=== PATIENT | male | born 1960 | race Caucasian/White ===

== ENCOUNTER 2017-05-24 10:03 | Day surgery (SDC) | payer MEDICAID, SELFPAY ==
[2017-05-24] VITALS (11 sets, daily range): BP systolic 137–217; BP diastolic 55–123; PULSE 48–94; RESP 16–20; TEMP 36.1–37.1; O2SAT 91–100; BMI 19.9
[2017-05-24 11:19] LABS: Amphetamine Urine VISTA NEGATIVE (<1000 ng/mL); Barbiturate Urine VISTA NEGATIVE (< 200 ng/mL); Benzodiazepine Urine VISTA NEGATIVE (< 200 ng/mL); Cocaine Urine VISTA NEGATIVE (< 300 ng/mL); Ecstacy Urine VISTA NEGATIVE (< 500 ng/mL); Methadone Urine VISTA NEGATIVE (< 300 ng/mL); PCP Urine VISTA NEGATIVE (< 25 ng/mL); THC Urine VISTA POSITIVE (< 50 ng/mL); Vista UDS pH Range 5
[2017-05-24 11:37] LABS: Hematocrit 46.9 % (40-54); Hemoglobin 16.3 g/dl (13.0-16.5); Mean Corp Hgb Conc 34.8 g/gl (32-36); Mean Corpuscular Hgb 33.6 pg (27.0-32.0); Mean Corpuscular Volume 96.7 fL (80-94); Mean Platelet Vol. 10.9 fl (6.2-12.0); Platelet Count 137 K/mm3 (150-450); RBC Distribution Width CV 12.9 % (11.6-14.6); RBC Distribution Width SD 44.7 fl (35.1-43.9); Red Blood Count 4.85 M/mm3 (4.6-6.2); White Blood Count 5.5 K/mm3 (4.4-11.0)
[2017-05-24 11:38] LABS: Scan Indicated on CBC? Y/N NO
[2017-05-24 11:50] LABS: ALB/GLOB Ratio 1.1 RATIO (0.9-2.4); AST(SGOT) 16 U/L (15-37); Alanine Aminotransfer ALT/SGPT 21 U/L (16-61); Albumin, Serum 3.7 g/dL (3.2-5.0); Alkaline Phosphatase 68 U/L (45-117); BUN 22 mg/dL (7-18); BUN/Creat Ratio 17.6 RATIO (10-20); Calcium,Total 8.7 mg/dL (8.5-10.1); Chloride 105 mmol/L (98-107); Creatinine, Serum 1.25 mg/dL (0.70-1.30); EST Glomerular Filtration Rate 63 mL/min (>60); Est Glom Filt Rate - Afr Amer 76 mL/min (>60); Globulin 3.4 g/dL (2.2-4.2); Glucose 83 mg/dL (70-110); Potassium 4.9 mmol/L (3.5-5.1); Protein, Total 7.1 g/dL (6.4-8.2); Sodium Level 139 mmol/L (136-145)
[2017-05-24 11:51] LABS: Anion Gap 3 (5-15)
[2017-05-24] MEDS: Dibucaine 30 GM Tube 1 APPLIC (12:54)
[2017-05-24] MEDS: Bupivacaine Mpf 0.5% 30 ML VIAL (12:54)
--- NOTE | 2017-05-24 12:55 | HEM_PTH ---
PATIENT: ISHAN MCCANN [place] [facility] [place][id number] AGE/SX: 57/M ROOM: RE05/24/[address]: Dr. Twan Bruner MD : 1960 BED: DIS: 05/24/2017 SPEC #: [id number] RECD: 05/24/17 16:00 STATUS: VARUN HUMBERTO #: [id number] SHEA: 05/24/17 12:[address]: Twan Bruner DEPT: SURGICAL PATHOLOGY RECD BY: Jian Cardona ENTERED: 05/27/17 10:44 SP TYPE: HEMORRHOID OT DR: No Primary Care Phys Tissues: A - HEMORRHOIDS B - HEMORRHOIDS C - HEMORRHOIDS Procedures: Surgery Specimen Level III HEADER OPERATION: EUA, hemorrhoidectomy PRE-OP DIAGNOSIS: Extensive symptomatic hemorrhoids TISSUE SUBMITTED: A ? Right anterior hemorrhoid, B ? Left lateral hemorrhoid, C ? Right posterior hemorrhoid MICROSCOPIC DIAGNOSIS A. Right anterior hemorrhoid: Fragment of anorectal mucosa with dilated and congested blood vessels, consistent with hemorrhoid. B. Left lateral hemorrhoid: Fragment of anorectal mucosa with dilated and congested blood vessels, consistent with hemorrhoid. C. Right posterior hemorrhoid: A piece of squamous mucosa with dilated and congested blood vessels, consistent with hemorrhoid with focal area of organizing thrombus formation. SJ:jarett 05/28/17 MICROSCOPIC DESCRIPTION Slides are reviewed. GROSS DESCRIPTION A - Received in fixative is one container labeled with the patient's name and designated anterior hemorrhoid. The specimen consists of a discoid fragment of pink mucosa with attached hemorrhagic submucosal tissue measuring 4 x 2.5 x 2 cm. Sections do not reveal mass lesions. Director Of [employer] sections are submitted in one cassette. B - Received in fixative is one container labeled with the patient's name and designated lateral hemorrhoid. The specimen consists of a discoid fragment of pink mucosa with attached hemorrhagic submucosal tissue measuring 3 x 1 x 0.8 cm. Sections do not reveal mass lesions. The specimen is bisected and totally submitted in one cassette. C - Received in fixative is one container labeled with the patient's name and designated posterior hemorrhoid. The specimen consists of a discoid fragment of pink mucosa with attached hemorrhagic submucosal tissue measuring 3 x 1 x 0.6 cm. Sections do not reveal mass lesions. The specimen is bisected and totally submitted in one cassette. / AM:jarett 05/27/17 TC:5 CPT: 85559 x3
[2017-05-24] MEDS: Cefazolin 2 GM in 0.9% Normal Saline 100 ML IV (13:05)
--- NOTE | 2017-05-24 14:03 | OP.PCM_ITS ---
Report of Operation Date of Procedure: 05/24/17 Pre-Operative Diagnosis: grade 4 hemorrhoids Post-Operative Diagnosis: grade 4 hemorrhoids Surgery/Procedure Performed:: EUA, 2 quadrant hemorrhoidectomy Description of Surgical Findings:: as above Type of Anesthesia:: General Anesthesiologist: Win James - ASA2 Specimen's removed: right anterior, left lateral and right posterior hemorrhoidal complexes Estimated Blood Loss (mL): 100 Fluids Replaced: 500 Description of Procedure: The patient was brought to the operating suite. Sign in was performed verifying patient, site, procedure, position, and DVT prophylaxis with SCDs. Patient received 2.0gm of Cefotetan for antibiotic prophylaxis. Following induction of general anesthetic. The patient was transferred to supine position to the prone jackknife position with care being taken to avoid pressure points. The patient?s pilonidal area was then prepped and draped in the usual fashion. Timeout was performed verifying patient site procedure position. External examination demonstrated significant prolapsing hemorrhoids in all quadrants Grade 4. Bi-digital exam demonstrated significant hemorrhoids with prolapsing mucosa and no other palpable abnormalities Local anesthetic was injected around the planned excision site. All 3 quadrants were addressed. Largest to smallest. The limit of the resection was marked on the lateral anoderm with a hemostat, the hemorrhoidal main complex was grasped with a Umanzor clamp and the apex grasped with a small hemostat. A scalpel was used to start the dissection on the lateral anoderm and dissection carried to the dentate line. At this point, the sphincter complex was dissected off the hemorrhoid to avoid sphincter injury bluntly. Electrocautery was then used to dissect the hemorrhoid proximal to the dentate line. A 2-0 chromic ogavqo-gn-bygye suture was placed above the apex of the proximal resection. The hemorrhoidal complex transected. Each hemorrhoidal complex was sent separately. The defect was then closed with a running locking suture. The dentate line transition to a simple suture. This procedure was repeated for the additional 2 hemorrhoidal complexes. With good hemostasis, half percent Marcaine was injected in the perianal skin and dibucaine impregnated Gelfoam was placed in the anal canal. A dressing was applied and mesh pants were used to hold the dressing in place. The patient was returned to the supine position and extubated and brought to recovery room in stable condition. - Admit VTE Documentation VTE Present on Admission: No VTE Mechan Device Prophylaxis: SCD's
--- NOTE | 2017-05-24 14:05 | PCM.DC.REC ---
Discharge Diet: No Restrictions Discharge Activity: Return to Normal Activity, May Not Drive - while taking narcotic pain medications. Additional Activity Instructions:: Do not drive or work with heavy equipment or sign legal documents for 24 hours. Be aware that pain medications may cause nausea. You should typically eat light foods as you take your pain medications. Pain medications may also cause constipation, if you have difficulty with this please discuss with your doctor. Additional Dressing/Incision Instructions:: Leave the operative bandage on for 2 days. If a local anesthetic plug was placed in the anal area, try not to expel for 24-[address] dibucaine ointment on the perianal area as needed. Sitz baths twice daily and after bowel movements. Allergies/Adverse Reactions: Allergies No Known Allergies Allergy (Verified 06/01/13 16:36) Medications to take at Discharge Lisinopril [Zestril] 10 mg PO DAILY #30 tablet 06/02/13 Nicotine [Nicoderm] 14 mg TRANSDERM. DAILY #14 patch 06/02/13 Oxycodone HCl/Acetaminophen [Percocet 5-325] 1 tablet PO Q4H PRN PRN #20 tablet 06/02/13 Oxygen, Home [Home Oxygen] 2 lpm NASAL UD #1 unit 06/02/13 Rizatriptan Benzoate [Maxalt] 10 mg PO .[X1 PRN] PRN #14 tablet 06/02/13 Sumatriptan Succinate 6 mg SQ UD #1 pen 06/02/13 Temazepam [Restoril] 15 mg PO QHS PRN PRN #30 capsule 06/02/13 Oxycodone [Oxyir] 5 mg PO Q4H PRN PRN 5 Days #16 tab 05/24/17 The following prescriptions were given: Oxycodone [Oxyir] 5 mg PO Q4H PRN PRN 5 Days #16 tab PRN Reason: Severe Pain (6-01/29) Primary Care Physician: Care Physician,No Primary [Primary Care Provider] - Please Follow Up With: Twan Bruner MD - [phone] When: Plan to have a follow up approximately 7 days after surgery.
== END 2017-05-24 17:12 | disposition home or self-care (01) ==
LOC: SDC 10:06 → AC 10:07
PROVIDERS: Visit Provider Surgery
PROC: (CPT 46250; principal; 2017-05-24 12:40)
DX: K64.3 Fourth degree hemorrhoids (principal); I10 Essential (primary) hypertension; Z79.899 Other long term (current) drug therapy; F17.210 Nicotine dependence, cigarettes, uncomplicated
CPT/HCPCS: 46250; 80053; 80307; 85027; 88304; J7120; J2405

== ENCOUNTER 2018-10-11 19:52 | Emergency (ER) | payer MEDICAID, SELFPAY ==
[2018-10-11 19:53] VITALS: BP 162/84; PULSE 74; RESP 18; TEMP 36.7; O2SAT 98; BMI 20.2
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
[2018-10-11] MEDS: HYDROcodone Bitartrate/Apap 5/325 Tablet PO (21:23)
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
[2018-10-11] MEDS: morphine 8 MG/ML Syringe IM (22:05)
[2018-10-11 22:32] VITALS: PULSE 71; RESP 18; O2SAT 98
== END 2018-10-11 22:37 | disposition home or self-care (01) ==
PROVIDERS: Emergency Provider Emergency Medicine
DX: S43.101A Unspecified dislocation of right acromioclavicular joint, initial encounter (principal); S20.211A Contusion of right front wall of thorax, initial encounter; Y09 Assault by unspecified means; Z72.0 Tobacco use
CPT/HCPCS: 71046; 73030; 96372; 99283; A4216

== ENCOUNTER → 2018-10-17 | Outpatient (CLI) | payer MEDICAID, SELFPAY ==
[2017-05-24 10:36] VITALS: BMI 19.9
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
== END | disposition home or self-care (01) ==
LOC: HPRAD 08:43
PROVIDERS: Referring Provider Orthopaedic Surgery; Visit Provider Orthopaedic Surgery
DX: S49.91XA Unspecified injury of right shoulder and upper arm, initial encounter (principal)
CPT/HCPCS: 71130; 73030

== ENCOUNTER → 2018-10-29 | Outpatient (CLI) | payer MEDICAID, SELFPAY ==
[2018-10-17 08:45] VITALS: BMI 19.9
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
== END | disposition home or self-care (01) ==
LOC: CT 17:50
PROVIDERS: Referring Provider Orthopaedic Surgery; Visit Provider Orthopaedic Surgery
DX: S43.101A Unspecified dislocation of right acromioclavicular joint, initial encounter (principal)
CPT/HCPCS: 73200

== ENCOUNTER 2019-05-13 21:28 | Inpatient (IN) | payer MEDICAID, SELFPAY ==
[2018-11-03 08:56] VITALS: BMI 20.2
[2019-05-13 21:29] VITALS: BP 138/75; PULSE 63; RESP 18; TEMP 36.7; O2SAT 99; BMI 18.3
--- NOTE | 2019-05-13 21:39 | ED.RN ---
RN CALLED FOR EKG, PULLED OLD EKGS FOR
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
--- NOTE | 2019-05-13 22:43 | US_ITS ---
STUDY: ABDOMINAL ULTRASOUND - RIGHT UPPER QUADRANT REASON FOR VISIT: Male, 59 years old UPPER ABD PAIN X 3 DAYS please note the patient was not nothing by mouth at the time of the examination. TECHNIQUE: Ultrasound evaluation of the right upper quadrant was performed with real-time and static montoya-scale imaging. TECHNICAL QUALITY: Adequate. COMPARISON: None. FINDINGS: Liver: The liver measures 14.2 cm. There is normal echogenicity of the liver. The bile ducts are within normal limits. There is hepatic color flow. The direction of portal flow is hepatopetal. There is a 1.2 x 1.2 cm cyst within the right hepatic lobe. Gallbladder: There is a contracted gallbladder. The gallbladder wall measures 2.8 mm. There is a negative sonographic Santos''s sign. There is no pericholecystic fluid. There are no gallstones. Common Bile Duct (C.B.D.): The common bile duct measures 5.5 mm. Pancreas: Normal size of the head, body and tail of the pancreas. There is normal echogenicity of the pancreas. There is no demonstrated pancreatic mass or cyst. Right Kidney: Normal size of the right kidney. The right kidney measures 7.7 cm in diameter. Normal renal cortex. There is no demonstrated renal mass or cyst. There is right hydronephrosis. US/Gallbladder IMPRESSION: Right hydronephrosis. Contracted gallbladder with no associated pericholecystic fluid nor reported sonographic Santos''s sign. 1.2 cm hepatic cyst. Electronically Signed: Brenna Ramirez MD at 23:47 EST Tel , Service support ,
--- NOTE | 2019-05-13 22:44 | ED.DCSUM_ITS ---
History of Present Illness Chief Complaint: Shortness of Breath Narrative: Patient is a 59-year-old male who presents with nausea and vomiting. He initially became ill about 3 days ago. He reports nausea and vomiting as well as decreased oral intake. He noticed that his urine looked like orange juice. He then noticed that his stool was white. He denies any history of prior similar problems. He has no known liver disease. He denies alcohol use. He has had no abdominal surgeries. He also reports subjective fevers with chills and sweats but has not checked a temperature. He complains of shortness of breath with exertion. No chest pain. He complains of epigastric abdominal pain which he describes as severe and burning. Past Medical History - Allergies and Home Meds Allergies/Adverse Reactions: Allergies No Known Allergies Allergy (Verified 10/31/18 09:51) Primary Care Physician: Adolfo Pierson MD [Primary Care Provider] - Past Medical History: - - Hypertension Smoking Status: Current every day smoker Review of Systems All systems negative except as indicated General: Reports: Chills, Sweats Eyes: Denies: Visual changes - bilaterally ENT: Denies: Bilateral ear pain Cardiovascular: Denies: Chest pain Respiratory: Reports: Dyspnea. Denies: Cough Gastrointestinal: Reports: Abdominal pain, Nausea, Vomiting Musculoskeletal: Denies: Myalgias, Arthralgias Skin: Denies: Rash Neurological: Denies: Headache Hematologic: Denies: Easy bruising Allergy: Denies: Uticaria Physical Exam Vital Signs/Narrative: Vital Signs Temp Pulse Resp BP Pulse Ox 05/13/19 21:29 98.0 F 63 18 138/75 H 99 Inital Vital Signs reviewed: Yes General: - - Patient is ill-appearing, tearful Head: Normocephalic Eyes: EOMI ENT: Moist mucous membranes Neck: Supple Cardiovascular: Regular rate, Regular rhythm Respiratory: No distress, CTA bilaterally, Wheezing. Negative for: Rales, Rhonchi Abdomen: Soft, Tender - Epigastric and right upper quadrant abdominal tenderness, no guarding, no rebound, nondistended. Negative for: Guarding, Rebound tenderness Extremities: Nontender Skin: Jaundice Neurological: Alert Psychological: Tearful Diagnostic/Tx/Re-eval Impressions Chest X-Ray 05/13/19 21:51 IMPRESSION: Degenerative changes, as described above. No demonstrated acute cardiopulmonary process. Electronically Signed: Nathen Larry MD at 22:07 EST , Service support , Gallbladder Ultrasound 05/13/19 22:43 IMPRESSION: Right hydronephrosis. Contracted gallbladder with no associated pericholecystic fluid nor reported sonographic Santos''s sign. 1.2 cm hepatic cyst. Electronically Signed: Brenna Ramirez MD at 23:47 EST Tel , Service support , 05/13/19 21:51 Xray Chest [Chest PA and Lateral] [RAD] Stat 05/13/19 22:43 Gallbladder [US] Stat Laboratory Results 05/13/19 05/13/19 05/13/19 23:05 23:05 23:06 WBC 4.0 L RBC 4.89 Hgb 15.4 Hct 47.3 MCV 96.7 H MCH 31.5 MCHC 32.6 RDW Std Deviation 46.4 H RDW Coeff of Duncan 13.0 Plt Count 123 L MPV 12.1 H Immature Gran % (Auto) 0.200 Neut % (Auto) 45.4 L Lymph % (Auto) 40.1 Howell % (Auto) 13.6 H Eos % (Auto) 0.5 Baso % (Auto) 0.2 Absolute Neuts (auto) 1.8 L Absolute Lymphs (auto) 1.62 Nucleated RBC % 0 Differential Comment SCANNED Sodium 138 Potassium 3.7 Chloride 103 Carbon Dioxide 32.0 Anion Gap 3 L BUN 21 H Creatinine 1.32 H Estim Creat Clear Calc 53.11 Est GFR (MDRD) Af Amer 71 Est GFR (MDRD) Non-Af 59 L BUN/Creatinine Ratio 15.9 Glucose 69 L Calcium 8.0 L Total Bilirubin 4.60 H AST 1655 H ALT 3196 H Alkaline Phosphatase 225 H Total Protein 6.4 Albumin 2.9 L Globulin 3.5 Albumin/Globulin Ratio 0.8 L Lipase 146 Urine Color Zahida Urine Clarity Sl. Cloudy Urine pH 6.0 Ur Specific [place] 1.025 Urine Protein 100 H Urine Glucose (UA) Normal Urine Ketones 5 H Urine Occult Blood 25 H Urine Nitrite Positive H Urine Bilirubin 6 H Urine Urobilinogen 8 H Ur Leukocyte Esterase 25 H Urine RBC 0 SEEN Urine WBC 0-5 SEEN Ur Squamous Epith Cells 0-5 SEEN Urine Bacteria RARE Urine Mucus 0 SEEN - Medical Decision Making Patient's presentation is concerning for acute hepatitis/liver failure. Laboratory evaluation as above. Patient was symptomatically treated here with IV fluids, morphine, Zofran with improvement of symptoms. He is resting more comfortably on reevaluation. EKG shows sinus bradycardia with a right bundle branch block, no acute ischemic changes. Chest x-ray shows no acute process. Laboratory studies were notable for total bilirubin of 4.6, AST approximately 1600, ALT approximately 3200. Right upper quadrant ultrasound does not show obstructive process. The gallbladder is contracted but no pericholecystic fluid or evidence of obvious acute cholecystitis. Liver was normal except for hepatic cyst. Presentation is more suggestive of hepatocellular injury rather than obstructive process. I did add on an acute hepatitis panel as well as acetaminophen level although the patient states he has not taken acetaminophen in several years. Patient was discussed with the hospitalist who agrees to admit. ED Disposition - Plan for ED Patient: Disposition: Acute Care Hospital [facility] Diagnosis: Acute hepatitis Referrals: Adolfo Pierson MD [Primary Care Provider] -
--- NOTE | 2019-05-13 22:44 | EKG12_ITS ---
Test Reason : SOB Blood Pressure : / mmHG Vent. Rate : 058 BPM Atrial Rate : 058 BPM P-R Int : 128 ms QRS Dur : 142 ms QT Int : 468 ms P-R-T Axes : 075 089 066 degrees QTc Int : 459 ms Sinus bradycardia Right bundle branch block Abnormal ECG Confirmed by ANTHONY TINEO, GABBY ([id number]), make up editor CARLI DEL RIO ([id number]) on 05/15/2019 2:34:42 PM Referred By: LINDSEY Confirmed By:LATASHA CRUZ MD
[2019-05-13] MEDS: Morphine 4 MG/ML Syringe IV (23:02)
[2019-05-13] MEDS: Ondansetron 4 MG/2 ML Vial IV (23:02)
[2019-05-13] MEDS: 0.9% Normal Saline 1,000 ML 1000 ML IV (23:03)
[2019-05-13 23:13] LABS: Mucous, Urine 0 SEEN /hpf (<or=2+); Red Blood Cells-Urine 0 SEEN /hpf (0-5)
[2019-05-13 23:19] LABS: Color, Urine Amber (Yellow); Glucose, Dipstick Normal (Normal); Ketone-Dipstick 5 mg/dl (Negative); Leukocyte Esterase-Dipstick 25 /ul (Negative); Nitrite-Dipstick Positive (Negative); Occult Blood-Urine 25 /ul (Negative); Protein-Dipstick 100 mg/dl (Negative); Specific Gravity, Urine 1.025 (1.002-1.030); Urine Clarity Sl. Cloudy (Clear); Urine Urobilinogen 8 mg/dl (Normal)
[2019-05-13 23:20] LABS: Urine Bilirubin Dipstick 6 mg/dL (Negative)
[2019-05-13 23:25] LABS: Absolute Lymphocyte Count 1.62 X10^3/uL (0.83-4.51); Absolute Neutrophil Count 1.8 X10^3/uL (2.0-7.7); Basophil# 0.01 X10^3/uL; Basophil% 0.2 % (0-1); Eosinophil# 0.02 X10^3/uL; Eosinophils% 0.5 % (0-5); Hematocrit 47.3 % (40-54); Hemoglobin 15.4 g/dL (13.0-16.5); Lymphocyte # 1.62 X10^3/ul (4.0); Lymphocyte % 40.1 % (19-41); Mean Corp Hgb Conc 32.6 g/dL (32-36); Mean Corpuscular Hgb 31.5 pg (27.0-32.0); Mean Corpuscular Volume 96.7 fL (80-94); Mean Platelet Vol. 12.1 fl (6.2-12.0); Monocyte# 0.55 X10^3/uL; Monocyte% 13.6 % (0-10); NRBC Flagged by Analyzer 0 % (0-5); Neutrophil # 1.83 X10^3/uL (2.7-7.7); Neutrophil % 45.4 % (47-70); POSITIVE MORPHOLOGY YES; Platelet Count 123 K/mm3 (150-450); RBC Distribution Width SD 46.4 fl (35.1-43.9); Red Blood Count 4.89 M/mm3 (4.6-6.2)
[2019-05-13 23:25] LABS: Bacteria RARE /hpf (None Seen); White Blood Cells 0-5 SEEN /hpf (0-5)
[2019-05-13 23:26] LABS: Squamous Epithelial Cells - UA 0-5 SEEN /hpf (0-5)
[2019-05-13 23:28] LABS: Differential Indicated SCAN CRITERIA MET
[2019-05-13 23:29] VITALS: BP 144/74; PULSE 54; RESP 18; O2SAT 97
[2019-05-13 23:49] LABS: Differential Comment SCANNED
[2019-05-14] VITALS (8 sets, daily range): BP systolic 121–156; BP diastolic 52–69; PULSE 50–56; RESP 15–17; TEMP 36.6–36.8; O2SAT 95–98; BMI 18.1
[2019-05-14 00:01] LABS: ALB/GLOB Ratio 0.8 RATIO (0.9-2.4); AST(SGOT) 1655 U/L (15-37); Alanine Aminotransfer ALT/SGPT 3196 U/L (16-61); Albumin, Serum 2.9 g/dL (3.2-5.0); Alkaline Phosphatase 225 U/L (45-117); Anion Gap 3 (5-15); BUN 21 mg/dL (7-18); BUN/Creat Ratio 15.9 RATIO (10-20); Chloride 103 mmol/L (98-107); Creatinine, Serum 1.32 mg/dL (0.70-1.30); EST Glomerular Filtration Rate 59 mL/min (>60); Est Glom Filt Rate - Afr Amer 71 mL/min (>60); Estimated Creatinine Clearance 53.11 ml/min; Globulin 3.5 g/dL (2.2-4.2); Glucose 69 mg/dL (74-106); Lipase 146 U/L (73-393); Potassium 3.7 mmol/L (3.5-5.1); Protein, Total 6.4 g/dL (6.4-8.2); Sodium Level 138 mmol/L (136-145)
--- NOTE | 2019-05-14 00:11 | PCM.HP.STD ---
Problem List (1) Elevated liver enzymes Status: Acute History of Present Illness Date of Admission: 05/14/19 Chief Complaint: NAUSEA AND VOMITING The patient is a 59 year old M with a significant history of tobacco abuse; HTN and cluster headache who presented with a 3-day history of persistent nausea and vomiting. Associated with his symptoms is epigastric pain and right upper quadrant pain. He reports pale stools and tea colored urine. He reports that a friend told him that he looked pale. At the emergency department his liver enzymes were severely elevated. He reported that recently his girlfriend had hepatitis. Ultrasound of his liver showed a contracted gallbladder: 1.2 cm hepatic cyst;. Past Medical History Past Medical History (Chronic Problems): Chronic Problems (This Medical Record has been edited. Action required.) Cluster headache (Chronic) Medical History: Medical History (This Medical Record has been edited. Action required.) HTN (hypertension) I10 Allergies No Known Allergies Allergy (Verified 10/31/18 09:51) Home Medications: Ambulatory Orders Medication Instructions Recorded Lisinopril [Zestril] 10 mg PO DAILY #30 tablet 06/02/13 Nicotine [Nicoderm] 14 mg TRANSDERM. DAILY #14 patch 06/02/13 Oxycodone HCl/Acetaminophen 1 tablet PO Q4H PRN PRN #20 tablet 06/02/13 [Percocet 5-325] Oxygen, Home [Home Oxygen] 2 lpm NASAL UD #1 unit 06/02/13 Rizatriptan Benzoate [Maxalt] 10 mg PO .[X1 PRN] PRN #14 tablet 06/02/13 Sumatriptan Succinate 6 mg SQ UD #1 pen 06/02/13 Temazepam [Restoril] 15 mg PO QHS PRN PRN #30 capsule 06/02/13 Dibucaine [Nupercainal] 60 gm RC Q1H PRN #3 oint...g. 05/24/17 Oxycodone [Oxyir] 5 mg PO Q4H PRN PRN 5 Days #16 tab 05/24/17 meloxicam 15 mg tablet 15 mg PO DAILY #20 tab 11/03/18 Surgical History: no surgical history Lives: Alone Smoking Status: Current every day smoker Tobacco Use: Cigarettes Alcohol: None - *Family History Maternal History Items: - - Patient does not know Paternal History Items: - - Cluster Headaches Review of Systems Constitutional: Reports: Anorexia. Denies: Chills, Fever, Weight Change HEENT: Denies: Head Aches, Sinus Congestion, Sinus Drainage Cardiovascular: Denies: Chest Pain, Palpitations Respiratory: Denies: Cough, Shortness of breath at rest, Sputum production Gastrointestinal: Reports: Abdominal Pain, Nausea, Vomiting Genitourinary: Denies: Dysuria Musculoskeletal: Denies: Joint Pain, Joint Tenderness Skin: Denies: Rash, Wounds Neurological: Denies: Numbness, Tingling, Focal weakness Psychiatric: Denies: Anxiety, Depression, Homicidal Ideations, Suicidal Ideations Hematologic/ Lymphatic: Denies: Easy Bruising, Easy Bleeding VTE Information - Inpt Only VTE Present on Admission: No VTE Mechan Device Prophylaxis: None VTE Pharm Prophylaxis ordered?: Yes Patient Problems: Active and Suspected Problems (This Medical Record has been edited. Action required.) Acute hepatitis (Acute) Elevated liver enzymes (Acute) - Physical Exam Vitals/I&O's: Vital Signs Temp Pulse Resp BP Pulse Ox 98.0 F 54 L 18 144/74 H 97 05/13/19 21:29 05/13/19 23:29 05/13/19 23:29 05/13/19 23:29 05/13/19 23:29 Oxygen Delivery Method Room Air Weight: 63.1 kg Body Mass Index (BMI) 18.3 Intake and Output for Last 24 Hours 05/12/19 05/13/19 05/14/19 23:59 23:59 23:59 Intake Total 1000 / 1000 Balance 1000 / 1000 General: Alert, Oriented x3, Cooperative HEENT: Atraumatic, PERRLA, EOMI, Normocephalic, - - Sclera icterus Oral: - - Loss of many teeth Neck: Supple, No JVD, Negative Carotid Bruits Lungs: Clear to auscultation, Normal air movement Cardiovascular: Regular rate, Normal S1, Normal S2, No murmurs Abdomen: Bowel Sounds Present, Soft, Non Tender Extremities: No edema, Capillary Refill Less than 3 Seconds Skin: No rashes, No breakdown, - - Jaundice Musculoskeletal: No Tenderness to Palpation of Joints or Extremities Neurological: Cranial nerves II-XII grossly intact Psych/Mental Status: - - Teary Laboratory Results 05/13/19 23:05: WBC 4.0 L, RBC 4.89, Hgb 15.4, Hct 47.3, MCV 96.7 H, MCH 31.5, MCHC 32.6, RDW Std Deviation 46.4 H, RDW Coeff of [place] 13.0, Plt Count 123 L, MPV 12.1 H, Immature Gran % (Auto) 0.200, Neut % (Auto) 45.4 L, Lymph % (Auto) 40.1, Prentiss % (Auto) 13.6 H, Eos % (Auto) 0.5, Baso % (Auto) 0.2, Absolute Neuts (auto) 1.8 L, Absolute Lymphs (auto) 1.62, Nucleated RBC % 0, Differential Comment SCANNED 05/13/19 23:05: Sodium 138, Potassium 3.7, Chloride 103, Carbon Dioxide 32.0, Anion Gap 3 L, BUN 21 H, Creatinine 1.32 H, Estim Creat Clear Calc 53.11, Est GFR (MDRD) Af Amer 71, Est GFR (MDRD) Non-Af 59 L, BUN/Creatinine Ratio 15.9, Glucose 69 L, Calcium 8.0 L, Total Bilirubin 4.60 H, AST 1655 H, ALT 3196 H, Alkaline Phosphatase 225 H, Total Protein 6.4, Albumin 2.9 L, Globulin 3.5, Albumin/Globulin Ratio 0.8 L, Lipase 146 05/13/19 23:06: Urine Color Zahida, Urine Clarity Sl. Cloudy, Urine pH 6.0, Ur Specific [place] 1.025, Urine Protein 100 H, Urine Glucose (UA) Normal, Urine Ketones 5 H, Urine Occult Blood 25 H, Urine Nitrite Positive H, Urine Bilirubin 6 H, Urine Urobilinogen 8 H, Ur Leukocyte Esterase 25 H, Urine RBC 0 SEEN, Urine WBC 0-5 SEEN, Ur Squamous Epith Cells 0-5 SEEN, Urine Bacteria RARE, Urine Mucus 0 SEEN Assessment/Plan All Active Problems (This Medical Record has been edited. Action required.) Acute hepatitis (Acute) Elevated liver enzymes (Acute) The patient is a 59 year old M with a significant history of tobacco abuse; HTN and cluster headache who presented with a 3-day history of persistent nausea and vomiting; abdominal pain and found to have elevated liver enzymes. Elevated liver enzymes Likely hepatitis. On presentation his liver enzymes and bilirubin were severely elevated. Repeat CMP in the a.m. Discussed with emergency department doctor to get INR. Patient has low albumin. Hepatitis panel and tylenol level was ordered at the emergency department; follow. Clear Liquid diet. Supportive treatment with IV fluids and PRN oxycodone. Abnormal urinalysis could be secondary to hepatitis. Hypoglycemia On presentation his blood glucose was 69. May be sign of liver failure. Will start dextrose with half-normal saline. Accu-Cheks every 4 hours. HTN On presentation his blood pressure was not within goal Home blood pressure medication continued. DVT prophylaxis Subcutaneous Lovenox Code Visit Inpatient E&M: 15743 Init Hosp L3
[2019-05-14 01:08] LABS: International Normalized Ratio 1.1; Prothrombin Time (Protime)PT. 14.3 SECONDS (11.7-14.9)
[2019-05-14] MEDS: Dext 5%-0.45% NS 1,000 ML 75 ML IV ×2 (01:44→15:18)
[2019-05-14 01:46] LABS: Bedside Glucose 102 mg/dL (70-110)
[2019-05-14 01:52] LABS: Acetaminophen (Tylenol) Level < 2.0 ug/mL (10.0-30.0)
[2019-05-14] MEDS: Morphine 2 MG/ML Syringe IV ×3 (04:02→21:46)
[2019-05-14] MEDS: Ondansetron 4 MG/2 ML Vial IV (04:06)
[2019-05-14 06:12] LABS: Absolute Lymphocyte Count 1.58 X10^3/uL (0.83-4.51); Absolute Neutrophil Count 1.8 X10^3/uL (2.0-7.7); Basophil# 0.02 X10^3/uL; Basophil% 0.5 % (0-1); Differential Indicated SCAN CRITERIA MET; Eosinophil# 0.02 X10^3/uL; Eosinophils% 0.5 % (0-5); Hematocrit 44.5 % (40-54); Hemoglobin 14.7 g/dL (13.0-16.5); Lymphocyte # 1.58 X10^3/ul (4.0); Lymphocyte % 40.4 % (19-41); Mean Corpuscular Hgb 31.8 pg (27.0-32.0); Mean Corpuscular Volume 96.3 fL (80-94); Mean Platelet Vol. 11.9 fl (6.2-12.0); Monocyte# 0.44 X10^3/uL; Monocyte% 11.3 % (0-10); NRBC Flagged by Analyzer 0 % (0-5); Neutrophil # 1.84 X10^3/uL (2.7-7.7); POSITIVE MORPHOLOGY YES; Platelet Count 110 K/mm3 (150-450); RBC Distribution Width SD 46.3 fl (35.1-43.9); Red Blood Count 4.62 M/mm3 (4.6-6.2); White Blood Count 3.9 K/mm3 (4.4-11.0)
[2019-05-14 06:37] LABS: Reactive Lymphocyte 1+
[2019-05-14 06:41] LABS: Bedside Glucose 104 mg/dL (70-110)
[2019-05-14 06:54] LABS: ALB/GLOB Ratio 0.8 RATIO (0.9-2.4); AST(SGOT) 1386 U/L (15-37); Alanine Aminotransfer ALT/SGPT 2768 U/L (16-61); Albumin, Serum 2.5 g/dL (3.2-5.0); Alkaline Phosphatase 201 U/L (45-117); Anion Gap 4 (5-15); BUN 19 mg/dL (7-18); BUN/Creat Ratio 19.2 RATIO (10-20); Calcium,Total 7.6 mg/dL (8.5-10.1); Chloride 107 mmol/L (98-107); Creatinine, Serum 0.99 mg/dL (0.70-1.30); EST Glomerular Filtration Rate 82 mL/min (>60); Est Glom Filt Rate - Afr Amer 99 mL/min (>60); Estimated Creatinine Clearance 69.81 ml/min; Globulin 3.3 g/dL (2.2-4.2); Glucose 109 mg/dL (74-106); Potassium 3.9 mmol/L (3.5-5.1); Protein, Total 5.8 g/dL (6.4-8.2); Sodium Level 136 mmol/L (136-145)
[2019-05-14] MEDS: Ensure Clear 120 ML Liquid PO ×3 (09:24→21:41)
[2019-05-14] MEDS: 0.9% Saline Lock 10 ML Syringe IV (09:25)
[2019-05-14] MEDS: amLODIPine 10 MG Tablet PO (09:29)
[2019-05-14] MEDS: Metoprolol(XL)Succ 50 MG Tablet PO (09:29)
[2019-05-14] MEDS: hydroCHLOROthiazide 12.5mg 12.5 MG PO (09:32)
[2019-05-14] MEDS: Enoxaparin 40 MG/0.4 ML Syringe SC (09:33)
[2019-05-14 09:46] LABS: Bedside Glucose 127 mg/dL (70-110)
--- NOTE | 2019-05-14 10:01 | CASEMGMT ---
ASHWIN SMALLS assessment: Face to Face with patient for initial transition planning/care coordination assessment. ASHWIN SMALLS introduced self and role at [facility], pt voices understanding and consents to assessment at this time. Pt is lying in bed in no distress at this time. Pt is A/Ox4 at this time and answers all questions appropriately at this time. Care providers, pharmacy, and demographics verified at this time. Presentation: Pt c/o SOB x4 days, pt states 'I think it's the flu.' Admitting dx: Elevated liver enzymes-pt states sig other recently dx with hepatitis PCP: Kenna Specialists: Pt states currently has no specialists. Preferred Pharmacy: [facility] Insurance: [facility] community plan Prescription Benefit: [facility] comm plan Living Will/HPOA: Pt states does not have LW/HPOA and declines info at this time. LNOK: Quiana Howard, sig other Living Arrangements: Pt states lives alone in 1 story home with laundry in basement and states no concerns at home at this time. Pt states is independent with ADL's. Transportation: Pt states can drive self but does not currently have a vehicle and declines transportation resources at this time. DME/HHC: Pt states has home oxygen prn for 'headaches' and states it's currently thru [employer] but they are trying to switch him to another DME company as they no longer take his insurance. Pt states no need for any further DME at this time. Pt states no hx of HHC or SNF in the past. Pt states no concerns with going home at time of discharge. Pt states is currently unemployed but is trying to get disability. Pt states does not smoke or drink ETOH. Pt states no further concerns/needs at this time. CM to follow for any further discharge planning/needs. Advised pt to ask for CM if any further questions/concerns/needs arise, voices understanding. Pt Goal: Home Plan[place] ASHWIN SMALLS
--- NOTE | 2019-05-14 13:34 | PCM.PN.HOSP ---
<Dyllan Rodgers - Last Filed: 05/14/19 13:34> Patient Problems: Active and Suspected Problems (This Medical Record has been edited. Action required.) Acute hepatitis (Acute) Elevated liver enzymes (Acute) Reason for Visit: malaise Subjective: Patient states that he has just felt unwell and sickly the last several days. He has some nausea and vomiting, denies diarrhea. Denies abdominal pain. No fevers or chills. He denies excessive Tylenol use, denies IV drug use, denies personal history of hepatitis however his girlfriend has hepatitis. Patient also denies alcohol use. Vitals/I&O's: Vital Signs Temp Pulse Resp BP Pulse Ox 98.0 F 51 L 16 155/69 H 96 05/14/19 09:15 05/14/19 09:29 05/14/19 09:15 05/14/19 09:15 05/14/19 09:15 Oxygen Delivery Method Room Air Weight: 137 lb 2.04 oz Body Mass Index (BMI) 18.1 Intake and Output for Last 24 Hours 05/12/19 05/13/19 05/14/19 23:59 23:59 23:59 Intake Total 1650 / 1650 Balance 1650 / 1650 General: Alert, Oriented x3, Cooperative HEENT: Atraumatic, PERRLA, EOMI, Normocephalic Neck: Supple, No JVD, Negative Carotid Bruits Lungs: Clear to auscultation, Normal air movement Cardiovascular: Regular rate, No murmurs Abdomen: Bowel Sounds Present, Soft, Tender - midepigastric Extremities: No edema, Capillary Refill Less than 3 Seconds Skin: No rashes, No breakdown Musculoskeletal: No Tenderness to Palpation of Joints or Extremities Neurological: Cranial nerves II-XII grossly intact Psych/Mental Status: Anxious, Alert and oriented to time, place, person, mood and affect Laboratory Results 05/13/19 23:05: WBC 4.0 L, RBC 4.89, Hgb 15.4, Hct 47.3, MCV 96.7 H, MCH 31.5, MCHC 32.6, RDW Std Deviation 46.4 H, RDW Coeff of Duncan 13.0, Plt Count 123 L, MPV 12.1 H, Immature Gran % (Auto) 0.200, Neut % (Auto) 45.4 L, Lymph % (Auto) 40.1, Becker % (Auto) 13.6 H, Eos % (Auto) 0.5, Baso % (Auto) 0.2, Absolute Neuts (auto) 1.8 L, Absolute Lymphs (auto) 1.62, Nucleated RBC % 0, Differential Comment SCANNED 05/13/19 23:05: Sodium 138, Potassium 3.7, Chloride 103, Carbon Dioxide 32.0, Anion Gap 3 L, BUN 21 H, Creatinine 1.32 H, Estim Creat Clear Calc 53.11, Est GFR (MDRD) Af Amer 71, Est GFR (MDRD) Non-Af 59 L, BUN/Creatinine Ratio 15.9, Glucose 69 L, Calcium 8.0 L, Total Bilirubin 4.60 H, AST 1655 H, ALT 3196 H, Alkaline Phosphatase 225 H, Total Protein 6.4, Albumin 2.9 L, Globulin 3.5, Albumin/Globulin Ratio 0.8 L, Lipase 146 05/13/19 23:06: Urine Color Zahida, Urine Clarity Sl. Cloudy, Urine pH 6.0, Ur Specific [place] 1.025, Urine Protein 100 H, Urine Glucose (UA) Normal, Urine Ketones 5 H, Urine Occult Blood 25 H, Urine Nitrite Positive H, Urine Bilirubin 6 H, Urine Urobilinogen 8 H, Ur Leukocyte Esterase 25 H, Urine RBC 0 SEEN, Urine WBC 0-5 SEEN, Ur Squamous Epith Cells 0-5 SEEN, Urine Bacteria RARE, Urine Mucus 0 SEEN 05/14/19 00:18: Acetaminophen < 2.0 L 05/14/19 00:18: Hepatitis A IgM Ab Pending, Hep Bs Antigen Pending, Hep B Core IgM Ab Pending, Hepatitis C Ab (EIA) Pending 05/14/19 00:18: PT 14.3, INR 1.1 05/14/19 01:43: POC Glucose 102 05/14/19 05:50: WBC 3.9 L, RBC 4.62, Hgb 14.7, Hct 44.5, MCV 96.3 H, MCH 31.8, MCHC 33.0, RDW Std Deviation 46.3 H, RDW Coeff of [place] 13.0, Plt Count 110 L, MPV 11.9, Immature Gran % (Auto) 0.300, Neut % (Auto) 47.0, Lymph % (Auto) 40.4, Becker % (Auto) 11.3 H, Eos % (Auto) 0.5, Baso % (Auto) 0.5, Absolute Neuts (auto) 1.8 L, Absolute Lymphs (auto) 1.58, Nucleated RBC % 0, Reactive Lymphocytes 1+ 05/14/19 05:50: Sodium 136, Potassium 3.9, Chloride 107, Carbon Dioxide 25.0, Anion Gap 4 L, BUN 19 H, Creatinine 0.99, Estim Creat Clear Calc 69.81, Est GFR (MDRD) Af Amer 99, Est GFR (MDRD) Non-Af 82, BUN/Creatinine Ratio 19.2, Glucose 109 H, Calcium 7.6 L, Total Bilirubin 4.10 H, AST 1386 H, ALT 2768 H, Alkaline Phosphatase 201 H, Total Protein 5.8 L, Albumin 2.5 L, Globulin 3.3, Albumin/Globulin Ratio 0.8 L 05/14/19 05:55: POC Glucose 104 05/14/19 07:52: CMV IgM Ab Pending, EBV Capsid Ag IgG Ab Pending, EBV Capsid Ag IgM Ab Pending, EBV Early Antigen IgG Pending, EBV Nuclear Ag IgG Ab Pending, EBV Antibody Interp Pending 05/14/19 09:36: POC Glucose 127 H Current Medications Amlodipine Besylate (Norvasc) 10 mg PO DAILY [facility] Last Admin: 05/14/19 09:29 Dose: 10 mg Documented by: Enoxaparin Sodium (Lovenox) 40 mg SC DAILY [facility] Last Admin: 05/14/19 09:33 Dose: 40 mg Documented by: Glucagon () 1 mg IM .X1 PRN PRN Reason: Hypoglycemia Hydrochlorothiazide () 12.5 mg PO DAILY [facility] Last Admin: 05/14/19 09:32 Dose: 12.5 mg Documented by: Dextrose/Sodium Chloride () 1,000 mls @ 75 mls/hr IV .[id number] [facility] Last Admin: 05/14/19 01:44 Dose: 75 mls/hr Documented by: Sodium Chloride () 250 mls @ 15 mls/hr IV .[id number] PRN PRN Reason: Saline Flush Sodium Chloride () 250 mls @ 15 mls/hr IV .[id number] PRN PRN Reason: Additional IVPB Infusion Dextrose (Dextrose 10%-Water) 250 mls @ 999 mls/hr IV .Q16M PRN; Protocol PRN Reason: HYPOGLYCEMIA Metoprolol Succinate (Toprol Xl (Beta Nita)) 50 mg PO DAILY [facility] Last Admin: 05/14/19 09:29 Dose: 50 mg Documented by: Morphine Sulfate () 2 mg IV Q3H PRN PRN PRN Reason: Pain Score 6-10/10 Last Admin: 05/14/19 09:25 Dose: 2 mg Documented by: Nutritional Formula (Lactose Free) (Ensure Clear) 120 ml PO 4X/DAY [facility] Last Admin: 05/14/19 09:24 Dose: 120 ml Documented by: Ondansetron HCl (Zofran) 4 mg IV Q8H PRN PRN PRN Reason: NAUSEA/VOMITING Last Admin: 05/14/19 04:06 Dose: 4 mg Documented by: Sodium Chloride () 10 - 40 ml IV UD PRN PRN Reason: SALINE FLUSH Last Admin: 05/14/19 09:25 Dose: 10 ml Documented by: Medical Necessity - Tobacco Use Smoking Status: Current every day smoker Tobacco Use: Cigarettes Assessment/Plan All Active Problems (This Medical Record has been edited. Action required.) Acute hepatitis (Acute) Elevated liver enzymes (Acute) 1. Acute liver injury-unclear etiology. Girlfriend has hepatitis. Hepatitis panel is pending. Denies history of drug abuse, alcoholism, Tylenol use. Acetaminophen level negative. LFTs are improving. Continue IV fluids. Ultrasound of the gallbladder demonstrates right hydronephrosis, 1.2 cm hepatic cyst, contracted gallbladder no pericholecystic fluid, negative sonographic Santos sign. Lipase negative. EBV/CMV pending. INR 1.1. Platelets 123. 2. Hypertension-Toprol, HCTZ, Norvasc. DVT ppx: Lovenox - repeat CBC in AM, platelets decreased. DC if further decline This patient was seen by Dyllan Rodgers PA-C under the supervision of Dr. Sofia. <Nilton Sofia - Last Filed: 05/14/19 13:45> Reason for Visit: hepatitis Vitals/I&O's: Vital Signs Temp Pulse Resp BP Pulse Ox 36.7 C 51 L 16 155/69 H 96 05/14/19 09:15 05/14/19 09:29 05/14/19 09:15 05/14/19 09:15 05/14/19 09:15 Oxygen Delivery Method Room Air Weight: 62.2 kg Body Mass Index (BMI) 18.1 Intake and Output for Last 24 Hours 05/12/19 05/13/19 05/14/19 23:59 23:59 23:59 Intake Total 1650 / 1650 Balance 1650 / 1650 General: Alert, Cooperative HEENT: Atraumatic, Normocephalic, - - icterus Neck: No Nodes, Trachea Midline Lungs: Clear to auscultation, Normal air movement, No rhonchi, No wheeze Cardiovascular: Regular rate, Regular Rhythm, Normal S1, Normal S2, No murmurs Abdomen: Bowel Sounds Present, Soft, - - +hepatomegaly, approxiamately 3 finger breadth below the costal margin. no splenomegaly Skin: No rashes, No breakdown Musculoskeletal: No Tenderness to Palpation of Joints or Extremities Laboratory Results 05/13/19 23:05: WBC 4.0 L, RBC 4.89, Hgb 15.4, Hct 47.3, MCV 96.7 H, MCH 31.5, MCHC 32.6, RDW Std Deviation 46.4 H, RDW Coeff of [place] 13.0, Plt Count 123 L, MPV 12.1 H, Immature Gran % (Auto) 0.200, Neut % (Auto) 45.4 L, Lymph % (Auto) 40.1, Becker % (Auto) 13.6 H, Eos % (Auto) 0.5, Baso % (Auto) 0.2, Absolute Neuts (auto) 1.8 L, Absolute Lymphs (auto) 1.62, Nucleated RBC % 0, Differential Comment SCANNED 05/13/19 23:05: Sodium 138, Potassium 3.7, Chloride 103, Carbon Dioxide 32.0, Anion Gap 3 L, BUN 21 H, Creatinine 1.32 H, Estim Creat Clear Calc 53.11, Est GFR (MDRD) Af Amer 71, Est GFR (MDRD) Non-Af 59 L, BUN/Creatinine Ratio 15.9, Glucose 69 L, Calcium 8.0 L, Total Bilirubin 4.60 H, AST 1655 H, ALT 3196 H, Alkaline Phosphatase 225 H, Total Protein 6.4, Albumin 2.9 L, Globulin 3.5, Albumin/Globulin Ratio 0.8 L, Lipase 146 05/13/19 23:06: Urine Color Zahida, Urine Clarity Sl. Cloudy, Urine pH 6.0, Ur Specific [place] 1.025, Urine Protein 100 H, Urine Glucose (UA) Normal, Urine Ketones 5 H, Urine Occult Blood 25 H, Urine Nitrite Positive H, Urine Bilirubin 6 H, Urine Urobilinogen 8 H, Ur Leukocyte Esterase 25 H, Urine RBC 0 SEEN, Urine WBC 0-5 SEEN, Ur Squamous Epith Cells 0-5 SEEN, Urine Bacteria RARE, Urine Mucus 0 SEEN 05/14/19 00:18: Acetaminophen < 2.0 L 05/14/19 00:18: Hepatitis A IgM Ab Pending, Hep Bs Antigen Pending, Hep B Core IgM Ab Pending, Hepatitis C Ab (EIA) Pending 05/14/19 00:18: PT 14.3, INR 1.1 05/14/19 01:43: POC Glucose 102 05/14/19 05:50: WBC 3.9 L, RBC 4.62, Hgb 14.7, Hct 44.5, MCV 96.3 H, MCH 31.8, MCHC 33.0, RDW Std Deviation 46.3 H, RDW Coeff of [place] 13.0, Plt Count 110 L, MPV 11.9, Immature Gran % (Auto) 0.300, Neut % (Auto) 47.0, Lymph % (Auto) 40.4, Becker % (Auto) 11.3 H, Eos % (Auto) 0.5, Baso % (Auto) 0.5, Absolute Neuts (auto) 1.8 L, Absolute Lymphs (auto) 1.58, Nucleated RBC % 0, Reactive Lymphocytes 1+ 05/14/19 05:50: Sodium 136, Potassium 3.9, Chloride 107, Carbon Dioxide 25.0, Anion Gap 4 L, BUN 19 H, Creatinine 0.99, Estim Creat Clear Calc 69.81, Est GFR (MDRD) Af Amer 99, Est GFR (MDRD) Non-Af 82, BUN/Creatinine Ratio 19.2, Glucose 109 H, Calcium 7.6 L, Total Bilirubin 4.10 H, AST 1386 H, ALT 2768 H, Alkaline Phosphatase 201 H, Total Protein 5.8 L, Albumin 2.5 L, Globulin 3.3, Albumin/Globulin Ratio 0.8 L 05/14/19 05:55: POC Glucose 104 05/14/19 07:52: CMV IgM Ab Pending, EBV Capsid Ag IgG Ab Pending, EBV Capsid Ag IgM Ab Pending, EBV Early Antigen IgG Pending, EBV Nuclear Ag IgG Ab Pending, EBV Antibody Interp Pending 05/14/19 09:36: POC Glucose 127 H Current Medications Amlodipine Besylate (Norvasc) 10 mg PO DAILY [facility] Last Admin: 05/14/19 09:29 Dose: 10 mg Documented by: Enoxaparin Sodium (Lovenox) 40 mg SC DAILY [facility] Last Admin: 05/14/19 09:33 Dose: 40 mg Documented by: Glucagon () 1 mg IM .X1 PRN PRN Reason: Hypoglycemia Hydrochlorothiazide () 12.5 mg PO DAILY [facility] Last Admin: 05/14/19 09:32 Dose: 12.5 mg Documented by: Dextrose/Sodium Chloride () 1,000 mls @ 75 mls/hr IV .[id number] [facility] Last Admin: 05/14/19 01:44 Dose: 75 mls/hr Documented by: Sodium Chloride () 250 mls @ 15 mls/hr IV .[id number] PRN PRN Reason: Saline Flush Sodium Chloride () 250 mls @ 15 mls/hr IV .[id number] PRN PRN Reason: Additional IVPB Infusion Dextrose (Dextrose 10%-Water) 250 mls @ 999 mls/hr IV .Q16M PRN; Protocol PRN Reason: HYPOGLYCEMIA Metoprolol Succinate (Toprol Xl (Beta Nita)) 50 mg PO DAILY [facility] Last Admin: 05/14/19 09:29 Dose: 50 mg Documented by: Morphine Sulfate () 2 mg IV Q3H PRN PRN PRN Reason: Pain Score 6-10/10 Last Admin: 05/14/19 09:25 Dose: 2 mg Documented by: Nutritional Formula (Lactose Free) (Ensure Clear) 120 ml PO 4X/DAY [facility] Last Admin: 05/14/19 09:24 Dose: 120 ml Documented by: Ondansetron HCl (Zofran) 4 mg IV Q8H PRN PRN PRN Reason: NAUSEA/VOMITING Last Admin: 05/14/19 04:06 Dose: 4 mg Documented by: Sodium Chloride () 10 - 40 ml IV UD PRN PRN Reason: SALINE FLUSH Last Admin: 05/14/19 09:25 Dose: 10 ml Documented by: Assessment/Plan Patient seen and examined independently. Data reviewed. I agree with the above note by the physician assistant clinical nurse manager. 1. acute hepatitis trending down slightly unclear etiology, though suspect acute viral. is also ill with what sounds like similar condition. supportive mgmt consider transfer to tertiary facility if worsens. Code Visit Inpatient E&M: 77711 Subs Hosp L2
[2019-05-14 14:10] LABS: Bedside Glucose 106 mg/dL (70-110)
[2019-05-14 18:06] LABS: Bedside Glucose 111 mg/dL (70-110)
[2019-05-14 21:20] LABS: Bedside Glucose 131 mg/dL (70-110)
[2019-05-15 02:00] VITALS: BP 143/71; PULSE 51; RESP 16; TEMP 36.8; O2SAT 96
[2019-05-15 02:00] LABS: Bedside Glucose 109 mg/dL (70-110)
[2019-05-15] MEDS: Dext 5%-0.45% NS 1,000 ML 75 ML IV (03:37)
[2019-05-15 04:06] LABS: HEPATITIS B SURFACE AG Negative (Negative); Hepatitis B Core AB IgM Negative (Negative)
[2019-05-15 06:19] LABS: ALB/GLOB Ratio 0.7 RATIO (0.9-2.4); AST(SGOT) 1014 U/L (15-37); Alanine Aminotransfer ALT/SGPT 2359 U/L (16-61); Albumin, Serum 2.6 g/dL (3.2-5.0); Alkaline Phosphatase 217 U/L (45-117); Anion Gap 5 (5-15); BUN 16 mg/dL (7-18); BUN/Creat Ratio 17.7 RATIO (10-20); Chloride 102 mmol/L (98-107); Creatinine, Serum 0.91 mg/dL (0.70-1.30); EST Glomerular Filtration Rate 91 mL/min (>60); Est Glom Filt Rate - Afr Amer 110 mL/min (>60); Estimated Creatinine Clearance 75.95 ml/min; Globulin 3.5 g/dL (2.2-4.2); Glucose 95 mg/dL (74-106); Protein, Total 6.1 g/dL (6.4-8.2); Sodium Level 133 mmol/L (136-145)
[2019-05-15 06:45] LABS: Bedside Glucose 102 mg/dL (70-110)
[2019-05-15 07:04] VITALS: O2SAT 97
[2019-05-15 09:23] LABS: Hep C Antibodies 0.1 s/co ratio (0.0-0.9)
[2019-05-15 09:25] LABS: Hepatitis A IgM Antibody Positive (Negative)
[2019-05-15 09:45] VITALS: BP 145/74; PULSE 51; RESP 15; TEMP 36.7; O2SAT 96
[2019-05-15] MEDS: amLODIPine 10 MG Tablet PO (10:53)
[2019-05-15] MEDS: hydroCHLOROthiazide 12.5mg 12.5 MG PO (10:53)
[2019-05-15] MEDS: Ensure Clear 120 ML Liquid PO ×2 (10:53→16:42)
[2019-05-15 10:54] VITALS: BP 145/74; PULSE 51
[2019-05-15] MEDS: Metoprolol(XL)Succ 50 MG Tablet PO (10:54)
--- NOTE | 2019-05-15 11:53 | PN_ITS ---
<Dyllan Rodgers - Last Filed: 05/15/19 11:53> Patient Problems: Active and Suspected Problems (This Medical Record has been edited. Action required.) Acute hepatitis (Acute) Elevated liver enzymes (Acute) Reason for Visit: malaise Subjective: Pt with ongoing malaise, poor appetite, RUQ abd pain, nausea without vomiting. No diarrhea. Vitals/I&O's: Vital Signs Temp Pulse Resp BP Pulse Ox 98.0 F 51 L 15 145/74 H 96 05/15/19 09:45 05/15/19 10:54 05/15/19 09:45 05/15/19 10:54 05/15/19 09:45 Oxygen Delivery Method Room Air Weight: 137 lb 2.04 oz Body Mass Index (BMI) 18.1 Intake and Output for Last 24 Hours 05/13/19 05/14/19 05/15/19 23:59 23:59 23:59 Intake Total 3615 / 3615 1043.75 / 1043.75 Output Total 650 / 650 Balance 3615 / 3615 393.75 / 393.75 General: Alert, Oriented x3, Cooperative HEENT: Atraumatic, PERRLA, EOMI, Normocephalic Neck: Supple, No JVD, Negative Carotid Bruits Lungs: Clear to auscultation, Normal air movement Cardiovascular: Regular rate, No murmurs Abdomen: Bowel Sounds Present, Soft, Tender - RUQ tenderness with guarding. Extremities: No edema, Capillary Refill Less than 3 Seconds Skin: No rashes, No breakdown Musculoskeletal: No Tenderness to Palpation of Joints or Extremities Neurological: Cranial nerves II-XII grossly intact Psych/Mental Status: Normal Affect, Appropriate Laboratory Results 05/14/19 00:18: Hepatitis A IgM Ab Positive H, Hep Bs Antigen Negative, Hep B Core IgM Ab Negative, Hepatitis C Ab (EIA) 0.1 05/14/19 14:05: POC Glucose 106 05/14/19 17:59: POC Glucose 111 H 05/14/19 21:13: POC Glucose 131 H 05/15/19 01:52: POC Glucose 109 05/15/19 05:11: POC Glucose 102 05/15/19 05:42: Sodium 133 L, Potassium 4.0, Chloride 102, Carbon Dioxide 26.0, Anion Gap 5, BUN 16, Creatinine 0.91, Estim Creat Clear Calc 75.95, Est GFR (MDRD) Af Amer 110, Est GFR (MDRD) Non-Af 91, BUN/Creatinine Ratio 17.7, Glucose 95, Calcium 8.0 L, Total Bilirubin 5.50 H, AST 1014 H, ALT 2359 H, Alkaline Phosphatase 217 H, Total Protein 6.1 L, Albumin 2.6 L, Globulin 3.5, Albumin/Globulin Ratio 0.7 L Current Medications Amlodipine Besylate (Norvasc) 10 mg PO DAILY [facility] Last Admin: 05/15/19 10:53 Dose: 10 mg Documented by: Enoxaparin Sodium (Lovenox) 40 mg SC DAILY [facility] Last Admin: 05/15/19 10:58 Dose: Not Given Documented by: Glucagon () 1 mg IM .X1 PRN PRN Reason: Hypoglycemia Hydrochlorothiazide () 12.5 mg PO DAILY [facility] Last Admin: 05/15/19 10:53 Dose: 12.5 mg Documented by: Sodium Chloride () 250 mls @ 15 mls/hr IV .[id number] PRN PRN Reason: Saline Flush Sodium Chloride () 250 mls @ 15 mls/hr IV .[id number] PRN PRN Reason: Additional IVPB Infusion Dextrose (Dextrose 10%-Water) 250 mls @ 999 mls/hr IV .Q16M PRN; Protocol PRN Reason: HYPOGLYCEMIA Metoprolol Succinate (Toprol Xl (Beta Nita)) 50 mg PO DAILY [facility] Last Admin: 05/15/19 10:54 Dose: 50 mg Documented by: Morphine Sulfate () 2 mg IV Q3H PRN PRN PRN Reason: Pain Score 6-10/10 Last Admin: 05/14/19 21:46 Dose: 2 mg Documented by: Nutritional Formula (Lactose Free) (Ensure Clear) 120 ml PO 4X/DAY [facility] Last Admin: 05/15/19 11:45 Dose: Not Given Documented by: Ondansetron HCl (Zofran) 4 mg IV Q8H PRN PRN PRN Reason: NAUSEA/VOMITING Last Admin: 05/14/19 04:06 Dose: 4 mg Documented by: Sodium Chloride () 10 - 40 ml IV UD PRN PRN Reason: SALINE FLUSH Last Admin: 05/14/19 09:25 Dose: 10 ml Documented by: STROKE Vital Signs/Narrative: Vital Signs Temp Pulse Resp BP Pulse Ox 05/15/19 10:54 51 L 145/74 H 05/15/19 09:45 98.0 F 51 L 15 145/74 H 96 Medical Necessity - Tobacco Use Smoking Status: Current every day smoker Tobacco Use: Cigarettes Assessment/Plan All Active Problems (This Medical Record has been edited. Action required.) Acute hepatitis (Acute) Elevated liver enzymes (Acute) 1. Acute liver injury-unclear etiology 2/2 acute hep A: continue supportive care. ongoing RUQ pain/tenderness. Girlfriend has hepatitis. Continue IV fluids. T Bili increased back to 8.0. hep B/C neg. 2. Hypertension-Toprol, HCTZ, Norvasc. DVT ppx: Lovenox - platelets decreased. DC if further decline This patient was seen by Dyllan Rodgers PA-C under the supervision of Dr. Sofia. <Nilton Sofia - Last Filed: 05/15/19 12:23> Vitals/I&O's: Vital Signs Temp Pulse Resp BP Pulse Ox 36.7 C 51 L 15 145/74 H 96 05/15/19 09:45 05/15/19 10:54 05/15/19 09:45 05/15/19 10:54 05/15/19 09:45 Oxygen Delivery Method Room Air Weight: 62.2 kg Body Mass Index (BMI) 18.1 Intake and Output for Last 24 Hours 05/13/19 05/14/19 05/15/19 23:59 23:59 23:59 Intake Total 3615 / 3615 1043.75 / 1043.75 Output Total 650 / 650 Balance 3615 / 3615 393.75 / 393.75 General: Alert, Cooperative HEENT: Atraumatic, Normocephalic, - - icterus Lungs: Clear to auscultation, Normal air movement Cardiovascular: Regular rate, Regular Rhythm, Normal S1, Normal S2, No murmurs Abdomen: Bowel Sounds Present, Soft, Non Tender, Non-Distended, Tender, - - +hepatomegaly Extremities: No edema, No Calf Tenderness Skin: - - Jaundice Psych/Mental Status: Normal Affect, Appropriate Laboratory Results 05/14/19 00:18: Hepatitis A IgM Ab Positive H, Hep Bs Antigen Negative, Hep B Core IgM Ab Negative, Hepatitis C Ab (EIA) 0.1 05/14/19 14:05: POC Glucose 106 05/14/19 17:59: POC Glucose 111 H 05/14/19 21:13: POC Glucose 131 H 05/15/19 01:52: POC Glucose 109 05/15/19 05:11: POC Glucose 102 05/15/19 05:42: Sodium 133 L, Potassium 4.0, Chloride 102, Carbon Dioxide 26.0, Anion Gap 5, BUN 16, Creatinine 0.91, Estim Creat Clear Calc 75.95, Est GFR (MDRD) Af Amer 110, Est GFR (MDRD) Non-Af 91, BUN/Creatinine Ratio 17.7, Glucose 95, Calcium 8.0 L, Total Bilirubin 5.50 H, AST 1014 H, ALT 2359 H, Alkaline Phosphatase 217 H, Total Protein 6.1 L, Albumin 2.6 L, Globulin 3.5, Albumin/Globulin Ratio 0.7 L Current Medications Amlodipine Besylate (Norvasc) 10 mg PO DAILY [facility] Last Admin: 05/15/19 10:53 Dose: 10 mg Documented by: Enoxaparin Sodium (Lovenox) 40 mg SC DAILY [facility] Last Admin: 05/15/19 10:58 Dose: Not Given Documented by: Glucagon () 1 mg IM .X1 PRN PRN Reason: Hypoglycemia Hydrochlorothiazide () 12.5 mg PO DAILY [facility] Last Admin: 05/15/19 10:53 Dose: 12.5 mg Documented by: Sodium Chloride () 250 mls @ 15 mls/hr IV .[id number] PRN PRN Reason: Saline Flush Sodium Chloride () 250 mls @ 15 mls/hr IV .[id number] PRN PRN Reason: Additional IVPB Infusion Dextrose (Dextrose 10%-Water) 250 mls @ 999 mls/hr IV .Q16M PRN; Protocol PRN Reason: HYPOGLYCEMIA Metoprolol Succinate (Toprol Xl (Beta Nita)) 50 mg PO DAILY [facility] Last Admin: 05/15/19 10:54 Dose: 50 mg Documented by: Morphine Sulfate () 2 mg IV Q3H PRN PRN PRN Reason: Pain Score 6-10/10 Last Admin: 05/14/19 21:46 Dose: 2 mg Documented by: Nutritional Formula (Lactose Free) (Ensure Clear) 120 ml PO 4X/DAY [facility] Last Admin: 05/15/19 11:45 Dose: Not Given Documented by: Ondansetron HCl (Zofran) 4 mg IV Q8H PRN PRN PRN Reason: NAUSEA/VOMITING Last Admin: 05/14/19 04:06 Dose: 4 mg Documented by: Sodium Chloride () 10 - 40 ml IV UD PRN PRN Reason: SALINE FLUSH Last Admin: 05/14/19 09:25 Dose: 10 ml Documented by: STROKE Vital Signs/Narrative: Vital Signs Temp Pulse Resp BP Pulse Ox 05/15/19 10:54 51 L 145/74 H 05/15/19 09:45 36.7 C 51 L 15 145/74 H 96 Assessment/Plan Patient seen and examined independently. Data reviewed. I agree with the above note by the physician legal document assistant. 1. acute hepatitis * secondary to Hepatitis A * trending down slightly, though Bili * unclear etiology, though suspect acute viral. is also ill with what sounds like similar condition. * supportive mgmt * consider transfer to tertiary facility if worsens. * DW Dr. Fulton, no need to Hep A vax nor IVIG at this time. * Advised if he cares for his 18 month old, to make sure he is vaccinated. Code Visit Inpatient E&M: 51614 Subs Hosp L2
--- NOTE | 2019-05-15 13:47 | NURSING ---
Son calls and is given update
[2019-05-15 14:22] VITALS: BP 144/67; PULSE 50; RESP 15; TEMP 36.7; O2SAT 95
[2019-05-15] MEDS: 0.9% Saline Lock 10 ML Syringe IV (14:32)
[2019-05-15] MEDS: Morphine 2 MG/ML Syringe IV ×2 (14:32→19:52)
[2019-05-15 17:14] LABS: CMV Acute Antibody IgM < 30.0 AU/mL (0.0-29.9); EBV Acute VCA IgM < 36.0 U/mL (0.0-35.9); EBV Early Antigen IgG <9.0 U/mL (0.0-8.9); EBV-VCA IgG > 600.0 U/mL (0.0-17.9)
[2019-05-15 21:00] VITALS: BP 149/70; PULSE 52; RESP 16; TEMP 37; O2SAT 96
[2019-05-16] MEDS: Morphine 2 MG/ML Syringe IV ×2 (00:26→11:50)
[2019-05-16] MEDS: Ondansetron 4 MG/2 ML Vial IV (00:29)
[2019-05-16 00:50] LABS: Bedside Glucose 124 mg/dL (70-110)
[2019-05-16 03:00] VITALS: BP 124/54; PULSE 50; RESP 14; TEMP 37.1; O2SAT 96
[2019-05-16 06:41] LABS: Hematocrit 45.8 % (40-54); Hemoglobin 15.8 g/dL (13.0-16.5); Mean Corp Hgb Conc 34.5 g/dL (32-36); Mean Corpuscular Hgb 32.5 pg (27.0-32.0); Mean Corpuscular Volume 94.2 fL (80-94); Mean Platelet Vol. 12.3 fl (6.2-12.0); Platelet Count 130 K/mm3 (150-450); RBC Distribution Width CV 12.7 % (11.6-14.6); Red Blood Count 4.86 M/mm3 (4.6-6.2); White Blood Count 4.3 K/mm3 (4.4-11.0)
[2019-05-16 07:21] LABS: ALB/GLOB Ratio 0.7 RATIO (0.9-2.4); AST(SGOT) 703 U/L (15-37); Alanine Aminotransfer ALT/SGPT 1840 U/L (16-61); Albumin, Serum 2.6 g/dL (3.2-5.0); Alkaline Phosphatase 224 U/L (45-117); Anion Gap 6 (5-15); BUN 18 mg/dL (7-18); BUN/Creat Ratio 19.4 RATIO (10-20); Calcium,Total 8.3 mg/dL (8.5-10.1); Chloride 103 mmol/L (98-107); Creatinine, Serum 0.93 mg/dL (0.70-1.30); EST Glomerular Filtration Rate 88 mL/min (>60); Est Glom Filt Rate - Afr Amer 107 mL/min (>60); Estimated Creatinine Clearance 74.31 ml/min; Globulin 3.6 g/dL (2.2-4.2); Glucose 78 mg/dL (74-106); Potassium 4.4 mmol/L (3.5-5.1); Protein, Total 6.2 g/dL (6.4-8.2); Sodium Level 135 mmol/L (136-145)
[2019-05-16] MEDS: 0.9% Saline Lock 10 ML Syringe IV ×2 (07:52→11:54)
[2019-05-16 08:57] VITALS: BP 136/97; PULSE 50; RESP 16; TEMP 36.5; O2SAT 94
[2019-05-16] MEDS: hydroCHLOROthiazide 12.5mg 12.5 MG PO (09:32)
[2019-05-16] MEDS: amLODIPine 10 MG Tablet PO (09:32)
[2019-05-16 09:33] VITALS: PULSE 51
[2019-05-16] MEDS: Metoprolol(XL)Succ 50 MG Tablet PO (09:33)
--- NOTE | 2019-05-16 11:35 | DCINST_ITS ---
- Discharge Diagnoses Current Active Problems: Current Active and Chronic Problems (This Medical Record has been edited. Action required.) Acute hepatitis (Acute) Elevated liver enzymes (Acute) You will use the following diet at home:: Cardiac, Other - no alcohol Your food should be the consistency of: Regular Your liquids should be the consistency of: Regular/Thin Discharge Activity: Return to Normal Activity, - - do not use any acetaminophen containing products Additional Instructions: You will need to have your blood work for you liver (CMP) at follow up. Allergies/Adverse Reactions: Allergies No Known Allergies Allergy (Verified 10/31/18 09:51) Medications to take at Discharge Oxygen, Home [Home Oxygen] 2 lpm NASAL UD #1 unit 06/02/13 Amlodipine [Norvasc] 10 mg PO DAILY 05/14/19 Hydrochlorothiazide 12.5 mg PO DAILY 05/14/19 Metoprolol Succinate [Toprol Xl] 50 mg PO DAILY 05/14/19 Ondansetron HCl [Zofran] 4 mg PO Q6H PRN PRN #12 tab 05/16/19 Oxycodone [Oxyir] 5 mg PO Q6H PRN PRN 3 Days #12 tablet 05/16/19 The following prescriptions were given: Oxycodone [Oxyir] 5 mg PO Q6H PRN PRN 3 Days #12 tablet PRN Reason: Pain Score 6-10/10 Transmission Status: Sent to [facility] Ondansetron HCl [Zofran] 4 mg PO Q6H PRN PRN #12 tab PRN Reason: Nausea [facility] Primary Care Physician: Adolfo Pierson MD [Primary Care Provider] - Please follow up with your Primary Care Physician in: 1-2 weeks Test Results: Test results from this visit will be discussed in further detail at your follow- up appointment, if applicable. Proposed Discharge Date: 05/16/19
[2019-05-16 11:54] VITALS: BP 127/59
--- NOTE | 2019-05-16 13:25 | NURSING ---
Reviewed and agreed on all charting with Jaime Faust RN
--- NOTE | 2019-05-16 13:32 | DS.PCM_ITS ---
<Dyllan Rodgers - Last Filed: 05/16/19 13:32> Discharge Date and Diagnosis - Problem List Patient Problems: Active and Suspected Problems (This Medical Record has been edited. Action required.) Acute hepatitis (Acute) Elevated liver enzymes (Acute) Date of Admission: 05/14/19 Date of Discharge: 05/16/19 - Primary Discharge Diagnosis Active and Suspected Problems (This Medical Record has been edited. Action required.) Acute hepatitis A Elevated liver enzymes (Acute) HTN - Secondary Discharge Diagnosis Chronic Problems (This Medical Record has been edited. Action required.) Cluster headache (Chronic) Hospital Course and Treatment Imaging Results: RAD/Chest PA and Lateral IMPRESSION: Degenerative changes, as described above. No demonstrated acute cardiopulmonary process. US/Gallbladder IMPRESSION: Right hydronephrosis. Contracted gallbladder with no associated pericholecystic fluid nor reported sonographic Santos''s sign. 1.2 cm hepatic cyst. Operations: None Procedures: None Summary of Care Provided: Hospital course: The patient is a 59 year old M with past medical history of hypertension, who presented to the emergency room with complaints of abdominal pain, nausea, vomiting. Is been going on for about 3 days. His girlfriend had recently been diagnosed with hepatitis. In the emergency room his liver enzymes were significantly elevated, lipase was normal. Ultrasound of the liver showed a contracted gallbladder 1.2 cm hepatic cyst. He had significant right upper quadrant tenderness. He was admitted to the PCU and given supportive care. He had slow but gradual improvement in his LFTs. His generalized malaise, nausea, vomiting, and pain all improved. He has some ongoing residual tenderness in his right upper quadrant. His hepatitis panel came back positive for hepatitis A. The patient was discharged home in stable condition. We did have advised to follow-up with his PCP in 1 to 2 weeks, he will need a CMP rechecked when he follows up with his primary care physician. This patient was seen by Dyllan Rodgers PA-C under the supervision of Doctor Sofia. [] Patient Problems: Active and Suspected Problems (This Medical Record has been edited. Action required.) Acute hepatitis (Acute) Elevated liver enzymes (Acute) - Physical Exam Vitals/I&O's: Vital Signs Temp Pulse Resp BP Pulse Ox 97.7 F L 51 L 16 127/59 H 94 05/16/19 08:57 05/16/19 09:33 05/16/19 08:57 05/16/19 11:54 05/16/19 08:57 Oxygen Delivery Method Room Air Weight: 137 lb 2.04 oz Body Mass Index (BMI) 18.1 Intake and Output for Last 24 Hours 05/14/19 05/15/19 05/16/19 23:59 23:59 23:59 Intake Total 3615 / 3615 2480.00 / 2480.00 300 / 300 Output Total 1625 / 1625 1075 / 1075 Balance 3615 / 3615 855.00 / 855.00 -775 / -775 General: Alert, Oriented x3, Cooperative, - - mild jaundice HEENT: Atraumatic, PERRLA, EOMI, Normocephalic Neck: Supple, No JVD, Negative Carotid Bruits Lungs: Clear to auscultation, Normal air movement Cardiovascular: Regular rate, No murmurs Abdomen: Bowel Sounds Present, Soft, Tender - RUQ Extremities: No edema, Capillary Refill Less than 3 Seconds Skin: No rashes, No breakdown Musculoskeletal: No Tenderness to Palpation of Joints or Extremities Neurological: Cranial nerves II-XII grossly intact Psych/Mental Status: Normal Affect, Appropriate Laboratory Results 05/14/19 07:52: CMV IgM Ab < 30.0, EBV Capsid Ag IgG Ab > 600.0 H, EBV Capsid Ag IgM Ab < 36.0, EBV Early Antigen IgG <9.0, EBV Nuclear Ag IgG Ab 306.0 H, EBV Antibody Interp Comment 05/15/19 09:51: POC Glucose 124 H 05/16/19 05:30: WBC 4.3 L, RBC 4.86, Hgb 15.8, Hct 45.8, MCV 94.2 H, MCH 32.5 H, MCHC 34.5, RDW Std Deviation 44.0 H, RDW Coeff of Duncan 12.7, Plt Count 130 L, MPV 12.3 H 05/16/19 05:30: Sodium 135 L, Potassium 4.4, Chloride 103, Carbon Dioxide 26.0, Anion Gap 6, BUN 18, Creatinine 0.93, Estim Creat Clear Calc 74.31, Est GFR (MDRD) Af Amer 107, Est GFR (MDRD) Non-Af 88, BUN/Creatinine Ratio 19.4, Glucose 78, Calcium 8.3 L, Total Bilirubin 5.80 H, AST 703 H, ALT 1840 H, Alkaline Phosphatase 224 H, Total Protein 6.2 L, Albumin 2.6 L, Globulin 3.6, Albumin/Globulin Ratio 0.7 L Current Medications Amlodipine Besylate (Norvasc) 10 mg PO DAILY [facility] Last Admin: 05/16/19 09:32 Dose: 10 mg Documented by: Enoxaparin Sodium (Lovenox) 40 mg SC DAILY [facility] Last Admin: 05/16/19 09:36 Dose: Not Given Documented by: Glucagon () 1 mg IM .X1 PRN PRN Reason: Hypoglycemia Hydrochlorothiazide () 12.5 mg PO DAILY [facility] Last Admin: 05/16/19 09:32 Dose: 12.5 mg Documented by: Sodium Chloride () 250 mls @ 15 mls/hr IV .[id number] PRN PRN Reason: Saline Flush Sodium Chloride () 250 mls @ 15 mls/hr IV .[id number] PRN PRN Reason: Additional IVPB Infusion Dextrose (Dextrose 10%-Water) 250 mls @ 999 mls/hr IV .Q16M PRN; Protocol PRN Reason: HYPOGLYCEMIA Metoprolol Succinate (Toprol Xl (Beta Nita)) 50 mg PO DAILY [facility] Last Admin: 05/16/19 09:33 Dose: 50 mg Documented by: Morphine Sulfate () 2 mg IV Q3H PRN PRN PRN Reason: Pain Score 6-10/10 Last Admin: 05/16/19 11:50 Dose: 2 mg Documented by: Nicotine (Nicoderm Cq (Pbkc)) 14 mg TRANSDERM. DAILY [facility] Last Admin: 05/16/19 09:36 Dose: Not Given Documented by: Nutritional Formula (Lactose Free) (Ensure Enlive) 120 ml PO 4X/DAY [facility] Last Admin: 05/16/19 09:39 Dose: 120 ml Documented by: Ondansetron HCl (Zofran) 4 mg IV Q8H PRN PRN PRN Reason: NAUSEA/VOMITING Last Admin: 05/16/19 00:29 Dose: 4 mg Documented by: Sodium Chloride () 10 - 40 ml IV UD PRN PRN Reason: SALINE FLUSH Last Admin: 05/16/19 11:54 Dose: 10 ml Documented by: Discharge Activity: Return to Normal Activity, - - do not use any acetaminophen containing products Home Medications: Medications to take at Discharge Oxygen, Home [Home Oxygen] 2 lpm NASAL UD #1 unit 06/02/13 Amlodipine [Norvasc] 10 mg PO DAILY 05/14/19 Hydrochlorothiazide 12.5 mg PO DAILY 05/14/19 Metoprolol Succinate [Toprol Xl] 50 mg PO DAILY 05/14/19 Ondansetron HCl [Zofran] 4 mg PO Q6H PRN PRN #12 tab 05/16/19 Oxycodone [Oxyir] 5 mg PO Q6H PRN PRN 3 Days #12 tab 05/16/19 Following Prescrptions Were Given to Patient: Oxycodone [Oxyir] 5 mg PO Q6H PRN PRN 3 Days #12 tab PRN Reason: Pain Score 6-10/10 [facility] Status[facility] Ondansetron HCl [Zofran] 4 mg PO Q6H PRN PRN #12 tab PRN Reason: Nausea Transmission Status: Received by [facility] Primary Care Physician: Adolfo Pierson MD [Primary Care Provider] - Please follow up with your Primary Care Physician in: 1-2 weeks Medical Necessity - Tobacco Use Smoking Status: Current every day smoker Tobacco Use: Cigarettes Meaningful Use Info Meaningful Use Diagnoses (Choose all that apply): None applicable <Nilton Sofia - Last Filed: 05/16/19 13:39> Discharge Date and Diagnosis - Primary Discharge Diagnosis Active and Suspected Problems (This Medical Record has been edited. Action required.) Acute hepatitis (Acute) Elevated liver enzymes (Acute) - Secondary Discharge Diagnosis Chronic Problems (This Medical Record has been edited. Action required.) Cluster headache (Chronic) Hospital Course and Treatment Operations: None Procedures: None Summary of Care Provided: Patient seen and examined independently. Data reviewed. I agree with the above note by the physician automotive service assistant. The patient is a 59 year old M presents with abdominal pain. Patient found to have acute hepatitis with elevated liver transaminases and bilirubin. Patient was found to have a hepatitis A. Patient's girlfriend had a similar presentation though she was not formally diagnosed with hepatitis A. Presumably this is the same process. Overall, the patient is doing better. Patient advised to follow-up with his primary care physician and have lab work done as outpatient. Did discuss with infectious disease who did not feel that the patient would require hepatitis A vaccination nor IVIG. [] - Physical Exam Vitals/I&O's: Vital Signs Temp Pulse Resp BP Pulse Ox 36.5 C L 51 L 16 127/59 H 94 05/16/19 08:57 05/16/19 09:33 05/16/19 08:57 05/16/19 11:54 05/16/19 08:57 Oxygen Delivery Method Room Air Weight: 62.2 kg Body Mass Index (BMI) 18.1 Intake and Output for Last 24 Hours 05/14/19 05/15/19 05/16/19 23:59 23:59 23:59 Intake Total 3615 / 3615 2480.00 / 2480.00 300 / 300 Output Total 1625 / 1625 1075 / 1075 Balance 3615 / 3615 855.00 / 855.00 -775 / -775 General: Alert, Cooperative, - HEENT: Atraumatic, Normocephalic Lungs: Clear to auscultation, Normal air movement Cardiovascular: Regular rate, No murmurs Abdomen: Bowel Sounds Present, Soft, - - + hepatomegaly Laboratory Results 05/14/19 07:52: CMV IgM Ab < 30.0, EBV Capsid Ag IgG Ab > 600.0 H, EBV Capsid Ag IgM Ab < 36.0, EBV Early Antigen IgG <9.0, EBV Nuclear Ag IgG Ab 306.0 H, EBV Antibody Interp Comment 05/15/19 09:51: POC Glucose 124 H 05/16/19 05:30: WBC 4.3 L, RBC 4.86, Hgb 15.8, Hct 45.8, MCV 94.2 H, MCH 32.5 H, MCHC 34.5, RDW Std Deviation 44.0 H, RDW Coeff of Duncan 12.7, Plt Count 130 L, MPV 12.3 H 05/16/19 05:30: Sodium 135 L, Potassium 4.4, Chloride 103, Carbon Dioxide 26.0, Anion Gap 6, BUN 18, Creatinine 0.93, Estim Creat Clear Calc 74.31, Est GFR (MDRD) Af Amer 107, Est GFR (MDRD) Non-Af 88, BUN/Creatinine Ratio 19.4, Glucose 78, Calcium 8.3 L, Total Bilirubin 5.80 H, AST 703 H, ALT 1840 H, Alkaline Phosphatase 224 H, Total Protein 6.2 L, Albumin 2.6 L, Globulin 3.6, Albumin/Globulin Ratio 0.7 L Current Medications Amlodipine Besylate (Norvasc) 10 mg PO DAILY [facility] Last Admin: 05/16/19 09:32 Dose: 10 mg Documented by: Enoxaparin Sodium (Lovenox) 40 mg SC DAILY [facility] Last Admin: 05/16/19 09:36 Dose: Not Given Documented by: Glucagon () 1 mg IM .X1 PRN PRN Reason: Hypoglycemia Hydrochlorothiazide () 12.5 mg PO DAILY [facility] Last Admin: 05/16/19 09:32 Dose: 12.5 mg Documented by: Sodium Chloride () 250 mls @ 15 mls/hr IV .[id number] PRN PRN Reason: Saline Flush Sodium Chloride () 250 mls @ 15 mls/hr IV .[id number] PRN PRN Reason: Additional IVPB Infusion Dextrose (Dextrose 10%-Water) 250 mls @ 999 mls/hr IV .Q16M PRN; Protocol PRN Reason: HYPOGLYCEMIA Metoprolol Succinate (Toprol Xl (Beta Nita)) 50 mg PO DAILY [facility] Last Admin: 05/16/19 09:33 Dose: 50 mg Documented by: Morphine Sulfate () 2 mg IV Q3H PRN PRN PRN Reason: Pain Score 6-10/10 Last Admin: 05/16/19 11:50 Dose: 2 mg Documented by: Nicotine (Nicoderm Cq (Pbkc)) 14 mg TRANSDERM. DAILY [facility] Last Admin: 05/16/19 09:36 Dose: Not Given Documented by: Nutritional Formula (Lactose Free) (Ensure Enlive) 120 ml PO 4X/DAY [facility] Last Admin: 05/16/19 09:39 Dose: 120 ml Documented by: Ondansetron HCl (Zofran) 4 mg IV Q8H PRN PRN PRN Reason: NAUSEA/VOMITING Last Admin: 05/16/19 00:29 Dose: 4 mg Documented by: Sodium Chloride () 10 - 40 ml IV UD PRN PRN Reason: SALINE FLUSH Last Admin: 05/16/19 11:54 Dose: 10 ml Documented by: Discharge Diet: No Restrictions Discharge Activity: Return to Normal Activity, - Disposition: Home Minutes spent on discharge:: 32 Patient Condition:: Good Medical Necessity - Tobacco Use Tobacco Use: Cigarettes Meaningful Use Info Meaningful Use Diagnoses (Choose all that apply): None applicable Code Visit Inpatient E&M: 47833 Disch Hosp
== END 2019-05-16 13:45 | disposition home or self-care (01) ==
LOC: ED 05-14 00:25 → PCU 05-14 01:28
PROVIDERS: Physician Assistant; Admitting Provider Hospitalist; Emergency Provider Emergency Medicine; PCP Family Medicine
DX: B15.9 Hepatitis A without hepatic coma (principal); I10 Essential (primary) hypertension; F17.210 Nicotine dependence, cigarettes, uncomplicated
CPT/HCPCS: 36415; 71046; 76705; 80053; 80074; 80329; 81001; 82962; 83690; 85025; 85027; 85610; 86645; 86663; 86664; 86665; 93005; 97802; 99285; 99406; J7030; A4216; G0480; J2405; J7799

== ENCOUNTER → 2019-06-02 13:46 | Outpatient (CLI) | payer MEDICAID, SELFPAY ==
[2019-05-14 01:07] VITALS: BMI 18.1
[2019-06-02 13:19] VITALS: BMI 19.1
--- NOTE | 2019-06-02 13:48 | CT_ITS ---
STUDY: LOW DOSE CT LUNG CANCER SCREENING REASON FOR EXAM: Male, 59 years old. LUNG CANCER SCREENING, 1.5 PPD X 44 YRS, CURRENT SMOKER, [id number] RADIATION DOSAGE (If Supplied By Facility): CTDIvol = ( 2.01 ) mGy, DLP = ( 85.30 ) mGycm TECHNIQUE: No contrast was administered. Low dose technique was utilized (average mAS-38 and kVp 120). 1.25 mm axial source images with a slice interval of 1.25-mm were reconstructed in lung windows. 2.5 mm axial source images with a slice interval of 2.5-mm were reconstructed in lung windows. 5.0 mm axial source images with a slice interval of 5.0-mm were reconstructed in soft tissue windows. Nodule measured using lung windows on PACS and/or independent workstation with automated measurement of minimum and maximum diameter. Nodule measurement reported as average diameter rounded to the nearest whole number. Growth is defined as an increase ins size of greater than 1.5 mm. COMPARISON: None. NODULES: No suspicious nodular density is seen. Emphysema: Emphysematous changes. Findings in keeping with scarring at both lung apices. Mild cystic changes at the lung bases slightly worse on the right side. Endobronchial lesion: None. Aorta: Atherosclerotic calcification. Coronary arteries: Coronary artery calcification. Mediastinal nodes: Normal size mediastinal lymph nodes. Other chest and abdominal findings: Mild degenerative changes of the thoracic spine. CT/Low Dose CT Lung Screening IMPRESSION: Lung-RADS category 2 - Continue annual screening with LDCT in 12 months. IMPORTANT NOTES FOR USE: ACR Lung-RADS Version 1.0 Assessment Categories Release Date: August 17, 2013 Category: Coded 0-4 bases on nodule(s) with highest degree of suspicion. Negative screen is defined as categories 1 and 2; a positive screen is defined as categories 3 and 4. Category 3 and 4A nodules that are unchanged on interval CT should be coded as category 2, and individuals returned to screening in 12 months. Category 4X: Category 3 or 4 nodules with additional imaging findings that increase the suspicion of lung cancer, such as spiculation, GGN that doubles in size in 1 year, enlarged lymph notes, etc. Category Modifiers: S (significant finding unrelated to lung cancer) and C (prior history of treated lung cancer) may be added to the 0-4 Lung-RADS Electronically Signed: Trey Raymundo, at 14:31 EST , Service support ,
== END ==
PROVIDERS: PCP Family Medicine; Referring Provider Nurse Practitioner Family; Visit Provider Nurse Practitioner Family
DX: F17.209 Nicotine dependence, unspecified, with unspecified nicotine-induced disorders (principal); Z12.2 Encounter for screening for malignant neoplasm of respiratory organs
CPT/HCPCS: G0297

== ENCOUNTER 2020-05-03 13:09 | Observation (INO) | payer MEDICAID, SELFPAY ==
[2019-06-02 13:19] VITALS: BMI 19.1
[2020-05-03 13:10] VITALS: BP 157/78; PULSE 72; RESP 16; TEMP 36.6; O2SAT 99; BMI 20.4
[2020-05-03 13:13] VITALS: BP 157/78; PULSE 72; RESP 16; TEMP 36.6; O2SAT 99
--- NOTE | 2020-05-03 14:04 | CT_ITS ---
STUDY: CT FACIAL BONES WITH CONTRAST REASON FOR EXAM: Male, 60 years old. Facial infection, swelling to upper lip since last night. Hx hypertension. RADIATION DOSAGE (If Supplied By Facility): CTDIvol = ( 29.38 ) mGy, DLP = ( 606.22 ) mGycm TECHNIQUE: The patient was scanned in a multi detector CT scanner. Transaxial imaging was performed following the intravenous administration of 100mL Isovue 300. Sagittal and coronal images were reconstructed. Individualized dose optimization techniques were used for this CT. COMPARISON: None. FINDINGS: There is evidence of diffuse labial swelling bilaterally more prominent on the left side. There is evidence of overlying skin thickening. There is a 1 cm x 0.6 cm area of decreased attenuation in the left side of the upper lip just to the left of the midline. This may represent a focal early abscess collection. This extends into the base of the nose on the left side. Normal orbital spivey and orbital contents. Normal nasal bones and anterior nasal spine. Normal facial bones. There is no demonstrated fracture. Normal visualized paranasal sinuses. CT/Sinus/Facial Bone WITH Contras IMPRESSION: Diffuse labral soft tissue swelling worse on the left side with a focal area measuring 1 cm x 0.6 cm decreased attenuation suggestive of early abscess formation. This extends into the base of the nose on the left side. Electronically Signed: Trey Raymundo, at 15:32 EST , Service support ,
--- NOTE | 2020-05-03 14:05 | ED.VIS.GEN ---
History of Present Illness Chief Complaint: Abscess Narrative: This patient is a 60-year-old male who presents with facial swelling and pain. This began yesterday. He has developed swelling and tenderness of his upper lip more so on the left. He does note that he recently had a sore on the inside of his left nostril last week but this has since resolved. No history of prior similar symptoms. He was previously treated for hypertension with hydrochlorothiazide but quit taking this a couple of weeks ago. Currently takes no daily medications. No MADI inhibitor. He denies any fevers nausea or vomiting. He is not a diabetic. Past Medical History - Allergies and Home Meds Allergies/Adverse Reactions: Allergies No Known Allergies Allergy (Verified 05/03/20 13:13) Primary Care Physician: Adolfo Pierson MD [Primary Care Provider] - Past Medical History: - - Hypertension, noncompliant with medication Surgical History: no surgical history Smoking Status: Current every day smoker - Family History Maternal Family History: Family History (This Medical Record has been edited. Action required.) Mother Skin cancer Family History: Reports: - - Patient does not know Paternal Family History: Family History (This Medical Record has been edited. Action required.) Mother Skin cancer Family History: Reports: - - Cluster Headaches Review of Systems All systems negative except as indicated General: Denies: Fever Eyes: Denies: Visual changes - bilaterally ENT: Reports: - - Lip pain and swelling Cardiovascular: Denies: Chest pain Respiratory: Denies: Dyspnea Gastrointestinal: Denies: Nausea, Vomiting Musculoskeletal: Denies: Myalgias, Arthralgias Skin: Denies: Rash Neurological: Denies: Headache Hematologic: Denies: Easy bruising Allergy: Denies: Uticaria Physical Exam Vital Signs/Narrative: Vital Signs Temp Pulse Resp BP Pulse Ox 05/03/20 13:13 97.8 F 72 16 157/78 H 99 05/03/20 13:10 97.8 F 72 16 157/78 H 99 Inital Vital Signs reviewed: Yes General: Well nourished, Well developed Head: Normocephalic Eyes: EOMI ENT: Moist mucous membranes, - - Patient has angioedema of the upper lip more pronounced on the left. He does have induration of this area on palpation and is exquisitely tender. I do not see any open wounds no fluctuance or drainage. The skin above the upper lip below the nose is difficult to assess due to his mustache Cardiovascular: Regular rate Respiratory: No distress Abdomen: Soft Skin: Normal color Neurological: Alert Psychological: Normal affect Diagnostic/Tx/Re-eval Impressions Facial/Sinus 05/03/20 14:04 IMPRESSION: Diffuse labral soft tissue swelling worse on the left side with a focal area measuring 1 cm x 0.6 cm decreased attenuation suggestive of early abscess formation. This extends into the base of the nose on the left side. Electronically Signed: Trey Zackary, at 15:32 EST , Service support , 05/03/20 14:04 Sinus/Facial Bone WITH Contras [CT] Stat Laboratory Results 05/03/20 05/03/20 14:35 14:35 WBC 14.2 H RBC 4.98 Hgb 16.3 Hct 48.9 MCV 98.2 H MCH 32.7 H MCHC 33.3 RDW Std Deviation 45.9 H RDW Coeff of Duncan 12.6 Plt Count 134 L MPV 11.0 Immature Gran % (Auto) 0.400 Neut % (Auto) 76.1 H Lymph % (Auto) 15.3 L Mellette % (Auto) 8.0 Eos % (Auto) 0.1 Baso % (Auto) 0.1 Absolute Neuts (auto) 10.8 H Absolute Lymphs (auto) 2.17 Nucleated RBC % 0 Sodium 137 Potassium 4.6 Chloride 103 Carbon Dioxide 30.0 Anion Gap 4 L BUN 14 Creatinine 1.17 Estim Creat Clear Calc 65.93 Est GFR (MDRD) Af Amer 82 Est GFR (MDRD) Non-Af 67 BUN/Creatinine Ratio 12.0 Glucose 96 Calcium 9.5 - Medical Decision Making Patient was given IV Toradol for symptoms as well as IV clindamycin. A CT of the face was obtained to further evaluate. This shows diffuse soft tissue labral swelling and a 1 cm x 0.6 cm area of decreased attenuation, possible early abscess. Given location and size I do not feel this is amenable to incision and drainage. I do feel the patient would benefit from IV antibiotics for facial cellulitis and observation regarding his facial swelling/angioedema. ED Disposition - Plan for ED Patient: Disposition: Acute Care Hospital [facility] Diagnosis: Facial cellulitis Referrals: Adolfo Pierson MD [Primary Care Provider] -
[2020-05-03 14:44] LABS: Absolute Lymphocyte Count 2.17 X10^3/uL (0.83-4.51); Absolute Neutrophil Count 10.8 X10^3/uL (2.0-7.7); Basophil# 0.02 X10^3/uL; Basophil% 0.1 % (0-1); Eosinophil# 0.01 X10^3/uL; Eosinophils% 0.1 % (0-5); Hematocrit 48.9 % (40-54); Hemoglobin 16.3 g/dL (13.0-16.5); Lymphocyte # 2.17 X10^3/ul (4.0); Lymphocyte % 15.3 % (19-41); Mean Corp Hgb Conc 33.3 g/dL (32-36); Mean Corpuscular Hgb 32.7 pg (27.0-32.0); Mean Corpuscular Volume 98.2 fL (80-94); Monocyte# 1.14 X10^3/uL; NRBC Flagged by Analyzer 0 % (0-5); Neutrophil % 76.1 % (47-70); Platelet Count 134 K/mm3 (150-450); RBC Distribution Width CV 12.6 % (11.6-14.6); RBC Distribution Width SD 45.9 fl (35.1-43.9); Red Blood Count 4.98 M/mm3 (4.6-6.2); White Blood Count 14.2 K/mm3 (4.4-11.0)
[2020-05-03] MEDS: Ketorolac 30 MG/ML Syringe IV (14:45)
[2020-05-03 14:54] LABS: Anion Gap 4 (5-15); BUN 14 mg/dL (7-18); Calcium,Total 9.5 mg/dL (8.5-10.1); Chloride 103 mmol/L (98-107); Creatinine, Serum 1.17 mg/dL (0.70-1.30); EST Glomerular Filtration Rate 67 mL/min (>60); Est Glom Filt Rate - Afr Amer 82 mL/min (>60); Estimated Creatinine Clearance 65.93 ml/min; Glucose 96 mg/dL (74-106); Potassium 4.6 mmol/L (3.5-5.1); Sodium Level 137 mmol/L (136-145)
--- NOTE | 2020-05-03 16:16 | HP.PCM_ITS ---
Problem List (1) Facial cellulitis Status: Acute (2) Facial abscess Status: Suspected (3) Hypertension Status: Chronic Qualifiers: Hypertension type: essential hypertension Qualified Code(s): I10 - Essential (primary) hypertension (4) Tobacco use Status: Chronic History of Present Illness Date of Admission: 05/03/20 Chief Complaint: Facial swelling, pain. The patient is a 60 y/o M w/ PMHx: HTN noncompliant with medications, Tobacco use who presents to the [facility] ED on 05/03/20 with history of onset significant facial edema and pain beginning the day prior with initially swelling and tenderness of his upper lip primarily on the left with a recent sore on the inside of his left nostril which he notes having been picking at with onset as noted edema, pain overnight following. He notes feeling very cold but denies any recent fever. He notes discomfort with palpation 8-9 out of 10 in severity, if resting has throbbing sensation to the left upper lip lower Perico region rated 5- 6 out of 10. Work-up in the ED included T 97.8, heart rate 72, BP 157/78, respiratory rate 16, 99% on room air, CBC with WC 14.2, hemoglobin 16.3, platelet 134 with left shift, unremarkable BMP, CT Face/Sinus with diffuse labral soft tissue swelling worse on the left side with a focal area measuring 1 x 0.6 cm decreased attenuation suggestive of early abscess formation extending into the base of the nose on the left side. In the ED patient ministered Toradol 30 mg IV x1 as well as clindamycin 600 mg IV x1. Past Medical History Past Medical History (Chronic Problems): Chronic Problems (Last Updated 06/02/19 @ 13:13 by Alejandrina Reyna) Hypertension (Chronic) Tobacco use (Chronic) Cluster headache (Chronic) Medical History: Medical History (Last Updated 06/02/19 @ 13:13 by Alejandrina Reyna) left arm surgery HTN (hypertension) I10 Allergies No Known Allergies Allergy (Verified 05/03/20 13:13) Home Medications: Ambulatory Orders Medication Instructions Recorded NK 05/03/20 Surgical History: Surgical History (This Medical Record has been edited. Action required.) History of hemorrhoidectomy Z98.890 Surgical History: no surgical history Psychiatric History: No pertinent psych hx Lives: Alone Smoking Status: Current every day smoker - Patient with ongoing 1/2 pack/day to 1 pack/day cigarette tobacco usage since youth. Tobacco Use: Cigarettes Alcohol: None Drugs: Marijuana - *Family History Maternal Family History: Family History (This Medical Record has been edited. Action required.) Mother Skin cancer History Items: Cancer - Mother with a history of skin cancer., Hypertension Paternal Family History: Family History (This Medical Record has been edited. Action required.) Mother Skin cancer History Items: Hypertension, - - Father with a history of cluster Headaches, Review of Systems Constitutional: Reports: Chills, Malaise, Weakness, Fatigue. Denies: Anorexia, Fever, Weight Change HEENT: Reports: - - Facial edema, redness, pain, recent L nare sore.. Denies: Head Aches, Sinus Congestion, Sinus Drainage Cardiovascular: Denies: Chest Pain, Palpitations Respiratory: Reports: Cough. Denies: Shortness of breath at rest, Sputum production Gastrointestinal: Denies: Abdominal Pain, Nausea, Vomiting Genitourinary: Denies: Dysuria Musculoskeletal: Denies: Joint Pain, Joint Tenderness Skin: Denies: Rash, Wounds Neurological: Denies: Numbness, Tingling, Focal weakness Psychiatric: Denies: Anxiety, Depression, Homicidal Ideations, Suicidal Ideations Hematologic/ Lymphatic: Denies: Easy Bruising, Easy Bleeding VTE Information - Inpt Only VTE Present on Admission: No VTE Mechan Device Prophylaxis: None VTE Pharm Prophylaxis ordered?: No Reason prophylaxis not ordered:: Treatment Not Indicated Patient Problems: Active and Suspected Problems (Last Updated 06/02/19 @ 13:13 by Alejandrina Reyna) Facial cellulitis (Acute) Subjective: Patient laying in the ED bed, fatigued and uncomfortable appearing. Objective: Physical Examination: General: awake, alert, oriented x 3 and cooperative, seated upright in the ED bed in no apparent distress but uncomfortable appearing. Skin: normal color, turgor, no icterus, cyanosis except notable left nare to left upper lip edema, mild erythema, significant tenderness to palpation, small focal region of increased induration laterally, no open airway involvement, expected tenderness palpation. HEENT: AT/NC, EOMI, PERRLA, dry MM, left nare to left upper lip edema, erythema, tenderness palpation, focal region of induration, no carotid bruits or JVD noted. Lungs: Diminished breath sounds, greater bases, moderate effort, no rales, ronchi or wheezing. Heart: Regular rate and rhythm; no gallop, rub audible. Abdomen: soft, NTTP, ND, normal BS, no HSM. Extremities: no cyanosis, clubbing, or edema. Neurological: patient awake, alert, oriented as noted; cognitive function intact; pupils equally reactive to light and accomodation; cranial nerves II-XII grossly normal, moving all 4 extremities, no focal deficits, strength mildly to moderately global decrease secondary to acute presentation discomfort. Psychiatric: affect appears fatigued, uncomfortable, no acute evidence of depressive or anxiety feelings. - Physical Exam Vitals/I&O's: Vital Signs Temp Pulse Resp BP Pulse Ox 97.8 F 72 16 157/78 H 99 05/03/20 13:13 05/03/20 13:13 05/03/20 13:13 05/03/20 13:13 05/03/20 13:13 Oxygen Delivery Method Room Air Weight: 155 lb Body Mass Index (BMI) 20.4 Intake and Output for Last 24 Hours 05/01/20 05/02/20 05/03/20 23:59 23:59 23:59 Intake Total 54 / 54 Balance 54 / 54 Laboratory Results 05/03/20 14:35: WBC 14.2 H, RBC 4.98, Hgb 16.3, Hct 48.9, MCV 98.2 H, MCH 32.7 H , MCHC 33.3, RDW Std Deviation 45.9 H, RDW Coeff of Duncan 12.6, Plt Count 134 L, MPV 11.0, Immature Gran % (Auto) 0.400, Neut % (Auto) 76.1 H, Lymph % (Auto) 15.3 L, Burt % (Auto) 8.0, Eos % (Auto) 0.1, Baso % (Auto) 0.1, Absolute Neuts (auto) 10.8 H, Absolute Lymphs (auto) 2.17, Nucleated RBC % 0 05/03/20 14:35: Sodium 137, Potassium 4.6, Chloride 103, Carbon Dioxide 30.0, Anion Gap 4 L, BUN 14, Creatinine 1.17, Estim Creat Clear Calc 65.93, Est GFR (MDRD) Af Amer 82, Est GFR (MDRD) Non-Af 67, BUN/Creatinine Ratio 12.0, Glucose 96, Calcium 9.5 Assessment/Plan All Active Problems (Last Updated 06/02/19 @ 13:13 by Alejandrina Reyna) Facial cellulitis (Acute) Acute hepatitis (Acute) Elevated liver enzymes (Acute) The patient is a 60 y/o M w/ PMHx: HTN noncompliant with medications, Tobacco use who presents to the [facility] ED on 05/03/20 with history of onset significant facial edema and pain beginning the day prior with initially swelling and tenderness of his upper lip primarily on the left with a recent sore on the inside of his left nostril which he notes having been picking at with onset as noted edema, pain overnight following. 1. Facial cellulitis and abscess: CT Face/Sinus with diffuse labral soft tissue swelling worse on the left side with a focal area measuring 1 x 0.6 cm decreased attenuation suggestive of early abscess formation extending into the base of the nose on the left side. Will admit to [facility], maintain on IV Unasyn, once I+D would plan to obtain Wound Cx and Wound MRSA PCR if drainage with continued warm compresses, plan repeat CBC in AM, continue head elevation above when seated and in bed, monitor erythema outline with VS checks, maintain NPO status pending AM re-evaluation, IVFs, PRN pain/antiemetic regimen, if not improving will necessitate ENT evaluation in AM. 2. Hypertension: Not on regimen, will closely monitor blood pressures patient resistant to continuing on medications and add oral regimen if appropriate, in the interim as needed IV hydralazine. 3. Tobacco Abuse: Encouraged cessation, inpatient consultation per RT, NR if desired. 4. DVT prophylaxis: Low risk, encourage ambulation. Inpatient E&M: 87273 Init Hosp L3
[2020-05-03 16:17] VITALS: BMI 20.4
[2020-05-03 16:43] VITALS: BP 150/84; PULSE 62; RESP 16; TEMP 36.6; O2SAT 97
[2020-05-03 16:55] VITALS: BMI 19.2
[2020-05-03] MEDS: 0.9% Normal Saline 1,000 ML 100 ML IV (17:05)
[2020-05-03 17:06] VITALS: BP 159/72; PULSE 56; RESP 18; TEMP 37.2; O2SAT 97
--- NOTE | 2020-05-03 17:14 | NURSING ---
pt states okay to share information with his son Kenton and pt daughter in law Zahida. Both would like to give their phone numbers for any needs and states they can communicate with pt via his cell phone. Zahida [phone] Kenton (son) [phone]
--- NOTE | 2020-05-03 17:16 | PCS.PANDOC ---
PANDEMIC DOCUMENTATION INITIATED: Date: 03/28/2020 Time:
[2020-05-03 17:35] VITALS: O2SAT 96
[2020-05-03] MEDS: Ondansetron 4 MG/2 ML Vial IV (17:35)
[2020-05-03] MEDS: Morphine 2 MG/ML Syringe IV (17:35)
[2020-05-03 21:45] VITALS: BP 149/78; PULSE 55; RESP 18; TEMP 36.2; O2SAT 95
[2020-05-03] MEDS: Famotidine 20 MG Tablet PO (21:57)
[2020-05-03] MEDS: MELATONIN 3 MG TABLET PO (22:00)
[2020-05-04] VITALS (9 sets, daily range): BP systolic 159–173; BP diastolic 72–85; PULSE 56–68; RESP 16–18; TEMP 36.6–36.9; O2SAT 91–97
[2020-05-04] MEDS: oxyCODONE 5 MG Tablet PO ×2 (00:28→21:43)
[2020-05-04] MEDS: Acetaminophen 325 MG Tablet 650 MG PO ×2 (00:29→18:52)
[2020-05-04] MEDS: 0.9% Normal Saline 1,000 ML 100 ML IV ×2 (03:56→15:30)
[2020-05-04] MEDS: hydrALAZINE 20 MG/ML Vial 10 MG IV ×2 (04:10→21:46)
[2020-05-04] MEDS: 0.9% Saline Lock 10 ML Syringe IV ×4 (04:11→18:47)
[2020-05-04 07:05] LABS: Absolute Lymphocyte Count 2.27 X10^3/uL (0.83-4.51); Absolute Neutrophil Count 7.4 X10^3/uL (2.0-7.7); Basophil# 0.03 X10^3/uL; Basophil% 0.3 % (0-1); Eosinophil# 0.04 X10^3/uL; Eosinophils% 0.4 % (0-5); Hematocrit 44.3 % (40-54); Hemoglobin 14.9 g/dL (13.0-16.5); Lymphocyte # 2.27 X10^3/ul (4.0); Lymphocyte % 21.4 % (19-41); Mean Corp Hgb Conc 33.6 g/dL (32-36); Mean Corpuscular Hgb 32.7 pg (27.0-32.0); Mean Corpuscular Volume 97.1 fL (80-94); Mean Platelet Vol. 11.6 fl (6.2-12.0); Monocyte# 0.86 X10^3/uL; Monocyte% 8.1 % (0-10); NRBC Flagged by Analyzer 0 % (0-5); Neutrophil # 7.39 X10^3/uL (2.7-7.7); Neutrophil % 69.4 % (47-70); Platelet Count 135 K/mm3 (150-450); RBC Distribution Width CV 12.7 % (11.6-14.6); RBC Distribution Width SD 45.4 fl (35.1-43.9); Red Blood Count 4.56 M/mm3 (4.6-6.2); White Blood Count 10.6 K/mm3 (4.4-11.0)
[2020-05-04 07:37] LABS: ALB/GLOB Ratio 0.9 RATIO (0.9-2.4); AST(SGOT) 20 U/L (15-37); Alanine Aminotransfer ALT/SGPT 26 U/L (16-61); Albumin, Serum 3.3 g/dL (3.2-5.0); Alkaline Phosphatase 81 U/L (45-117); Anion Gap 4 (5-15); BUN 21 mg/dL (7-18); Calcium,Total 8.7 mg/dL (8.5-10.1); Chloride 105 mmol/L (98-107); Creatinine, Serum 1.05 mg/dL (0.70-1.30); EST Glomerular Filtration Rate 76 mL/min (>60); Est Glom Filt Rate - Afr Amer 92 mL/min (>60); Estimated Creatinine Clearance 69.01 ml/min; Globulin 3.6 g/dL (2.2-4.2); Glucose 97 mg/dL (74-106); Potassium 4.5 mmol/L (3.5-5.1); Protein, Total 6.9 g/dL (6.4-8.2); Sodium Level 135 mmol/L (136-145)
[2020-05-04] MEDS: Morphine 2 MG/ML Syringe IV ×4 (07:38→18:46)
--- NOTE | 2020-05-04 09:55 | CASEMGMT ---
RN SERINA Face to Face with patient for initial transition planning/care coordination assessment. RN CM introduced self and role at [facility]. Patient lying in bed, alert and oriented. Patient willing to participate in assessment and is able to answer all questions appropriately. Care providers, pharmacy, and demographics verified. Patient wishes to discharge home, denies need for home health at this time. Patient states he has no further needs or concerns at this time. CM to follow for discharge planning needs that may arise. PCP: Kenna Specialists: none Preferred Pharmacy: [facility] Insurance: [facility] Community Plan Prescription Benefit: yes Living Will/HPOA: none LNOK: Significant other, son, daughter Living Arrangements: Patient lives alone in 1 story house with 2 steps to enter the home. Patient states he is independent at home. Transportation: self, significant other. DME/HHC: Patient denies DME or previous HHC. Disposition Plan: Patient to discharge home with family support and follow-up plans in place Gianna TOLBERT, RN, CM
[2020-05-04] MEDS: Famotidine 20 MG Tablet PO ×2 (10:09→21:43)
--- NOTE | 2020-05-04 14:34 | PN_ITS ---
Patient Problems: Active and Suspected Problems (Last Updated 06/02/19 @ 13:13 by Alejandrina Reyna) Facial cellulitis (Acute) Facial abscess (Suspected) Subjective: Patient states he feels his face is overall better. Is complaining of pain at a tooth site that he got pulled approximately a year ago at [facility]. No drai rika noted. Vitals/I&O's: Vital Signs Temp Pulse Resp BP Pulse Ox 98.1 F 66 18 159/72 H 96 05/04/20 11:59 05/04/20 11:59 05/04/20 11:59 05/04/20 11:59 05/04/20 11:59 Oxygen Delivery Method Room Air Weight: 66 kg Body Mass Index (BMI) 19.2 Intake and Output for Last 24 Hours 05/02/20 05/03/20 05/04/20 23:59 23:59 23:59 Intake Total 526 / 526 2095.2095. Balance 526 / 526 2095.2095. General: Alert, Oriented x3, Cooperative, No apparent distress, Well developed, Well nourished, - - Upper middle aged white male mildly disheveled, lying in bed, appears comfortable HEENT: PERRLA, EOMI, EAC Clear, - - Edema at left nasolabial fold just inferior to left orbit and down into the left lip that does not cross midline, no significant erythema noted at this time, area is mildly tender, no extension beyond the outline of erythema on admission Oral: Moist Mucosa Neck: Supple, Trachea Midline Lungs: Clear to auscultation, No rhonchi, No wheeze, No rales, Diminished Cardiovascular: Regular rate, Regular Rhythm, Normal S1, Normal S2, No murmurs, No Ectopic Activity, No rub noted, No Gallop Abdomen: Bowel Sounds Present, Soft, Non Tender, Non-Distended, No hernias noted Extremities: No clubbing, No cyanosis, No edema, Capillary Refill Less than 3 Seconds, Peripheral Pulses Normal Neurological: Cranial nerves II-XII grossly intact, Neuro grossly intact Psych/Mental Status: Normal Affect, Appropriate Laboratory Results 05/03/20 14:35: WBC 14.2 H, RBC 4.98, Hgb 16.3, Hct 48.9, MCV 98.2 H, MCH 32.7 H , MCHC 33.3, RDW Std Deviation 45.9 H, RDW Coeff of Duncan 12.6, Plt Count 134 L, MPV 11.0, Immature Gran % (Auto) 0.400, Neut % (Auto) 76.1 H, Lymph % (Auto) 15.3 L, Phelps % (Auto) 8.0, Eos % (Auto) 0.1, Baso % (Auto) 0.1, Absolute Neuts (auto) 10.8 H, Absolute Lymphs (auto) 2.17, Nucleated RBC % 0 05/03/20 14:35: Sodium 137, Potassium 4.6, Chloride 103, Carbon Dioxide 30.0, Anion Gap 4 L, BUN 14, Creatinine 1.17, Estim Creat Clear Calc 65.93, Est GFR (MDRD) Af Amer 82, Est GFR (MDRD) Non-Af 67, BUN/Creatinine Ratio 12.0, Glucose 96, Calcium 9.5 05/04/20 06:05: WBC 10.6, RBC 4.56 L, Hgb 14.9, Hct 44.3, MCV 97.1 H, MCH 32.7 H , MCHC 33.6, RDW Std Deviation 45.4 H, RDW Coeff of Duncan 12.7, Plt Count 135 L, MPV 11.6, Immature Gran % (Auto) 0.400, Neut % (Auto) 69.4, Lymph % (Auto) 21.4, Phelps % (Auto) 8.1, Eos % (Auto) 0.4, Baso % (Auto) 0.3, Absolute Neuts (auto) 7.4, Absolute Lymphs (auto) 2.27, Nucleated RBC % 0 05/04/20 06:05: Sodium 135 L, Potassium 4.5, Chloride 105, Carbon Dioxide 26.0, Anion Gap 4 L, BUN 21 H, Creatinine 1.05, Estim Creat Clear Calc 69.01, Est GFR (MDRD) Af Amer 92, Est GFR (MDRD) Non-Af 76, BUN/Creatinine Ratio 20.0, Glucose 97, Calcium 8.7, Total Bilirubin 0.60, AST 20, ALT 26, Alkaline Phosphatase 81, Total Protein 6.9, Albumin 3.3, Globulin 3.6, Albumin/Globulin Ratio 0.9 05/04/20 10:54: MRSA (PCR) Pending Current Medications Acetaminophen (Acetaminophen 325 Mg Tablet) 650 mg PO Q6H PRN PRN PRN Reason: Pain Score 1-10/Temp > 100.7 F Last Admin: 05/04/20 00:29 Dose: 650 mg Documented by: Al Hydroxide/Mg Hydroxide (Mag Hydrox/Al Hydrox/Simeth 30 Ml Udc) 30 ml PO Q6H PRN PRN PRN Reason: Gastric Burning Albuterol Sulfate (Albuterol 2.5 Mg/3 Ml Vial.Neb.) 2.5 mg INHALATION Q2H PRN PRN PRN Reason: Dyspnea, wheezing Famotidine (Famotidine 20 Mg Tablet) 20 mg PO BID [facility] Last Admin: 05/04/20 10:09 Dose: 20 mg Documented by: Guaifenesin (Guaifenesin 10 Ml Udc (200mg/10ml)) 20 ml PO Q4H PRN PRN PRN Reason: COUGH Hydralazine HCl (Hydralazine 20 Mg/Ml Vial) 10 mg IV Q4H PRN PRN PRN Reason: SBP > 160 Last Admin: 05/04/20 04:10 Dose: 10 mg Documented by: Sodium Chloride () 1,000 mls @ 100 mls/hr IV .Q10H [facility] Last Infusion: 05/04/20 13:34 Dose: 100 mls/hr Documented by: Ampicillin Sodium/Sulbactam (Sodium 3 gm/ Sodium Chloride) 112 mls @ 150 mls/hr IV Q6 [facility] Last Infusion: 05/04/20 13:34 Dose: Infused Documented by: Magnesium Hydroxide (Magnesium Hydroxide 30 Ml Udc) 30 ml PO DAILY PRN PRN PRN Reason: Constipation Melatonin (Melatonin 3 Mg Tablet) 3 mg PO QHS PRN PRN PRN Reason: INSOMNIA Last Admin: 05/03/20 22:00 Dose: 3 mg Documented by: Morphine Sulfate (Morphine 2 Mg/Ml Syringe) 2 mg IV Q3H PRN PRN PRN Reason: Pain Score 6-10 Last Admin: 05/04/20 12:00 Dose: 2 mg Documented by: Nicotine (Nicotine 14 Mg Patch) 14 mg TD DAILY [facility] Last Admin: 05/04/20 10:09 Dose: 14 mg Documented by: Nutritional Formula (Lactose Free) (Ensure Enlive 120 Ml Liquid) 120 ml PO 4X/DAY [facility] Last Admin: 05/04/20 13:34 Dose: Not Given Documented by: Ondansetron HCl (Ondansetron 4 Mg/2 Ml Vial) 4 mg IV Q8H PRN PRN PRN Reason: NAUSEA/VOMITING Last Admin: 05/03/20 17:35 Dose: 4 mg Documented by: Oxycodone HCl (Oxycodone 5 Mg Tablet) 5 mg PO Q4H PRN PRN PRN Reason: Pain Score 4-5 Last Admin: 05/04/20 00:28 Dose: 5 mg Documented by: Prochlorperazine Edisylate (Prochlorperazine 10 Mg/2 Ml Vial) 5 mg IV Q4H PRN PRN PRN Reason: Breakthrough nausea/vomiting Psyllium Hydrophilic Mucilloid (Psyllium 1 Packet) 1 packet PO DAILY PRN PRN PRN Reason: Constipation Senna/Docusate Sodium (Senna/Docusate Sodium 1 Tablet) 2 tablet PO BID PRN PRN PRN Reason: Constipation Sodium Chloride (0.9% Saline Lock 10 Ml Syringe) 10 - 40 ml IV UD PRN PRN Reason: SALINE FLUSH Last Admin: 05/04/20 04:11 Dose: 10 ml Documented by: Sodium Chloride (0.9% Saline Lock 10 Ml Syringe) 10 - 40 ml IV UD PRN PRN Reason: SALINE FLUSH Throat Lozenges (Benzocaine/Menthol 1 Lozenge) 1 lozenge MUCOUS MEM Q2H PRN PRN PRN Reason: SORE THROAT STROKE Vital Signs/Narrative: Vital Signs Temp Pulse Resp BP Pulse Ox 05/04/20 11:59 98.1 F 66 18 159/72 H 96 Medical Necessity - Tobacco Use Smoking Status: Current every day smoker Tobacco Use: Cigarettes Assessment/Plan All Active Problems (Last Updated 06/02/19 @ 13:13 by Alejandrina Reyna) Facial cellulitis (Acute) Acute hepatitis (Acute) Elevated liver enzymes (Acute) Left-sided facial cellulitis with abscess -Currently on Unasyn -MRSA PCR pending--> if positive will initiate vancomycin versus linezolid -ENT consultation for possible I&D although abscess is small at this time on the CT scan(1 x 0.6 cm extending from base of nose to the left) -Per discussion with patient he feels that the swelling has gone down some since initiation of antibiotics but is complaining of pain -Leukocytosis have has improved Mild hyponatremia -We will repeat BMP in a.m. -No intervention needed at this time Hypertension -BP remains markedly elevated -Start Norvasc 10 mg -Monitor blood pressure Tobacco abuse -Encouraged cessation -Nicotine patch if desired DVT prophylaxis -Low risk -Early ambulation CODE STATUS -Full code Inpatient E&M: 45766 Subs Hosp L2
[2020-05-04 16:47] LABS: M R Staph aureus DNA By PCR POSITIVE (Negative); Probe Check PASS
[2020-05-04 17:11] LABS: International Normalized Ratio 1.1; Prothrombin Time (Protime)PT. 13.2 SECONDS (11.7-14.9)
[2020-05-04 17:12] LABS: Partial Thromboplast Time 27.8 Seconds (24.1-36.2)
[2020-05-04] MEDS: Tetracaine/Benzocaine/Butamben TOPICAL (17:13)
--- NOTE | 2020-05-04 17:22 | PCM.PN.BLA ---
Progress Note Asked to see the patient at the request of Dr. Capone for facial cellulitis History of present illness the patient is a 60-year-old white male who 3 days ago noticed some swelling of his face. The pain and swelling became progressively worse and his lip became more swollen. He presented to the emergency room. He was admitted to the floor for facial cellulitis. CT scan revealed a developing abscess that is 1 x .6 cm. He has now had a positive MRSA swab. Past Medical History Past Medical History (Chronic Problems): Chronic Problems (Last Updated 06/02/19 @ 13:13 by Alejandrina Reyna) Hypertension (Chronic) Tobacco use (Chronic) Cluster headache (Chronic) Medical History: Medical History (Last Updated 06/02/19 @ 13:13 by Alejandrina Reyna) left arm surgery HTN (hypertension) I10 Allergies No Known Allergies Allergy (Verified 05/03/20 13:13) Home Medications: Ambulatory Orders Medication Instructions Recorded NK 05/03/20 Surgical History: Surgical History (This Medical Record has been edited. Action required.) History of hemorrhoidectomy Z98.890 Surgical History: no surgical history Psychiatric History: No pertinent psych hx Lives: Alone Smoking Status: Current every day smoker - Patient with ongoing 1/2 pack/day to 1 pack/day cigarette tobacco usage since youth. Tobacco Use: Cigarettes Alcohol: None Drugs: Marijuana - *Family History Maternal Family History: Family History Mother Skin cancer Review of Systems Constitutional: Reports: Chills, Malaise, Weakness, Fatigue. Denies: Anorexia, Fever, Weight Change HEENT: Reports: - - Facial edema, redness, pain, recent L nare sore.. Denies: Head Aches, Sinus Congestion, Sinus Drainage Cardiovascular: Denies: Chest Pain, Palpitations Respiratory: Reports: Cough. Denies: Shortness of breath at rest, Sputum production Gastrointestinal: Denies: Abdominal Pain, Nausea, Vomiting Genitourinary: Denies: Dysuria Musculoskeletal: Denies: Joint Pain, Joint Tenderness Skin: Denies: Rash, Wounds Neurological: Denies: Numbness, Tingling, Focal weakness Psychiatric: Denies: Anxiety, Depression, Homicidal Ideations, Suicidal Ideations Hematologic/ Lymphatic: Denies: Easy Bruising, Easy Bleeding Physical exam: Patient is awake alert no acute distress. Scalp and skull are normal Nasal exam reveals deviation of the septum to the left. There is a scab in the left nasal vestibule at 6 O clock Mouth and oropharynx reveal and a dentulous maxilla. There is some fullness that measures 1.5 x 1.5 cm in the gingivolabial sulcus just the left of midline. I anesthetized the mucosa with Cetacaine spray. I then placed a 16-gauge needle into the full area corresponding with the CT abnormality. Aspiration of this area did NOT reveal any purulence. Face-the marker drawing on the face does not really have any erythema however he does have significant edema of the upper lip. Assessment: facial cellulitis secondary to a nasal vestibulitis Plan: continue IV antibiotics to cover for MRSA. I have placed him on Bactroban topically in the left nasal vestibule. He may eat as there is no indication for incision and drainage in the OR.
--- NOTE | 2020-05-04 17:52 | NURSING ---
GAUZE IN MOUTH CHANGED FOR THE SECOND TIME, BLEEDING HAS SLOWED.
[2020-05-04] MEDS: Vancomycin IV 1,000 MG/200 ML BAG 200 MG IV (18:47)
--- NOTE | 2020-05-04 19:28 | PCM.RX.CS ---
Consult Pharmacy has been consulted to manage selected antiobiotic: Vancomycin Type of Consult: New start Suspected Infection: Skin/Soft tissue Labs: Sodium 135 mmol/L (136-145) L 05/04/20 06:05 Potassium 4.5 mmol/L (3.5-5.1) 05/04/20 06:05 Chloride 105 mmol/L (98-107) 05/04/20 06:05 Carbon Dioxide 26.0 mmol/L (21.0-32.0) 05/04/20 06:05 Anion Gap 4 (5-15) L 05/04/20 06:05 BUN 21 mg/dL (7-18) H 05/04/20 06:05 Creatinine 1.05 mg/dL (0.70-1.30) 05/04/20 06:05 Est GFR (MDRD) Af Amer 92 mL/min (>60) 05/04/20 06:05 Est GFR (MDRD) Non-Af 76 mL/min (>60) 05/04/20 06:05 BUN/Creatinine Ratio 20.0 RATIO (10-20) 05/04/20 06:05 Glucose 97 mg/dL (74-106) 05/04/20 06:05 Goal Trough: 15-20 mcg/mL Pharmacy Plan for Drug Dosing: NEW START IV VANCOMYCIN Consulting Physician: Dr. Ramón Paige Indication: Facial Cellulitis Goal Trough: 15-20 SrCr: 1.05 CrCl: 69 mL/min Comments: 1000mg x1 initial dose ordered and administered05/04/20 @5658 Vancomcyin Dose: 750mg IV Q12hr to start 05/05/20 @0700 Pending Level: 05/06/20 @0630 (prior to 4th total dose per protocol Pharmacy Service will continue to monitor and adjust dosing as required.
[2020-05-04] MEDS: Mupirocin Ointment 22gm Tube 1 APPLIC TOPICAL (21:49)
[2020-05-05] VITALS (7 sets, daily range): BP systolic 150–169; BP diastolic 82–93; PULSE 60–73; RESP 16; TEMP 36.8–37.3; O2SAT 95–96
[2020-05-05] MEDS: Morphine 2 MG/ML Syringe IV (01:08)
[2020-05-05] MEDS: 0.9% Normal Saline 1,000 ML 100 ML IV ×2 (03:03→15:29)
[2020-05-05] MEDS: Mupirocin Ointment 22gm Tube 1 APPLIC TOPICAL ×3 (06:12→22:26)
[2020-05-05] MEDS: oxyCODONE 5 MG Tablet PO ×2 (06:31→19:44)
[2020-05-05 06:40] LABS: Absolute Neutrophil Count 6.4 X10^3/uL (2.0-7.7); Basophil# 0.03 X10^3/uL; Basophil% 0.3 % (0-1); Eosinophil# 0.03 X10^3/uL; Eosinophils% 0.3 % (0-5); Hematocrit 42.5 % (40-54); Hemoglobin 14.6 g/dL (13.0-16.5); Lymphocyte % 23.3 % (19-41); Mean Corp Hgb Conc 34.4 g/dL (32-36); Mean Corpuscular Hgb 33.3 pg (27.0-32.0); Mean Corpuscular Volume 96.8 fL (80-94); Mean Platelet Vol. 10.7 fl (6.2-12.0); Monocyte# 0.77 X10^3/uL; Monocyte% 8.2 % (0-10); NRBC Flagged by Analyzer 0 % (0-5); Neutrophil # 6.38 X10^3/uL (2.7-7.7); Neutrophil % 67.6 % (47-70); Platelet Count 129 K/mm3 (150-450); RBC Distribution Width CV 12.6 % (11.6-14.6); RBC Distribution Width SD 45.1 fl (35.1-43.9); Red Blood Count 4.39 M/mm3 (4.6-6.2); White Blood Count 9.4 K/mm3 (4.4-11.0)
[2020-05-05 07:12] LABS: Anion Gap 6 (5-15); BUN 18 mg/dL (7-18); BUN/Creat Ratio 18.3 RATIO (10-20); Calcium,Total 8.7 mg/dL (8.5-10.1); Chloride 108 mmol/L (98-107); Creatinine, Serum 0.99 mg/dL (0.70-1.30); EST Glomerular Filtration Rate 82 mL/min (>60); Est Glom Filt Rate - Afr Amer 99 mL/min (>60); Estimated Creatinine Clearance 73.15 ml/min; Glucose 100 mg/dL (74-106); Potassium 3.9 mmol/L (3.5-5.1); Sodium Level 138 mmol/L (136-145)
[2020-05-05] MEDS: Famotidine 20 MG Tablet PO ×2 (09:39→22:25)
[2020-05-05] MEDS: amLODIPine 10 MG Tablet PO (09:39)
--- NOTE | 2020-05-05 13:19 | PCM.PN.HOSP ---
Patient Problems: Active and Suspected Problems (Last Updated 06/02/19 @ 13:13 by Alejandrina Reyna) Facial cellulitis (Acute) Facial abscess (Suspected) Subjective: Patient is still complaining of pain on the left side of his face. There is still considerable edema and tenderness, although no noted external erythema other than in the lip region is present. He asks if he is able to go home yet today. Vitals/I&O's: Vital Signs Temp Pulse Resp BP Pulse Ox 98.5 F 62 16 169/93 H 95 05/05/20 08:40 05/05/20 08:40 05/05/20 08:40 05/05/20 08:40 05/05/20 08:40 Oxygen Delivery Method Room Air Weight: 66 kg Body Mass Index (BMI) 19.2 Intake and Output for Last 24 Hours 05/03/20 05/04/20 05/05/20 23:59 23:59 23:59 Intake Total 526 / 526 2857.67 / 2857.67 2308.33 / 2308.33 Balance 526 / 526 2857.67 / 2857.67 2308.33 / 2308.33 General: Alert, Oriented x3, Cooperative, No apparent distress, Well developed, Well nourished, - - Middle-aged white male lying in bed, appears comfortable HEENT: Atraumatic, Normocephalic, - - Still with edema on the left side of his face from nasolabial fold to the inferior left orbit and into the left upper lip, the area is exquisitely tender especially in the left upper lip Oral: Moist Mucosa Neck: Supple, Trachea Midline Lungs: No rhonchi, No wheeze, No rales, Diminished Cardiovascular: Regular rate, Regular Rhythm, Normal S1, Normal S2, No murmurs, No Ectopic Activity, No rub noted, No Gallop Abdomen: Bowel Sounds Present, Soft, Non Tender, Non-Distended, No hernias noted Extremities: No clubbing, No cyanosis, No edema, Capillary Refill Less than 3 Seconds, Peripheral Pulses Normal Psych/Mental Status: Normal Affect, Appropriate Laboratory Results 05/04/20 10:54: MRSA (PCR) POSITIVE H 05/04/20 16:44: PT 13.2, INR 1.1, APTT 27.8 05/05/20 06:25: WBC 9.4, RBC 4.39 L, Hgb 14.6, Hct 42.5, MCV 96.8 H, MCH 33.3 H, MCHC 34.4, RDW Std Deviation 45.1 H, RDW Coeff of Duncan 12.6, Plt Count 129 L, MPV 10.7, Immature Gran % (Auto) 0.300, Neut % (Auto) 67.6, Lymph % (Auto) 23.3, [place] % (Auto) 8.2, Eos % (Auto) 0.3, Baso % (Auto) 0.3, Absolute Neuts (auto) 6.4, Absolute Lymphs (auto) 2.20, Nucleated RBC % 0 05/05/20 06:25: Sodium 138, Potassium 3.9, Chloride 108 H, Carbon Dioxide 24.0, Anion Gap 6, BUN 18, Creatinine 0.99, Estim Creat Clear Calc 73.15, Est GFR (MDRD) Af Amer 99, Est GFR (MDRD) Non-Af 82, BUN/Creatinine Ratio 18.3, Glucose 100, Calcium 8.7 Current Medications Acetaminophen (Acetaminophen 325 Mg Tablet) 650 mg PO Q6H PRN PRN PRN Reason: Pain Score 1-10/Temp > 100.7 F Last Admin: 05/04/20 18:52 Dose: 650 mg Documented by: Al Hydroxide/Mg Hydroxide (Mag Hydrox/Al Hydrox/Simeth 30 Ml Udc) 30 ml PO Q6H PRN PRN PRN Reason: Gastric Burning Albuterol Sulfate (Albuterol 2.5 Mg/3 Ml Vial.Neb.) 2.5 mg INHALATION Q2H PRN PRN PRN Reason: Dyspnea, wheezing Amlodipine Besylate (Amlodipine 10 Mg Tablet) 10 mg PO DAILY [facility] Last Admin: 05/05/20 09:39 Dose: 10 mg Documented by: Famotidine (Famotidine 20 Mg Tablet) 20 mg PO BID [facility] Last Admin: 05/05/20 09:39 Dose: 20 mg Documented by: Guaifenesin (Guaifenesin 10 Ml Udc (200mg/10ml)) 20 ml PO Q4H PRN PRN PRN Reason: COUGH Hydralazine HCl (Hydralazine 20 Mg/Ml Vial) 10 mg IV Q4H PRN PRN PRN Reason: SBP > 160 Last Admin: 05/04/20 21:46 Dose: 10 mg Documented by: Sodium Chloride () 1,000 mls @ 100 mls/hr IV .Q10H [facility] Last Infusion: 05/05/20 07:33 Dose: 100 mls/hr Documented by: Vancomycin IV Pharmacy to Dose (1 ea/ Sodium Chloride) 500 mls @ 250 mls/hr IV PRN PRN; Protocol PRN Reason: Rx to Dose Piperacillin Sod/Tazobactam (Sod 3.375 gm/ Sodium Chloride) 50 mls @ 12.5 mls/hr IV Q8 [facility] Last Infusion: 05/05/20 10:11 Dose: Infused Documented by: Vancomycin HCl 750 mg/ Sodium (Chloride) 265 mls @ 250 mls/hr IV Q12H [facility] Last Infusion: 05/05/20 07:33 Dose: Infused Documented by: Magnesium Hydroxide (Magnesium Hydroxide 30 Ml Udc) 30 ml PO DAILY PRN PRN PRN Reason: Constipation Melatonin (Melatonin 3 Mg Tablet) 3 mg PO QHS PRN PRN PRN Reason: INSOMNIA Last Admin: 05/03/20 22:00 Dose: 3 mg Documented by: Morphine Sulfate (Morphine 2 Mg/Ml Syringe) 2 mg IV Q3H PRN PRN PRN Reason: Pain Score 6-10 Last Admin: 05/05/20 01:08 Dose: 2 mg Documented by: Mupirocin (Mupirocin Ointment 22gm Tube) 1 applic TOPICAL TID [facility]; Protocol Last Admin: 05/05/20 06:12 Dose: 1 applicatio Documented by: Nicotine (Nicotine 14 Mg Patch) 14 mg TD DAILY [facility] Last Admin: 05/05/20 09:39 Dose: 14 mg Documented by: Nutritional Formula (Lactose Free) (Ensure Enlive 120 Ml Liquid) 120 ml PO 4X/DAY [facility] Last Admin: 05/05/20 09:40 Dose: Not Given Documented by: Ondansetron HCl (Ondansetron 4 Mg/2 Ml Vial) 4 mg IV Q8H PRN PRN PRN Reason: NAUSEA/VOMITING Last Admin: 05/03/20 17:35 Dose: 4 mg Documented by: Oxycodone HCl (Oxycodone 5 Mg Tablet) 5 mg PO Q4H PRN PRN PRN Reason: Pain Score 4-5 Last Admin: 05/05/20 06:31 Dose: 5 mg Documented by: Prochlorperazine Edisylate (Prochlorperazine 10 Mg/2 Ml Vial) 5 mg IV Q4H PRN PRN PRN Reason: Breakthrough nausea/vomiting Psyllium Hydrophilic Mucilloid (Psyllium 1 Packet) 1 packet PO DAILY PRN PRN PRN Reason: Constipation Senna/Docusate Sodium (Senna/Docusate Sodium 1 Tablet) 2 tablet PO BID PRN PRN PRN Reason: Constipation Sodium Chloride (0.9% Saline Lock 10 Ml Syringe) 10 - 40 ml IV UD PRN PRN Reason: SALINE FLUSH Last Admin: 05/04/20 18:47 Dose: 10 ml Documented by: Sodium Chloride (0.9% Saline Lock 10 Ml Syringe) 10 - 40 ml IV UD PRN PRN Reason: SALINE FLUSH Throat Lozenges (Benzocaine/Menthol 1 Lozenge) 1 lozenge MUCOUS MEM Q2H PRN PRN PRN Reason: SORE THROAT Medical Necessity - Tobacco Use Smoking Status: Current every day smoker Tobacco Use: Cigarettes Assessment/Plan All Active Problems (Last Updated 06/02/19 @ 13:13 by Alejandrina Reyna) Facial cellulitis (Acute) Acute hepatitis (Acute) Elevated liver enzymes (Acute) Left-sided facial cellulitis with abscess -MRSA PCR positive -Continue vancomycin this was initiated last evening -Upon discharge will need Bactrim DS 2 tablets twice daily or linezolid for completion of treatment -ENT is following -Needle aspiration of abscess site attempted yesterday with no purulence aspirated -No need for OR at this time -Intranasal Bactroban added Mild hyponatremia -Resolved Hypertension -BP remains markedly elevated spite addition of Norvasc yesterday -Start hydrochlorothiazide 25 mg daily today -Sinew Norvasc 10 mg -Monitor blood pressure Tobacco abuse -Encouraged cessation -Nicotine patch if desired DVT prophylaxis -Low risk -Early ambulation CODE STATUS -Full code Inpatient E&M: 32151 Subs Hosp L2
--- NOTE | 2020-05-05 14:38 | EKG12_ITS ---
Test Reason : CP Blood Pressure : / mmHG Vent. Rate : 064 BPM Atrial Rate : 064 BPM P-R Int : 106 ms QRS Dur : 142 ms QT Int : 442 ms P-R-T Axes : 051 092 036 degrees QTc Int : 455 ms Sinus rhythm with sinus arrhythmia with short HI Right bundle branch block Abnormal ECG When compared with ECG of 13-MAY-2019 21:37, No significant change was found Confirmed by ANTHONY TINEO, GABBY ([id number]), research editor CARLI DEL RIO ([id number]) on 05/09/2020 11:14:00 AM Referred By: NANCY Confirmed By:LATASHA CRUZ MD
--- NOTE | 2020-05-05 17:26 | PCM.PN.BLA ---
Progress Note Pt. feels that he is getting better. He reports less swelling and less pain although it is still painful AVSS Lip- continued induration and swelling of the upper lip although improved. Less tender. A: facial cellulitis improving P: continue abx. D/c on bactrim. Call if questions or concerns. STROKE Vital Signs/Narrative: Vital Signs Temp Pulse Resp BP Pulse Ox 05/05/20 14:40 98.2 F 60 16 150/83 H 96
[2020-05-06] MEDS: 0.9% Normal Saline 1,000 ML 100 ML IV (02:52)
[2020-05-06 03:00] VITALS: BP 159/74; PULSE 62; RESP 16; TEMP 36.9; O2SAT 98
[2020-05-06 03:59] VITALS: PULSE 72
[2020-05-06] MEDS: Mupirocin Ointment 22gm Tube 1 APPLIC TOPICAL (06:25)
[2020-05-06 06:42] LABS: Absolute Lymphocyte Count 2.02 X10^3/uL (0.83-4.51); Absolute Neutrophil Count 3.4 X10^3/uL (2.0-7.7); Basophil# 0.03 X10^3/uL; Basophil% 0.5 % (0-1); Eosinophil# 0.07 X10^3/uL; Eosinophils% 1.1 % (0-5); Hematocrit 40.3 % (40-54); Hemoglobin 13.3 g/dL (13.0-16.5); Lymphocyte # 2.02 X10^3/ul (4.0); Lymphocyte % 32.8 % (19-41); Mean Corpuscular Hgb 32.2 pg (27.0-32.0); Mean Corpuscular Volume 97.6 fL (80-94); Mean Platelet Vol. 10.4 fl (6.2-12.0); Monocyte# 0.57 X10^3/uL; Monocyte% 9.3 % (0-10); NRBC Flagged by Analyzer 0 % (0-5); Neutrophil # 3.44 X10^3/uL (2.7-7.7); Platelet Count 134 K/mm3 (150-450); RBC Distribution Width CV 12.5 % (11.6-14.6); RBC Distribution Width SD 45.5 fl (35.1-43.9); Red Blood Count 4.13 M/mm3 (4.6-6.2); White Blood Count 6.2 K/mm3 (4.4-11.0)
[2020-05-06 07:09] LABS: Anion Gap 3 (5-15); BUN 18 mg/dL (7-18); BUN/Creat Ratio 18.3 RATIO (10-20); Calcium,Total 8.2 mg/dL (8.5-10.1); Chloride 107 mmol/L (98-107); Creatinine, Serum 0.98 mg/dL (0.70-1.30); EST Glomerular Filtration Rate 82 mL/min (>60); Est Glom Filt Rate - Afr Amer 100 mL/min (>60); Estimated Creatinine Clearance 73.89 ml/min; Glucose 84 mg/dL (74-106); Potassium 3.7 mmol/L (3.5-5.1); Sodium Level 136 mmol/L (136-145)
[2020-05-06] MEDS: amLODIPine 10 MG Tablet PO (08:25)
[2020-05-06] MEDS: Famotidine 20 MG Tablet PO (08:26)
[2020-05-06] MEDS: hydroCHLOROthiazide 25 MG Tablet PO (08:26)
[2020-05-06 08:30] VITALS: BP 158/75; PULSE 55; RESP 16; TEMP 36.6; O2SAT 96
--- NOTE | 2020-05-06 08:55 | PCM.RX.CS ---
Consult Pharmacy has been consulted to manage selected antiobiotic: Vancomycin Type of Consult: Follow-up Suspected Infection: Skin/Soft tissue Labs: Sodium 136 mmol/L (136-145) 05/06/20 06:32 Potassium 3.7 mmol/L (3.5-5.1) 05/06/20 06:32 Chloride 107 mmol/L (98-107) 05/06/20 06:32 Carbon Dioxide 26.0 mmol/L (21.0-32.0) 05/06/20 06:32 Anion Gap 3 (5-15) L 05/06/20 06:32 BUN 18 mg/dL (7-18) 05/06/20 06:32 Creatinine 0.98 mg/dL (0.70-1.30) 05/06/20 06:32 Est GFR (MDRD) Af Amer 100 mL/min (>60) 05/06/20 06:32 Est GFR (MDRD) Non-Af 82 mL/min (>60) 05/06/20 06:32 BUN/Creatinine Ratio 18.3 RATIO (10-20) 05/06/20 06:32 Glucose 84 mg/dL (74-106) 05/06/20 06:32 Vancomycin Trough 9.0 ug/mL (5.0-15.0) 05/06/20 06:32 Goal Trough: 15-20 mcg/mL Pharmacy Plan for Drug Dosing: VANCOMYCIN LEVEL RECEIVED Current Vancomycin Dose: 750mg q12h (,) Number of Doses Received: 1000mg x1, 750mg x2 Vancomycin Level: 9.0 Hours Since Last Dose: 12 Renal Function: SrCr 0.98 Renal Function Trend: stable Lab/Micro: Vancomycin Plan/Comments: recommend increasing dose to 1250mg q12h Pending Level: @ 0630 Pharmacy Service will continue to monitor and adjust dosing as required. Follow-Up Labs: Trough Vancomycin - 05/08/20 @ 0608
[2020-05-06 10:00] VITALS: PULSE 65
--- NOTE | 2020-05-06 10:38 | PCM.DC ---
- Discharge Diagnoses Current Active Problems: Current Active and Chronic Problems Facial cellulitis (Acute) Hypertension (Chronic) Tobacco use (Chronic) You will use the following diet at home:: No restrictions Your food should be the consistency of: Regular Your liquids should be the consistency of: Regular/Thin Discharge Activity: Return to Normal Activity Allergies/Adverse Reactions: Allergies No Known Allergies Allergy (Verified 05/03/20 13:13) Medications to take at Discharge Amlodipine [Norvasc] 10 mg PO DAILY #30 tab 05/06/20 Doxycycline 100 mg PO BID #20 cap 05/06/20 Hydrochlorothiazide [Hctz] 25 mg PO DAILY #30 tab 05/06/20 Mupirocin [Bactroban] 1 applic TOPICAL TID tube 05/06/20 The following prescriptions were given: Doxycycline 100 mg PO BID #20 cap Transmission Status: Pending to [facility] Hydrochlorothiazide [Hctz] 25 mg PO DAILY #30 tab Transmission Status: Pending to [facility] Amlodipine [Norvasc] 10 mg PO DAILY #30 tab Transmission Status: Pending to [facility] Primary Care Physician: Adolfo Pierson MD [Primary Care Provider] - Please follow up with your Primary Care Physician in: next week Test Results: Test results from this visit will be discussed in further detail at your follow-up appointment, if applicable.
--- NOTE | 2020-05-06 12:12 | PHA.DC.MC ---
Pharmacy Service has performed discharge medication reconciliation and counseling for this patient. 1. AMLODIPINE 10MG PO DAILY 2. DOXYCYCLINE 100MG PO BID X 10 DAYS 3. HYDROCHLOROTHIAZIDE 25MG PO DAILY 4. MUPIROCIN 1 APPLICATION TOPICALLY TID The patient's discharge medication list was reviewed for discrepancies and discrepancies were resolved. Home Medications Amlodipine [Norvasc] 10 mg PO DAILY #30 tab 05/06/20 Doxycycline 100 mg PO BID #20 cap 05/06/20 Hydrochlorothiazide [Hctz] 25 mg PO DAILY #30 tab 05/06/20 Mupirocin [Bactroban] 1 applic TOPICAL TID tube 05/06/20 The patient was counseled on the following discharge medications and changes in medications for homegoing were reviewed. The Reason for Use, instructions for use, and potential side effects were reviewed for all new medications. The patient's questions regarding all of their medications were answered. The patient was able to verbally demonstrate an understanding of their discharge medications. Patient counseled by pharmacy graduate intern
--- NOTE | 2020-05-07 19:02 | PCM.DC.SUM ---
Discharge Date and Diagnosis - Problem List Patient Problems: Active and Suspected Problems (Last Updated 06/02/19 @ 13:13 by Alejandrina Reyna) Facial cellulitis (Acute) Facial abscess (Suspected) Date of Admission: 05/03/20 Date of Discharge: 05/06/20 - Primary Discharge Diagnosis Acute Problems: Active Problems (Last Updated 06/02/19 @ 13:13 by Alejandrina Reyna) #1 facial cellulitis from presumed MRSA #2 essential hypertension #3 noncompliance with medical regimen #4 nasal vestibulitis secondary to presumed MRSA Suspected Problems: Suspected Problems (Last Updated 06/02/19 @ 13:13 by Alejandrina Reyna) Facial abscess (Suspected) - Secondary Discharge Diagnosis Chronic Problems: Chronic Problems (Last Updated 06/02/19 @ 13:13 by Alejandrina Reyna) Hypertension (Chronic) Tobacco use (Chronic) Cluster headache (Chronic) Hospital Course and Treatment Operations: None Procedures: None Summary of Care Provided: The patient is a 60 year old M was seen in the emergency room at [facility] with a chief complaint of facial swelling and pain x24 hours. He complained of tenderness to his left upper lip. Patient was noncompliant with taking his medications for blood pressure-he ran out days ago. Lab was obtained which showed an elevated white blood cell count, CT of the face was obtained which showed diffuse soft tissue labral swelling and an area of decreased attenuation which was read out as a possible abscess. Patient was given IV antibiotics and he was admitted to [place] [id number]. Patient was placed on medications for blood pressure and seen in consultation by ENT. Patient had a MRSA swab of the nose which was positive, antibiotics were given based on probable MRSA cellulitis. Patient improved during his hospital stay. On 05/06/2020, patient was seen and examined: On examination he appeared in good health and spirits. Vital signs as documented. Skin warm and dry and without overt rashes. Neck without JVD, neck was supple, trachea midline, thyroid was normal. There was noted to be diffuse swelling of the patient's upper lip more so in the left. There was also redness of this area noted. Lungs clear bilaterally, normal air movement was noted. Heart exam notable for regular rhythm, normal sounds and absence of murmurs, rubs or gallops. Abdomen unremarkable and without evidence of organomegaly, masses, or abdominal aortic enlargement. Bowel sounds are present, abdomen is not distended. Extremities nonedematous, no cyanosis was noted, no clubbing was noted. Neuro: Cranial nerves II through XII are grossly intact, no focal motor deficits were noted, sensation to light touch and pinprick intact, motor exam 5/5 throughout. Psych: Patient is alert and oriented x3, he does not appear anxious or depressed, he does not appear agitated. Patient was discharged home in stable condition on 05/06/2020. Patient Problems: Active and Suspected Problems (Last Updated 06/02/19 @ 13:13 by Alejandrina Reyna) Facial cellulitis (Acute) Facial abscess (Suspected) - Physical Exam Vitals/I&O's: Vital Signs Temp Pulse Resp BP Pulse Ox 97.9 F 65 16 158/75 H 96 05/06/20 08:30 05/06/20 10:00 05/06/20 08:30 05/06/20 08:30 05/06/20 08:30 Oxygen Delivery Method Room Air Weight: 66 kg Body Mass Index (BMI) 19.2 Intake and Output for Last 24 Hours 05/05/20 05/06/20 05/07/20 23:59 23:59 23:59 Intake Total 4160.00 / 4160.00 2334.79 / 2334.79 Balance 4160.00 / 4160.00 2334.79 / 2334.79 Discharge Activity: Return to Normal Activity Home Medications: Medications to take at Discharge Amlodipine [Norvasc] 10 mg PO DAILY #30 tab 05/06/20 Doxycycline 100 mg PO BID #20 cap 05/06/20 Hydrochlorothiazide [Hctz] 25 mg PO DAILY #30 tab 05/06/20 Mupirocin [Bactroban] 1 applic TOPICAL TID tube 05/06/20 Following Prescriptions Were Given to Patient: Doxycycline 100 mg PO BID #20 cap [facility] Hydrochlorothiazide [Hctz] 25 mg PO DAILY #30 tab Transmission Status: [facility] Amlodipine [Norvasc] 10 mg PO DAILY #30 tab Transmission Status: [facility] Primary Care Physician: Adolfo Pierson MD [Primary Care Provider] - Please follow up with your Primary Care Physician in: next week Disposition: Home Minutes spent on discharge:: 31 Patient Condition:: Stable Medical Necessity - Tobacco Use Smoking Status: Current every day smoker Tobacco Use: Cigarettes Meaningful Use Info Meaningful Use Diagnoses (Choose all that apply): None applicable Inpatient E&M: 16012 Disch Hosp
== END 2020-05-06 12:08 | disposition home or self-care (01) | DRG 383 ==
LOC: ED 15:59 → MS3 17:36
PROVIDERS: Internal Medicine; Admitting Provider Family Medicine; Emergency Provider Emergency Medicine; PCP Family Medicine; Visit Provider Internal Medicine
DX: L02.01 Cutaneous abscess of face (principal); L03.211 Cellulitis of face; J34.2 Deviated nasal septum; I10 Essential (primary) hypertension; J34.89 Other specified disorders of nose and nasal sinuses; G44.009 Cluster headache syndrome, unspecified, not intractable; F17.210 Nicotine dependence, cigarettes, uncomplicated; E87.1 Hypo-osmolality and hyponatremia; Z91.14 Patient's other noncompliance with medication regimen; Z79.899 Other long term (current) drug therapy
CPT/HCPCS: 41599; 36415; 70487; 80048; 80053; 80202; 84484; 85025; 85610; 85730; 87641; 93005; 96361; 96365; 96366; 96367; 96375; 96376; 97802; 99218; 99251; 99284; 99406; J7030; J7050; Q9967; A4216; G0378; G0463; J0295; J2405

== ENCOUNTER → 2020-06-21 12:41 | Outpatient (CLI) | payer MEDICAID, SELFPAY ==
[2020-06-21 12:11] VITALS: BMI 20.8
--- NOTE | 2020-06-21 12:45 | CT_ITS ---
STUDY: CT CHEST WITHOUT CONTRAST- LOW DOSE SCREENING PROTOCOL REASON FOR EXAM: Male, 60 years old. Current smoker. 40 pack per year history. No current symptoms of lung cancer or pulmonary infection. Shared decision-making with referring PCP documented in patient''s record. RADIATION DOSAGE (If Supplied By Facility): CTDIvol = ( 2.55 ) mGy, DLP = ( 105.26 ) mGycm TECHNIQUE: Low dose screening CT examination performed from the base of the neck to the upper abdomen. Sagittal and coronal reformatted images performed. Sagittal and coronal MIP images provided. The measurements provided are average, rounded measurements per ACR guidelines. COMPARISON: FINDINGS: Mild bilateral apical scarring. Mild emphysematous changes. There is no demonstrated pleural abnormality. Normal heart and pericardium. There are calcifications of the coronary arteries. Normal mediastinum. Normal hilar regions. Normal unenhanced pulmonary arteries. No change in the 4.0 cm aneurysm of the ascending aorta and dilatation aortic arch likely from chronic hypertension or aortic stenosis. Normal osseous structures. There is no demonstrated abnormality of the visualized upper abdomen. CT/Low Dose CT Lung Screening IMPRESSION: 1. No significant indeterminate incidental findings requiring additional imaging. 2. Incidental findings include 4 cm aneurysm of the ascending aorta likely from chronic hypertension or aortic stenosis.. ASSESSMENT CATEGORY: LungRADS 1 - Negative. Continue annual screening with LDCT in 12 months, per established ACR guidelines. Electronically Signed: Twan Whitlock MD at 13:30 EST Tel , Service support ,
== END ==
PROVIDERS: PCP Family Medicine; Referring Provider Nurse Practitioner Family; Visit Provider Nurse Practitioner Family
DX: F17.209 Nicotine dependence, unspecified, with unspecified nicotine-induced disorders (principal); Z12.2 Encounter for screening for malignant neoplasm of respiratory organs
CPT/HCPCS: 71271

== ENCOUNTER → 2020-07-28 13:03 | Outpatient (CLI) | payer MEDICAID, SELFPAY ==
[2020-07-20 08:46] VITALS: BMI 19.3
== END ==
PROVIDERS: PCP Family Medicine; Referring Provider Internal Medicine Cardiovascular Disease; Visit Provider Internal Medicine Cardiovascular Disease
DX: I25.10 Atherosclerotic heart disease of native coronary artery without angina pectoris (principal); I10 Essential (primary) hypertension
CPT/HCPCS: 93306

== ENCOUNTER 2021-07-21 13:32 | Emergency (ER) | payer MEDICAID, SELFPAY ==
[2021-07-21 13:33] VITALS: BP 183/113; PULSE 74; RESP 15; TEMP 36.2; O2SAT 96; BMI 18.5
[2021-07-21 13:36] VITALS: BP 183/113; PULSE 81; RESP 15; O2SAT 100
--- NOTE | 2021-07-21 13:37 | RAD_ITS ---
STUDY: X-RAY CHEST REASON FOR EXAM: Male, 61 years old. Chest pain TECHNIQUE: Single AP portable view of the chest. COMPARISON: Comparison is made with prior study dated 05/13/2019. FINDINGS: EKG electrodes are seen. Hyperinflation. The lungs are clear. There is no demonstrated pleural abnormality. Normal size heart. Normal mediastinum and lucero. Normal visualized pulmonary arteries. Normal visualized aortic arch and descending thoracic aorta. Normal visualized thoracic spine. Normal visualized ribs, clavicles, and shoulders. There is no demonstrated abnormality of the visualized soft tissue structures of the upper abdomen. RAD/Chest 1 View (Portable) IMPRESSION: Hyperinflation. The lungs are clear. Electronically Signed: Trey Raymundo MD at 14:09 EDT ,
--- NOTE | 2021-07-21 13:37 | EKG12_ITS ---
Test Reason : CP Blood Pressure : / mmHG Vent. Rate : 077 BPM Atrial Rate : 077 BPM P-R Int : 106 ms QRS Dur : 132 ms QT Int : 410 ms P-R-T Axes : 058 090 036 degrees QTc Int : 463 ms Sinus rhythm with short DC with Premature atrial complexes Non-specific intra-ventricular conduction block Abnormal ECG Confirmed by CARLIE TINEO, FAITH ([id number]), avid editor ASHU MAZA ([id number]) on 07/25/2021 11:24:14 AM Referred By: ANUEL Confirmed By:FAITH SEXTON MD
[2021-07-21 13:44] VITALS: O2SAT 100
--- NOTE | 2021-07-21 13:44 | ED.VIS.CHEST ---
HPI History of Present Illness Chief Complaint: Chest Pain Informant: patient Onset/Context/Timing Onset: Today Activity at onset: sudden Timing: Continuous Quality: Positive for Sharp Location: Left Chest Current Severity: Moderate Worsened By: Nothing Relieved By: Nothing Associated Symptoms: Positive for Dyspnea; Negative for Nausea, Vomiting, Diaphoresis, Cough, Fever, Lightheadedness, Acid Reflux and Palpitations Narrative Narrative: 61-year-old male known history of thoracic aneurysm, hypertension and hepatitis. Patient states he was at home he was feeling fine. He stood up had sudden onset left-sided chest pain. No nausea. No diaphoresis. No radiation. Never had pain like this before. He has no known cardiac disease. Denies any radiation to his arm or back. Prior Similar Symptoms: No Recent Illness/Hospitalization: No CVD Risk Factors: Positive for Hypertension and Smoking; Negative for Diabetes and Hypercholesterolemia PE Risk Factors: Negative for Recent Travel/Surgery, Recent Immobilization, Prior DVT or PE, Cancer and OCP + Smoking + >/=35 TAD Risk Factors: Negative for Marfan's Syndrome PFSH PFSH Medical History Acute hepatitis Cluster headache Coronary artery calcification seen on CAT scan COVID-19 Elevated liver enzymes Essential (primary) hypertension Facial abscess Facial cellulitis (04/2020) Marijuana abuse Nicotine dependence Opioid abuse Right bundle branch block (RBBB) Thoracic aortic aneurysm (TAA) Tobacco use Home Medications amlodipine 10 mg PO DAILY #30 tab 05/06/20 [Rx Last Taken Unknown] losartan 50 mg tablet 50 mg PO DAILY #90 tablet 07/20/20 [Rx Last Taken Unknown] dexamethasone 4 mg tablet 4 mg PO DAILY #5 tab 06/14/21 [Rx Last Taken Unknown] lisinopril 20 mg PO DAILY 30 Days #30 tab 07/21/21 [Rx Last Taken Unknown] Allergy/AdvReac Type Severity Reaction Status Date / Time No Known Allergies Allergy Verified 07/20/20 08:46 Family History Mother Skin cancer Father Hypertension COPD (chronic obstructive pulmonary disease) Surgical History History of hemorrhoidectomy History of surgery on arm Social History Smoking Status: Current every day smoker tobacco type: cigarettes Tobacco: How many years used: 45 Electronic Cigarette Use: not used second hand exposure: Yes (roommates smoked (3-4yr time period)) quit status: has quit before counseling given: provider counseling substance use type: marijuana, opiates and other details: stop opiod use, continues to use marijuana ROS ROS ED ROS Narrative Chest pain. Patient denies any recent exertional chest pain or exertional shortness of breath. Review of Systems ROS Unobtainable: Denies due to encephalopathy Constitutional Constitutional ED: Denies fever(s) Eyes Eyes: Denies none ENT ENT ED: Denies ear pain Cardiovascular Cardiovascular: Reports as per HPI and chest pain; Denies palpitations or racing heartbeat Respiratory/Chest Respiratory/Chest: Denies cough or dyspnea Gastrointestinal Gastrointestinal: Denies abdominal pain, nausea or vomiting Genitourinary Genitourinary ED: Denies dysuria Musculoskeletal Musculoskeletal: Denies myalgias Integumentary Denies rash Neurologic Neurologic: Denies headache(s) Psychiatric Psychiatric: Denies depression Endocrine Endocrinology: Denies polyuria Hematologic/Lymphatic Hematologic/Lymphatic: Denies easy bruising Allergic/Immunologic Allergic/Immunologic ED: Denies urticaria EXAM Physical Exam Narrative Exam Narrative: 61-year-old male very animated as the nurses were placing the IV in his left arm. Vital signs are stable his blood pressure is elevated at 183/113. Pulse ox 96% on room air no signs hypoxia. H EENT exam unremarkable. Poor dentition. Neck nontender no JVD. No lymphadenopathy. Lungs clear to auscultation bilaterally. Heart regular rate and rhythm rate about 80 no murmur. Chest wall nontender. No ecchymosis or bruising. No subcu air crepitance. Abdomen soft nontender. Back nontender. Moving all 4 extremities. Calves are nontender without edema or cords. Neurologically is awake alert with no motor deficits. Const Vital Signs: 07/21/21 13:33 07/21/21 13:36 07/21/21 13:44 Temperature 97.2 F L Temperature Source Temporal Pulse Rate 74 81 Respiratory Rate 15 15 Respiratory Effort Short of Breath Blood Pressure 183/113 H 183/113 H Blood Pressure Mean 136 136 Pulse Ox 96 100 100 Oxygen Delivery Method Room Air Room Air Room Air 07/21/21 14:46 07/21/21 16:20 Temperature Temperature Source Pulse Rate 75 65 Respiratory Rate 11 L 21 H Respiratory Effort Blood Pressure 169/72 H 180/85 H Blood Pressure Mean 104 116 Pulse Ox 100 97 Oxygen Delivery Method Room Air Room Air Positive well nourished and well developed; Negative for obese, cachectic, contractures or unkempt General Appearance ED: well developed and NAD; Negative for unkempt, cachectic, contractures or pallor Nutritional Appearance: Negative for cachectic or obese HEENT Reports moist mucous membranes normocephalic and atraumatic; Negative for trauma or tenderness Eyes PERRL and EOMs intact bilaterally General Eye ED: Negative for pale conjunctiva or scleral icterus Neck no lymphadenopathy, supple and no JVD General: Negative for tenderness Chest Wall inspection of chest normal and palpation of chest normal Chest: Negative for tenderness Resp normal respiratory effort and clear to auscultation bilaterally Effort and Inspection: respiratory distress Auscultation: Negative for rales, rhonchi or wheezes Cardio regular rate, regular rhythm, S1 normal heart sound, S2 normal heart sound and no murmurs Rate: Negative for bradycardia or tachycardic GI normal to inspection, nondistended, normoactive bowel sounds, soft to palpation, non-tender, non-distended and no masses Back/Spine no CVA tenderness and no thoracic nor lumbar tenderness General Back: Negative for CVA tenderness Cervical Spine: Negative for cervical spine tenderness Extremity normal to inspection General Extremety ED: Negative for edema or tenderness General Extremity: Negative for edema Neuro oriented x3 Sensorium / Orientation: awake, alert, oriented to person, oriented to place and oriented to time Motor Exam: strength 5/5 throughout Psych mental status grossly normal Appearance: Negative for unkempt Attitude: No agitated Mood & Affect: anxious; Negative for depressed or tearful Skin no rashes or lesions noted and no wounds General Skin Exam: Negative for jaundice or pallor Heart Score History: Slightly/Non-Suspicious ECG: Normal Age: >45 - <65 years Risk Factors: 1 or 2 Risk Factors Troponin: </= Normal Limit Score: 2 MDM MDM MDM Narrative Medical decision making narrative: 61-year-old male with chest pain that occurred when he stood up. Exam is benign. Undergo cardiac work-up. Differential would include MO, ischemia, dissection, pneumothorax, he has no risk factors for PE or history. Repeat exam unchanged. Patient still complaining of pain. He will be treated with IV morphine and Zofran. He initially did not tell me that his family told me he did fall yesterday and injured his left rib cage. He may have a broken rib that we will see on x-ray. He will be treated with IV morphine and Zofran and a CTA of his chest is being obtained. Also repeat EKG. Repeat exam at 3:20 PM patient doing much better. He was treated with a morphine for his pain. Repeat exam patient is doing well at 5:24 PM. Blood pressure is 180/85. Patient stopped taking his blood pressure medication 6 months ago. He and I discussed that and the risk of intracranial bleeds, heart attacks, stroke or kidney failure. He will be placed on lisinopril 20 mg a day and follow-up with his primary care physician of his blood pressure was rechecked. I believe his chest pain is from chest wall pain from a fall he had several days ago. Lab Data Attestation: I reviewed the patient's lab results. Lab results narrative: CBC normal white count of 7. H&H 16 and 48. Platelets 171. Chest x-ray chronic changes no acute process. Chemistries unremarkable gap of 3 BUN 21 creatinine 1.3. Troponins x2 were normal at 13 and 12. CTA showed no acute process. Labs: Laboratory Results - last 24 hr 07/21/21 07/21/21 07/21/21 13:42 13:42 15:58 WBC 7.6 RBC 4.96 Hgb 16.2 Hct 48.2 MCV 97.2 H MCH 32.7 H MCHC 33.6 RDW Std Deviation 48.2 H RDW Coeff of Duncan 13.3 Plt Count 171 MPV 10.8 Immature Gran % (Auto) 0.300 Neut % (Auto) 61.6 Lymph % (Auto) 29.4 Merrick % (Auto) 8.0 Eos % (Auto) 0.3 Baso % (Auto) 0.4 Absolute Neuts (auto) 4.7 Absolute Lymphs (auto) 2.24 Nucleated RBC % 0 Sodium 138 Potassium 4.8 Chloride 108 H Carbon Dioxide 27.0 Anion Gap 3 L BUN 21 H Creatinine 1.30 Estim Creat Clear Calc 53.17 Est GFR (MDRD) Af Amer 72 Est GFR (MDRD) Non-Af 59 L BUN/Creatinine Ratio 16.2 Glucose 93 Calcium 9.3 Troponin I High Sens 13 12 Radiography Chest X-Ray - ED: 1 View, Read by ED Physician, Heart, Lungs, Mediastinum, Bony Structures and Chronic Changes Diagnostic Testing: Clinical Impression(s) from Imaging Studies Chest X-Ray 07/21/21 13:37 IMPRESSION: Hyperinflation. The lungs are clear. Electronically Signed: Trey Raymundo MD at 14:09 EDT , Chest CTA 07/21/21 15:01 IMPRESSION: No evidence of pulmonary embolism. Emphysematous changes worse in the upper lobes. No evidence of thoracic aneurysm. Electronically Signed: Trey Raymundo MD at 15:22 EDT , Chest x-ray, portable, single view interpreted myself shows no acute abnormality. Normal cardiac silhouette mediastinum. No pneumothorax. No infiltrate. Chronic changes. Rhythm Strip Rhythm Strip: Sinus Rhythm Rate: 77 Ectopy: PAC(s) EKG Initial EKG: Attestation: I personally reviewed and interpreted this EKG as follows: Interpretation: Sinus Rhythm and No Acute Injury Pattern Comments: Sinus rhythm rate of 77 no acute signs of MO or ischemia. PACs. Nonspecific interventricular block. Follow-up EKG: Attestation: I personally reviewed and interpreted this EKG as follows: Interpretation: Sinus Rhythm and No Acute Injury Pattern Comments: Repeat EKG done at 2:39 PM shows a sinus rhythm rate of 70 with no acute signs of MO or ischemia. Unchanged from the initial. Discharge Plan Triage Chief Complaint: Chest Pain ED Provider: Abhi Irizarry Dx/Rx/DC Orders Clinical Impression: Chest wall contusion, Chest pain, Chronic hypertension, Medical non-compliance Instructions: ED Chest Wall Contusion, ED Hypertension, Established Prescriptions: New lisinopril 20 mg tablet 20 mg PO DAILY 30 Days Qty: 30 RF: 0 No Action losartan 50 mg tablet 50 mg PO DAILY Qty: 90 RF: 3 dexamethasone [Decadron] 4 mg tablet 4 mg PO DAILY Qty: 5 RF: 0 amlodipine 10 MG tablet 10 mg PO DAILY Qty: 30 RF: 0 Primary Care Provider: Adolfo Pierson Referrals: Adolfo Pierson MD [Primary Care Provider] - As soon as possible Activity Restrictions/Additional Instructions: Ice to chest wall. Motrin and Tylenol for pain. Use a pillow to brace your chest wall. Stop smoking. Start taking your blood pressure medication before you go to bed at night. Log your blood pressures twice daily when you follow-up with your physician show those blood pressure readings to them so they can decide if they need to change or adjust the blood pressure medication. Disposition Disposition: Home, Self Care
[2021-07-21] MEDS: Aspirin 81 MG TAB.CHEW 324 MG PO (13:55)
[2021-07-21 13:57] LABS: Absolute Lymphocyte Count 2.24 X10^3/uL (0.83-4.51); Absolute Neutrophil Count 4.7 X10^3/uL (2.0-7.7); Basophil# 0.03 X10^3/uL; Basophil% 0.4 % (0-1); Eosinophil# 0.02 X10^3/uL; Eosinophils% 0.3 % (0-5); Hematocrit 48.2 % (40-54); Hemoglobin 16.2 g/dL (13.0-16.5); Lymphocyte # 2.24 X10^3/ul (0.83-4.51); Lymphocyte % 29.4 % (19-41); Mean Corp Hgb Conc 33.6 g/dL (32-36); Mean Corpuscular Hgb 32.7 pg (27.0-32.0); Mean Corpuscular Volume 97.2 fL (80-94); Mean Platelet Vol. 10.8 fl (6.2-12.0); Monocyte# 0.61 X10^3/uL; NRBC Flagged by Analyzer 0 % (0-5); Neutrophil # 4.71 X10^3/uL (2.7-7.7); Neutrophil % 61.6 % (47-70); Platelet Count 171 K/mm3 (150-450); RBC Distribution Width CV 13.3 % (11.6-14.6); RBC Distribution Width SD 48.2 fl (35.1-43.9); Red Blood Count 4.96 M/mm3 (4.6-6.2); White Blood Count 7.6 K/mm3 (4.4-11.0)
[2021-07-21 14:15] LABS: Anion Gap 3 (5-15); BUN 21 mg/dL (7-18); BUN/Creat Ratio 16.2 RATIO (10-20); Calcium,Total 9.3 mg/dL (8.5-10.1); Chloride 108 mmol/L (98-107); EST Glomerular Filtration Rate 59 mL/min (>60); Est Glom Filt Rate - Afr Amer 72 mL/min (>60); Estimated Creatinine Clearance 53.17 ml/min; Glucose 93 mg/dL (74-106); Potassium 4.8 mmol/L (3.5-5.1); Sodium Level 138 mmol/L (136-145); Troponin-I HS (w/2H Reflex) 13 pg/mL (3.0-78.0)
--- NOTE | 2021-07-21 14:34 | EKG12_ITS ---
Test Reason : REPEAT Blood Pressure : / mmHG Vent. Rate : 070 BPM Atrial Rate : 070 BPM P-R Int : 102 ms QRS Dur : 134 ms QT Int : 424 ms P-R-T Axes : 050 091 070 degrees QTc Int : 457 ms Poor data quality, interpretation may be adversely affected Sinus rhythm with sinus arrhythmia with short TN Non-specific intra-ventricular conduction block Abnormal ECG Confirmed by CARLIE TINEO, FAITH ([id number]), society editor ASHU MAZA ([id number]) on 07/25/2021 11:24:30 AM Referred By: ANUEL Confirmed By:FAITH SEXTON MD
[2021-07-21 14:46] VITALS: BP 169/72; PULSE 75; RESP 11; O2SAT 100
[2021-07-21] MEDS: morphine 8 MG/ML Syringe IV (14:50)
[2021-07-21] MEDS: Ondansetron 4 MG/2 ML Vial IV (14:51)
--- NOTE | 2021-07-21 15:01 | CT_ITS ---
STUDY: CTA CHEST REASON FOR EXAM: Male, 61 years old. CP. May have a broken left rib and Thor Aneurysm RADIATION DOSAGE (If Supplied By Facility): CTDIvol = ( 17.36 ) mGy, DLP = ( 253.65 ) mGycm TECHNIQUE: The examination was performed with the intravenous administration of IV 100mL Isovue-370. Post-processing of the angiographic images was performed, with multiplanar reformation and 3D reconstruction. Individualized dose optimization techniques were used for this CT. COMPARISON: Comparison is made with prior examination dated 02/21/2021. FINDINGS: Normal enhancement of the main pulmonary artery and right and left pulmonary arteries. Normal enhancement of the bilateral peripheral pulmonary arteries. There is no demonstrated pulmonary embolism. There is atherosclerotic calcification of the aortic arch with tortuosity. There is no demonstrated aortic dissection. There are calcifications of the coronary arteries. Normal mediastinum. Normal hilar regions. Normal visualized trachea and bronchi. Hyperinflation. Emphysematous changes worse in the upper lobes. No infiltrate or mass lesion is seen. Normal pulmonary parenchyma. Normal pleura. Normal chest wall structures. There are mild degenerative changes of thoracic spine. Small cysts are seen in the liver. CT/CTA Chest W/WO Contrast IMPRESSION: No evidence of pulmonary embolism. Emphysematous changes worse in the upper lobes. No evidence of thoracic aneurysm. Electronically Signed: Trey Raymundo MD at 15:22 EDT ,
[2021-07-21 15:51] LABS: Reflex Troponin-HS? (from REC) Y
[2021-07-21 16:20] VITALS: BP 180/85; PULSE 65; RESP 21; O2SAT 97
[2021-07-21 16:24] LABS: Troponin-I HS 12 pg/mL (3.0-78.0)
[2021-07-21 17:42] VITALS: BP 174/84; PULSE 67; RESP 15; O2SAT 97
== END 2021-07-21 17:43 | disposition home or self-care (01) ==
PROVIDERS: Emergency Provider Emergency Medicine; PCP Family Medicine; Visit Provider Emergency Medicine
DX: S20.20XA Contusion of thorax, unspecified, initial encounter (principal); R07.9 Chest pain, unspecified; I10 Essential (primary) hypertension; F17.210 Nicotine dependence, cigarettes, uncomplicated; F12.90 Cannabis use, unspecified, uncomplicated; Z86.16 Personal history of COVID-19; X58.XXXA Exposure to other specified factors, initial encounter
CPT/HCPCS: 71045; 71275; 80048; 84484; 85025; 93005; 96374; 96375; 99284; Q9967; A4216; J2405

== ENCOUNTER → 2021-09-05 | Outpatient (CLI) | payer MEDICAID, SELFPAY ==
--- NOTE | 2021-09-05 12:38 | CT_ITS ---
STUDY: LOW DOSE CT LUNG CANCER SCREENING REASON FOR EXAM: Male, 61 years old. Lung cancer screening -- 45 pk yr history:current smoker; asymptomatic RADIATION DOSAGE (If Supplied By Facility): CTDIvol = ( 2.01 ) mGy, DLP = ( 79.27 ) mGycm TECHNIQUE: No contrast was administered. Low dose technique was utilized (average mAS-38 and kVp 120). 1.25 mm axial source images with a slice interval of 1.25-mm were reconstructed in lung windows. 2.5 mm axial source images with a slice interval of 2.5-mm were reconstructed in lung windows. 5.0 mm axial source images with a slice interval of 5.0-mm were reconstructed in soft tissue windows. COMPARISON: Comparison is made with prior examination dated 06/21/2020 and 06/02/2019. NODULES: No suspicious nodules are seen. Emphysema: Hyperinflation. Emphysematous changes with decreased bronchovascular markings more prominent in the upper lobes. Endobronchial lesion: None Aorta: Atherosclerotic calcific plaques. CORONARY ARTERIES: Coronary artery calcification Heart: Unremarkable Pulmonary artery: Unremarkable Mediastinal nodes: Small benign appearing mediastinal lymph nodes. Other chest and abdominal findings: CT/Low Dose CT Lung Screening IMPRESSION: Lung-RADS category 2 - Continue annual screening with LDCT in 12 months. IMPORTANT NOTES FOR USE: ACR Lung-RADS Version 1.1 Assessment Categories Release Date: 2018 Category: Coded 0-4 bases on nodule(s) with highest degree of suspicion. Negative screen is defined as categories 1 and 2; a positive screen is defined as categories 3 and 4. Category 3 and 4A nodules that are unchanged on interval CT should be coded as category 2, and individuals returned to screening in 12 months. Category 4X: Category 3 or 4 nodules with additional imaging findings that increase the suspicion of lung cancer, such as spiculation, GGN that doubles in size in 1 year, enlarged lymph notes, etc. Category Modifiers: S (significant finding unrelated to lung cancer) Electronically Signed: Trey Raymundo MD at 13:19 EDT ,
== END | disposition home or self-care (01) ==
LOC: CT 12:37
PROVIDERS: PCP Family Medicine; Visit Provider Nurse Practitioner Family
DX: Z12.2 Encounter for screening for malignant neoplasm of respiratory organs (principal); Z87.891 Personal history of nicotine dependence
CPT/HCPCS: 71271

== ENCOUNTER → 2022-04-04 | Outpatient (CLI) | payer MEDICAID, SELFPAY ==
--- NOTE | 2022-04-04 16:00 | RAD_ITS ---
INDICATION: cough EXAMINATION: Frontal and lateral views of the chest. COMPARISON: Chest x-ray July 21, 2021.. FINDINGS: Frontal and lateral views of the chest were obtained. Hyperinflation. The cardiac silhouette is not enlarged. No confluent airspace disease. No pleural effusion or pneumothorax. RAD/Chest PA and Lateral IMPRESSION: Hyperinflation. No acute pulmonary disease. Electronically Signed: Mario Gay MD at 1:29 EST ,
[2022-04-04 16:43] LABS: Absolute Lymphocyte Count 1.74 X10^3/uL (0.83-4.51); Absolute Neutrophil Count 4.8 X10^3/uL (2.0-7.7); Basophil# 0.03 X10^3/uL; Basophil% 0.4 % (0-1); Hematocrit 52.6 % (40-54); Hemoglobin 17.4 g/dL (13.0-16.5); Lymphocyte # 1.74 X10^3/ul (0.83-4.51); Lymphocyte % 24.1 % (19-41); Mean Corp Hgb Conc 33.1 g/dL (32-36); Mean Corpuscular Hgb 32.3 pg (27.0-32.0); Mean Corpuscular Volume 97.8 fL (80-94); Mean Platelet Vol. 11.9 fl (6.2-12.0); Monocyte# 0.65 X10^3/uL; NRBC Flagged by Analyzer 0 % (0-5); Neutrophil # 4.76 X10^3/uL (2.7-7.7); Neutrophil % 66.1 % (47-70); POSITIVE COUNT YES; POSITIVE MORPHOLOGY YES; Platelet Count 96 K/mm3 (150-450); RBC Distribution Width CV 13.2 % (11.6-14.6); RBC Distribution Width SD 47.6 fl (35.1-43.9); Red Blood Count 5.38 M/mm3 (4.6-6.2); White Blood Count 7.2 K/mm3 (4.4-11.0)
[2022-04-04 16:55] LABS: Differential Indicated SCAN CRITERIA MET
[2022-04-04 17:09] LABS: ALB/GLOB Ratio 0.8 RATIO (0.9-2.4); AST(SGOT) 23 U/L (15-37); Alanine Aminotransfer ALT/SGPT 21 U/L (16-61); Albumin, Serum 3.1 g/dL (3.2-5.0); Alkaline Phosphatase 74 U/L (45-117); Anion Gap 9 (5-15); BUN 27 mg/dL (7-18); BUN/Creat Ratio 20.9 RATIO (10-20); Calcium,Total 8.7 mg/dL (8.5-10.1); Chloride 100 mmol/L (98-107); Creatinine, Serum 1.29 mg/dL (0.70-1.30); EST Glomerular Filtration Rate 60 mL/min (>60); Est Glom Filt Rate - Afr Amer 72 mL/min (>60); Globulin 3.9 g/dL (2.2-4.2); Glucose 99 mg/dL (74-106); Potassium 4.2 mmol/L (3.5-5.1); Sodium Level 133 mmol/L (136-145); Thyroid Stim Hormone (TSH) 2.71 uIU/mL (0.358-3.74)
[2022-04-04 18:00] LABS: Differential Comment SCANNED; Reactive Lymphocyte 1+
== END | disposition home or self-care (01) ==
PROVIDERS: PCP Nurse Practitioner Family; Referring Provider Nurse Practitioner Family; Visit Provider Nurse Practitioner Family
DX: R05.9 Cough, unspecified (principal); J44.1 Chronic obstructive pulmonary disease with (acute) exacerbation; R53.83 Other fatigue; R06.00 Dyspnea, unspecified; Z72.0 Tobacco use
CPT/HCPCS: 87635; 36415; 71046; 80053; 84443; 85025; 87633; U0003; U0005

== ENCOUNTER → 2022-04-06 | Outpatient (CLI) | payer MEDICAID, SELFPAY ==
[2022-04-06 12:10] LABS: Color, Urine Yellow (Yellow); Glucose, Dipstick Normal (Normal); Ketone-Dipstick 5 mg/dl (Negative); Leukocyte Esterase-Dipstick 25 /ul (Negative); Nitrite-Dipstick Negative (Negative); Occult Blood-Urine 25 /ul (Negative); Protein-Dipstick 500 mg/dl (Negative); Urine Bilirubin Dipstick Negative (Negative); Urine Clarity Clear (Clear); Urine Urobilinogen Normal (Normal)
[2022-04-06 12:37] LABS: Amphetamine Urine VISTA NEGATIVE (<1000 ng/mL); Barbiturate Urine VISTA NEGATIVE (< 200 ng/mL); Benzodiazepine Urine VISTA NEGATIVE (< 200 ng/mL); Cocaine Urine VISTA NEGATIVE (< 300 ng/mL); Ecstacy Urine VISTA NEGATIVE (< 500 ng/mL); Methadone Urine VISTA NEGATIVE (< 300 ng/mL); PCP Urine VISTA NEGATIVE (< 25 ng/mL); THC Urine VISTA POSITIVE (< 50 ng/mL); Vista UDS pH Range 5
[2022-04-06 12:43] LABS: Bacteria 1+ /hpf (None Seen); Mucous, Urine 1+ /hpf (<or=2+); Red Blood Cells-Urine 0-5 SEEN /hpf (0-5); Squamous Epithelial Cells - UA 0-5 SEEN /hpf (0-5); White Blood Cells 0-5 SEEN /hpf (0-5)
== END | disposition home or self-care (01) ==
LOC: LABSPEC 11:01
PROVIDERS: PCP Nurse Practitioner Family; Referring Provider Nurse Practitioner Family; Visit Provider Nurse Practitioner Family
DX: R30.0 Dysuria (principal); J44.1 Chronic obstructive pulmonary disease with (acute) exacerbation; R53.83 Other fatigue; R06.00 Dyspnea, unspecified; Z72.0 Tobacco use
CPT/HCPCS: 80307; 81001; 87086; 87088

== ENCOUNTER → 2022-04-12 | Outpatient (CLI) | payer MEDICAID, SELFPAY ==
--- NOTE | 2022-04-12 08:06 | US_ITS ---
STUDY: ABDOMINAL ULTRASOUND REASON FOR EXAM: Male, 62 years old. POLYCYTHEMIA/HX OF HEP A TECHNIQUE: Transabdominal ultrasound was performed with real-time and static montoya scale imaging. TECHNICAL QUALITY: Adequate. COMPARISON: Comparison is made with prior study dated 05/13/2019. FINDINGS: Liver: The liver measures 14.5 cm. There is normal echogenicity of the liver. The bile ducts are within normal limits. There is hepatic color flow. The direction of portal flow is hepatopetal. There is a 1.6 x 1.7 cm Bard 1.5 cm cyst in the right lobe of the liver. Gallbladder: Normal distended gallbladder. The gallbladder wall measures 2 mm. There is a negative sonographic Santos''s sign. There is no pericholecystic fluid. There are no gallstones. Common Bile Duct (C.B.D.): The common bile duct measures 3 mm. Pancreas: Normal size of the head, body and tail of the pancreas. There is normal echogenicity of the pancreas. There is no demonstrated pancreatic mass or cyst. Spleen: Normal size of the spleen. The spleen measures 9.7 cm x 4.1 cm x 3.3 cm. Right Kidney: There is atrophy of the right kidney. The right kidney measures 6.8 cm x 3.3 cm x 1.7 cm. There is thinning of the renal cortex. The right cortex measures 0.4 cm. There is no demonstrated renal mass or cyst. There is no right hydronephrosis. Left Kidney: Normal size of the left kidney. The left kidney measures 12 cm x 5.8 cm x 5.3 cm. Normal renal cortex. The left cortex measures 1.6 cm. There is no demonstrated renal mass or cyst. There is no left hydronephrosis. Aorta: Unremarkable I.V.C.: The IVC is patent. There is no ascites. US/Abdomen Complete IMPRESSION: Atrophy of the right kidney. Small cyst in the right lobe of the liver. Electronically Signed: Trey Raymundo MD at 13:15 EST ,
--- NOTE | 2022-04-12 13:43 | PFTCOMP ---
COMPLETE PULMONARY FUNCTION TEST INTERPRETATION Brief HPI: Patient is a 62-year-old male, currently under the care of Bob Wiley, who presents to [facility] for complete pulmonary function tests secondary to diagnosis of dyspnea. Respiratory therapist reports good effort and reproducible results. Interpretation: Forced expiration spirometry shows a moderate large airways obstructive ventilatory defect with an FEV1 of 65% predicted. There is no significant bronchodilator response by strict ATS criteria. Spirograms are of good quality and plateau slowly, indicating slowly emptying areas of the lungs. The respiratory flow volume loop shows decreased expiratory flow rates at all lung volumes consistent with airway obstruction. Lung volumes by body plethysmography show a normal total lung capacity at 7.36 L, 100% predicted. All other lung volumes are within normal limits. Diffusion capacity by carbon monoxide is normal at 106% predicted. The airway resistance is elevated. No previous pulmonary function tests were available for review. Impression: Irreversible moderate large airways obstructive ventilatory defect with preserved lung volumes and DLCO, and a pattern consistent with chronic bronchitis
== END | disposition home or self-care (01) ==
PROVIDERS: PCP Nurse Practitioner Family; Visit Provider Nurse Practitioner Family
DX: D69.6 Thrombocytopenia, unspecified (principal); N26.1 Atrophy of kidney (terminal); D75.1 Secondary polycythemia; Z86.19 Personal history of other infectious and parasitic diseases; R06.00 Dyspnea, unspecified
CPT/HCPCS: 76700; 94060; 94726; 94729

== ENCOUNTER → 2022-04-25 | Outpatient (CLI) | payer MEDICAID, SELFPAY ==
--- NOTE | 2022-04-25 12:30 | ECHOD_ITS ---
Reason For Study: Murmur Procedure This was a 2D Doppler, Color Flow transthoracic echocardiogram. Exam performed in department. Left Ventricle Normal LV size. Mild concentric left ventricular hypertrophy. Left ventricular systolic function is normal. The estimated ejection fraction is 55 %. Stage 1 diastolic dysfunction. No regional wall motion abnormalities noted. Right Ventricle Normal RV size. Normal systolic function. Atria Normal left atrium. Normal right atrium. Mitral Valve Normal mitral valve. Mild (1+) eccentric mitral valve insufficiency. Tricuspid Valve Normal tricuspid valve. Aortic Valve Normal aortic valve. Trisinus/trileaflet aortic valve. Mild (1+) eccentric aortic valve insufficiency. Pulmonic Valve Normal pulmonic valve. Great Vessels Normal aortic root. The pulmonary artery is normal size. Normal inferior vena cava. Pericardium/Pleural No pericardial effusion. MMode/2D Measurements & Calculations LVIDd: 5.9 cm IVSd: 1.3 cm LVOT diam: 2.0 cm LVIDs: 4.6 cm LVPWd: 1.3 cm LVOT area: 3.1 cm2 RVDd: 2.9 cm FS: 21.7 % LA dimension: 3.8 cm LAV(MOD-bp): 60.3 ml LA A4 area: 20.2 cm2 LAV(MOD-bp) Indexed: 32.6 ml/m2 LAV(MOD-sp2): 58.0 ml LAV(MOD-sp4): 53.6 ml RA A4 area: 10.1 cm2 Time Measurements MV dec time: 0.38 sec Doppler Measurements & Calculations MV E max freedom: 57.3 cm/sec Lat Peak E' Freedom: 3.8 cm/sec Med Peak E' Freedom: 9.8 cm/sec MV A max freedom: 105.0 cm/sec E/E' lat: 15.0 E/E' med: 5.8 MV E/A: 0.55 MV V2 max: 106.8 cm/sec MV P1/2t max freedom: 81.0 cm/sec Ao V2 max: 210.4 cm/sec MV max P.6 mmHg MV P1/2t: 84.7 msec Ao max P.8 mmHg MV V2 mean: 53.6 cm/sec MV dec slope: 279.9 cm/sec2 Ao V2 mean: 136.1 cm/sec MV mean P.4 mmHg Ao mean P.7 mmHg MV V2 VTI: 30.7 cm MVA(P1/2t): 2.6 cm2 Ao V2 VTI: 35.2 cm MVA(VTI): 3.4 cm2 AV (velocity ratio): 0.96 ADDISON(I,D): 3.0 cm2 ADDISON(V,D): 2.7 cm2 AI max freedom: 511.4 cm/sec LV V1 max: 184.9 cm/sec MR max freedom: 616.2 cm/sec AI max P.7 mmHg LV V1 max P.7 mmHg MR max P.9 mmHg LV V1 mean P.8 mmHg MR mean freedom: 482.9 cm/sec AI dec slope: 260.3 cm/sec2 LV V1 mean: 118.6 cm/sec MR mean P.0 mmHg AI P1/2t: 575.4 msec LV V1 VTI: 33.9 cm MR VTI: 216.9 cm SV(LVOT): 105.0 ml PA V2 max: 114.0 cm/sec ECHO/Echo Complete Interpretation Summary Normal LV size. Mild concentric left ventricular hypertrophy. Left ventricular systolic function is normal. The estimated ejection fraction is 55 %. Stage 1 diastolic dysfunction. Mild (1+) eccentric aortic valve insufficiency. Ordering Physician: Bob Wiley Performed By: Reid Fonseca RCS
== END | disposition home or self-care (01) ==
LOC: CVS 12:29
PROVIDERS: PCP Nurse Practitioner Family; Visit Provider Internal Medicine Cardiovascular Disease
DX: R01.1 Cardiac murmur, unspecified (principal); I51.7 Cardiomegaly; I35.1 Nonrheumatic aortic (valve) insufficiency
CPT/HCPCS: 93306

== ENCOUNTER 2024-06-03 06:55 | Day surgery (SDC) | payer MEDICARE, SELFPAY ==
--- NOTE | 2024-06-02 15:43 | PAT.ANESEVAL ---
Pre-Assessment Diagnosis/Proposed Procedure Planned Operative Procedure(s): EGD Anesthesia History Anesthesia History - chemist water purification: Anesthesia History - chemist water purification Hx Hospitalization No 06/02/24 13:16 Any Problems With Anesthesia No 06/02/24 13:16 Cholinesterase deficiency No 06/02/24 13:16 You/Your Family Experience No 06/02/24 13:16 fever (hyperthermia) with Relationship Recent Exposure to Contagious No 05/24/17 10:36 Disease Does patient have nerve No 06/02/24 13:16 stimulator Patient instructed to have device shut off --Does patient have Pacemaker or ICD? When Was Last Pacemaker Check QUESTION #4 FULL TEXT: You/Your Family Experience fever (hyperthermia) with Anesthesia Last Oral Intake Last Oral intake: Last Oral Intake NPO since Meds taken in AM with sips of water? Meds patient instructed to take am of surgery PONV PONV - chemist water purification: PONV - chemist water purification Female No 06/02/24 13:16 HX of Motion Sickness No 06/02/24 13:16 HX of N/V After Surgery No 06/02/24 13:16 Non-Smoker No 06/02/24 13:16 Duration of Surgery greater No 06/02/24 13:16 than 60 minutes Number of Risk Factors PONV Score Height & Weight Height & Weight: Anesthesia: Height & Weight Height 6 ft 1 in 04/29/24 14:59 Respiratory Assessment Respiratory Assessment - chemist water purification: Respiratory Tract Infection Hx - chemist water purification Hx Respiratory Tract Infection No 06/02/24 13:16 STOP Sleep Apnea STOP Sleep Apnea - chemist water purification: STOP Sleep Apnea - chemist water purification Hx Hypertension Yes 06/02/24 13:16 Hx Sleep Apnea No 06/02/24 13:16 CPAP No 05/14/19 01:07 BIPAP No 05/14/19 01:07 Do you snore loudly (louder No 06/02/24 13:16 than talking or can be heard Do you often feel tired/ No 06/02/24 13:16 fatigued/ sleepy during daytime? Has anyone observed you stop No 06/02/24 13:16 breathing during sleep? STOP Results Negative 06/02/24 13:16 QUESTION #5 FULL TEXT : Do you snore loudly (louder than talking or can be heard through closed doors)? 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 Specify any problems Hx of Preganancy in last 3 N/A 06/02/24 13:16 Months Nurse Filling Out Transfusion [facility] 06/02/24 13:16 & Questions: Date: 06/02/24 06/02/24 13:16 Time: 13:23 06/02/24 13:16 Patient unable to answer at this time (ie. confused, unrespo /Reproduction History /Reproductive History - chemist water purification: /Reproductive Hx- chemist water purification Hx Now No 06/02/24 13:16 Gestational Age (in weeks): EDC: Hx Hx Para Hx [facility] Medical History Wears glasses Prostate disease Migraine headache Gastric reflux Smoker Leg cramps History of edema History of echocardiogram Hypertension Fatigue COPD (chronic obstructive pulmonary disease) Thrombocytopenia Murmur, cardiac Dyspnea Fatigue COPD exacerbation Generalized headaches Tobacco abuse Encounter for screening for malignant neoplasm of lung in current smoker with 30 pack year history or greater COVID-19 Marijuana abuse Opioid abuse Coronary artery calcification seen on CAT scan Right bundle branch block (RBBB) Thoracic aortic aneurysm (TAA) Nicotine dependence Essential (primary) hypertension Facial abscess Tobacco use Facial cellulitis (04/2020) Elevated liver enzymes Acute hepatitis Cluster headache Home Medications ?Medication ?Instructions ?Recorded ?Last Taken ?Type nebulizers #1 ea 04/04/22 Unknown Rx budesonide-formoterol HFA 160 2 puff inhalation BID #10.2 grams 04/11/22 Unknown Rx mcg-4.5 mcg/actuation aerosol inhaler (Symbicort) blood pressure monitor (Blood #1 ea 05/23/22 Unknown Rx Pressure Kit) albuterol sulfate 90 mcg/actuation 1 - 2 puff inhalation Q6H PRN 12/04/22 Unknown Rx aerosol inhaler (ProAir HFA) shortness of breath or wheezing #8.5 grams omeprazole 40 mg capsule,delayed 40 mg PO QDAY #30 caps 04/29/24 Unknown Rx release sucralfate 1 gram tablet 1 g PO 4X/DAY 04/29/24 Unknown History tamsulosin 0.4 mg capsule 0.4 mg PO QDAY 04/29/24 Unknown History valsartan 160 mg tablet 160 mg PO QDAY 04/29/24 Unknown History Allergy/AdvReac Type Severity Reaction Status Date / Time No Known Allergies Allergy Verified 06/02/24 13:14 Family History Mother Skin cancer Father Hypertension COPD (chronic obstructive pulmonary disease) Surgical History History of surgery on arm History of hemorrhoidectomy Social History Smoking Status: Current every day smoker tobacco type: cigarettes Tobacco: How many years used: 45 Electronic Cigarette Use: not used how long ago did patient quit smoking: has went down to half a pack a day in the last six months second hand exposure: Yes (roommates smoked (3-4yr time period)) quit status: has quit before substance use type: marijuana, opiates and other details: stop opiod use, continues to use marijuana Audit: Pertinent Findings Pertinent Findings EKG Perinent findings: July 21, 2021. Sinus rhythm with sinus arrhythmia with short TX. Nonspecific intraventricular conduction block. Echo (EF%) pertinent findings: April 25, 2022. Ejection fraction 55%. No aortic stenosis noted. Minimal change from July 28, 2020. Additional pertinent findings: July 20, 2020. Dr. Hernandez. 1. Thoracic aortic aneurysm-dilated thoracic aorta. Patient needs to be under good blood pressure control. Switch doxazosin to losartan. Continue amlodipine. Reassess echo. 2. Hypertension-reevaluate ventricular function with an echocardiogram. Recommendation Anesthesia Recommendation Anesthesia recommendation: OPTIMIZED for anesthesia
[2024-06-03] VITALS (11 sets, daily range): BP systolic 91–176; BP diastolic 57–122; PULSE 64–73; RESP 12–18; TEMP 36.1–36.4; O2SAT 94–100; BMI 18.8
--- NOTE | 2024-06-03 | EGD_PTH ---
PATIENT: ISHAN MCCANN LOC: EN U#:[id number] AGE/SX: 64/M ROOM: RE06/03/[address]: Dr. Dania Barone MD : 1960 BED: DIS: 06/03/2024 SPEC #: [id number] RECD: 06/03/24 11:13 STATUS: VARUN HUMBERTO #: [id number] SHEA: 06/03/24 00:[address]: Dania Barone DEPT: SURGICAL PATHOLOGY RECD BY: Yady Posada ENTERED: 06/03/24 11:59 SP TYPE: EGD BIOPSY OT DR: Bob Wiley, WASHER CUTTER-C Tissues: A - Gastric mucous membrane B - Esophagus, NOS Procedures: Special Stain Group I Surgery Specimen Level IV Alcian Blue/PAS (control) HEADER OPERATION: EGD with biopsy PRE-OP DIAGNOSIS: Epigastric abdominal pain, abnormal CT scan, stomach TISSUE SUBMITTED: A- Gastric antrum biopsy, B- GE junction biopsy MICROSCOPIC DIAGNOSIS A. Gastric antrum, biopsy: Mild gastritis. See microscopic description and comment. B. Gastroesophageal junction, biopsy: A fragment of gastroesophageal mucosa with chronic inflammation. Intestinal metaplasia (goblet cell metaplasia) not identified. See comment. 06/04/2024 COMMENT A. The results of immunohistochemistry for Helicobacter pylori will be reported separately ([id number]). B. Alcian blue/PAS stain with matched control is used in the evaluation of the specimen. This specimen predominantly consists of squamous mucosa. MICROSCOPIC DESCRIPTION Slides are reviewed. A. The specimen shows fragments of gastric mucosa with chronic inflammatory cell infiltrates in the lamina propria consisting of lymphocytes and plasma cells, consistent with mild chronic gastritis. GROSS DESCRIPTION A. Received in fixative is one container labeled with the patient's name and designated Gastric antrum biopsy. The specimen consists of one irregular fragment of light pink soft tissue that measures 0.4 x 0.3 x 0.1 cm. The specimen is totally submitted in one cassette. B. Received in fixative is one container labeled with the patient's name and designated GE junction biopsy. The specimen consists of one irregular fragment of light pink soft tissue that measures 0.3 x 0.3 x 0.1 cm. The specimen is totally submitted in one cassette. 06/03/2024 TC:3 CPT:50570i3,57218
--- NOTE | 2024-06-03 07:20 | HP.PCM_ITS ---
HPI - General General Date of Service: 06/03/24 HPI Narrative ISHAN MCCANN, is a 64 M who presents for an EGD. Patient denies any additional abdominal pain but also has not been taking his medication was prescribed omeprazole may not have taken any of it or the Carafate. Patient also states he has not been taking his blood pressure medicine recently. Office visit 04/29/2024 HPI HPI: 64-year-old male presents for EGD. Patient went to the ER was diagnosed with gastritis due to some thickening seen on CAT scan. Patient was given omeprazole and Carafate. Patient has follow-up with PCP. Patient states he is only taking 3 medications sounds like Flomax, Carafate and blood pressure med. Patient states he is only taken the Carafate twice daily not the 4 times as he has forgotten. Patient does still have some epigastric discomfort. Patient does smoke a pack every 2 days. [facility] Medical History Wears glasses Prostate disease Migraine headache Gastric reflux Smoker Leg cramps History of edema History of echocardiogram Hypertension Fatigue COPD (chronic obstructive pulmonary disease) Thrombocytopenia Murmur, cardiac Dyspnea Fatigue COPD exacerbation Generalized headaches Tobacco abuse Encounter for screening for malignant neoplasm of lung in current smoker with 30 pack year history or greater COVID-19 Marijuana abuse Opioid abuse Coronary artery calcification seen on CAT scan Right bundle branch block (RBBB) Thoracic aortic aneurysm (TAA) Nicotine dependence Essential (primary) hypertension Facial abscess Tobacco use Facial cellulitis (04/2020) Elevated liver enzymes Acute hepatitis Cluster headache Home Medications ?Medication ?Instructions ?Recorded ?Last Taken ?Type nebulizers #1 ea 04/04/22 Unknown Rx budesonide-formoterol HFA 160 2 puff inhalation BID #1 0.2 grams 04/11/22 Unknown Rx mcg-4.5 mcg/actuation aerosol inhaler (Symbicort) blood pressure monitor (Blood #1 ea 05/23/22 Unknown R x Pressure Kit) albuterol sulfate 90 mcg/actuation 1 - 2 puff inhalati on Q6H PRN 12/04/22 Unknown Rx aerosol inhaler (ProAir HFA) shortness of breath or wh eezing #8.5 grams omeprazole 40 mg capsule,delayed 40 mg PO QDAY #30 cap s 04/29/24 Unknown Rx release sucralfate 1 gram tablet 1 g PO 4X/DAY 04/29/24 Unkno wn History tamsulosin 0.4 mg capsule 0.4 mg PO QDAY 04/29/24 Unkn own History valsartan 160 mg tablet 160 mg PO QDAY 04/29/24 Unkn own History Allergy/AdvReac Type Severity Reaction Status Date / Time No Known Allergies Allergy Verified 06/02/24 13:14 Family History Mother Skin cancer Father Hypertension COPD (chronic obstructive pulmonary disease) Surgical History History of surgery on arm History of hemorrhoidectomy Social History Smoking Status: Current every day smoker tobacco type: cigarettes Tobacco: How many years used: 45 Electronic Cigarette Use: not used how long ago did patient quit smoking: has went down to half a pack a day in the last six months second hand exposure: Yes (roommates smoked (3-4yr time period)) quit status: has quit before substance use type: marijuana, opiates and other details: stop opiod use, continues to use marijuana Past Medical/Surgical History Planned Operation Planned Operative Procedure(s): EGD S.O.S: No Previous Hospitalizations/Surgeries HX Hospitalizations: No HX of Surgeries: left arm surgery teeth removed Any Problems With Anesthesia: No You/Your Family Experience Fever (Hyperthermia) With Anes: No Cholinesterase deficiency: No Cardiovascular Hx Chest Pain within Last 2 months: No Hx of Irregular Heartbeat and/or Afib: No Hx Heart Attack: No Hx Congestive Heart Failure: No Hx Rheumatic Fever: No Hx Hypertension: Yes Hx Internal Defibrillator: No Hx Pacemaker: No Hx Cardiac Catheterization: No Hx Cardiac Surgery/Stents/Etc.: No Hx Stress Test: No Hx Pain in Legs when Walking/Leg Cramps: No Respiratory Chronic Cough: No HX of Shortness of Breath: No Hoarseness: No Hx Chronic Obstructive Pulmonary Disease (COPD): No Hx Asthma: No Hx Emphysema: No Hx Sleep Apnea: No CPAP: No BIPAP: No Hx Respiratory Tract Infection/Cold (presently): No Do You Snore Loudly (louder than talking or can be heard): No Do You Often Feel Tired/ Fatigued/ Sleepy Dring Daytime?: No Has Anyone Observed You Stop Breathing During Sleep?: No Result (for STOP score): Negative Hx Smoking: Yes Smoking Status: Current every day smoker Gastrointestinal Controlled With Meds: No Hx Gastrointestinal Disorders: No Hx Gastrointestinal Bleed: No Hx Ulcer: No Hx Hiatal Hernia: No Difficulty Chewing/Swallowing: No (pt denies) Special diet followed at home: No Hx Unplanned Weight Loss of 20#: No HX Unplanned Weight Gain of 20#: No Neurological Hx Seizures: No HX Syncope/Blackout Spells/Unconsciousness: No Hx Transient Ischemic Attacks (TIA): No Hx Multiple Sclerosis: No Hx Parkinson's Disease: No Hx Head/Neck Injury: No Hx Headaches: Yes (stopped after teeth removed) Hx Back Injury/Pain: No Recent Onset of Speech Difficulty: No Restless Legs: No Does patient have nerve stimulator: No Blood Disorder Hx Leukemia: No Bleeding Tendencies: No Hx Deep Vein Thrombosis: No Hx High Cholesterol: No Blood Transmitted Disease: No Hx Hepatitis: No Hx Cirrhosis: No Hx Anemia: No Hx Blood Disorders: No Reproduction : No Genitourinary Hx Renal Disease: No Hx Dialysis: No Musculoskeletal Hx Arthritis: No Hx Rheumatoid Arthritis: No Hx Gout: No Recent Onset of an Orthopedic Problem: No Endocrine Hx Diabetes: No Insulin: No Thyroid Disease: No Hx Steroid Therapy: No Psycho/Social Hx Substance Use: No Hx Alcohol Use: No Hx Anxiety: No Hx Depression: No Mental Illness: No Hx Dementia: No Miscellaneous Hx Cancer: No Recent Exposure to Contagious Disease: No Hx of C-Diff: No Any Loose Teeth: Yes (front right bottom) Allergies No Known Allergies Allergy (Verified 06/02/24 13:14) Maternal: Family History Mother Skin cancer Father Hypertension COPD (chronic obstructive pulmonary disease) Cancer (Mother with a history of skin cancer.) and Hypertension Paternal: Family History Mother Skin cancer Father Hypertension COPD (chronic obstructive pulmonary disease) Hypertension and - (Father with a history of cluster Headaches,) Discharge Is Pt Admitted From a Prison, or a Detention: No Who Could Help: GIRLFRIEND After D/C, Where Do you Plan to Go: Return Home Physical Exam Const alert, oriented x3 and no apparent distress HEENT normocephalic and head/scalp atraumatic Resp normal respiratory effort Cardio regular rate GI soft to palpation and non-tender; Negative for non-distended Palpation: Negative for guarding Extremity no clubbing, cyanosis or edema Skin no rashes or lesions noted Neuro CN's II-XII intact bilaterally Psych mental status grossly normal Assessment & Plan Assessment/Plan (1) Epigastric abdominal pain: (2) Abnormal CT scan, stomach: Surgery Risks - Colonoscopy I discussed with the patient the risks of the procedure: Yes Risks Include but are not Limited To: Plan for an EGD risks include but are not limited to: Bleeding, perforation requiring further surgery.
--- NOTE | 2024-06-03 07:47 | PCM.PRE.AN2 ---
ASA Classification* ASA Classification ASA Classification: 3 Assessment & Plan Anesthesia* Anesthesia Assessment Anesthesia Assessment: Discussed sedation and/or anesthesia options, risks, benefits, and alternatives with patient/parents/legal guardian/POA. Questions invited. The patient/parents/legal guardian/POA seems to understand and agrees to proceed with anesthesia plan. Reviewed the physical assessment, medical history, allergy history and patient home medications list prior to surgery/procedure/anesthetic and documented any changes. Performed airway and anesthesia risk assessments. Anesthesia Type Anesthesia Type: MAC Anesthesia Focused Assessment* Temperature: 97.6 F Pulse Rate: 73 Blood Pressure: 176/81 Respiratory Rate: 18 Pulse Ox: 100 Airway Assessment Mouth opens: >3 cm Mallampati Score: II Focused Labs Anesthesia Preop lab: CBC WBC 13.0 K/mm3 (4.4-11.0) H 04/09/22 10:30 04/09/22 RBC 5.07 M/mm3 (4.6-6.2) 04/09/22 10:30 04/09/22 Hgb 16.3 g/dL (13.0-16.5) 04/09/22 10:30 04/09/22 Hct 49.0 % (40-54) 04/09/22 10:30 04/09/22 Plt Count 181 K/mm3 (150-450) 04/09/22 10:30 04/09/22 CHEMISTRY Potassium 4.0 mmol/L (3.5-5.1) 04/09/22 10:30 04/09/22 Sodium 135 mmol/L (136-145) L 04/09/22 10:30 04/09/22 BUN 26 mg/dL (7-18) H 04/09/22 10:30 04/09/22 Creatinine 1.11 mg/dL (0.70-1.30) 04/09/22 10:30 04/09/22 Glucose 68 mg/dL (74-106) L 04/09/22 10:30 04/09/22 POC Glucose 124 mg/dL (70-110) H 05/15/19 09:51 05/15/19 TSH 2.71 uIU/mL (0.358-3.74) 04/04/22 15:39 04/04/22 COAG PT 13.2 SECONDS (11.7-14.9) 05/04/20 16:44 05/04/20 Pre-Assessment Diagnosis/Proposed Procedure Planned Operative Procedure(s): EGD Anesthesia History 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 When Was Last Pacemaker Check QUESTION #4 FULL TEXT: You/Your Family Experience fever (hyperthermia) with Anesthesia Last Oral Intake Last Oral intake: Last Oral Intake NPO since 00:00 06/03/24 07:25 Meds taken in AM with sips of No 06/03/24 07:25 water? Meds patient instructed to take am of surgery PONV PONV - showroom sales assistant: PONV - showroom sales assistant Female No 06/02/24 13:16 HX of Motion Sickness No 06/02/24 13:16 HX of N/V After Surgery No 06/02/24 13:16 Non-Smoker No 06/02/24 13:16 Duration of Surgery greater No 06/02/24 13:16 than 60 minutes Number of Risk Factors PONV Score Height & Weight Height & Weight: Anesthesia: Height & Weight Height 6 ft 1 in 06/03/24 07:25 Weight: 65 kg 06/03/24 07:25 Body Mass Index (BMI) 18.8 06/03/24 07:25 Respiratory Assessment Respiratory Assessment - showroom sales assistant: Respiratory Tract Infection Hx - showroom sales assistant Hx Respiratory Tract Infection No 06/03/24 07:22 STOP Sleep Apnea STOP Sleep Apnea - showroom sales assistant: STOP Sleep Apnea - showroom sales assistant Hx Hypertension Yes 06/03/24 07:22 Hx Sleep Apnea No 06/03/24 07:22 CPAP No 06/03/24 07:22 BIPAP No 06/03/24 07:22 Do you snore loudly (louder No 06/03/24 07:22 than talking or can be heard Do you often feel tired/ No 06/03/24 07:22 fatigued/ sleepy during daytime? Has anyone observed you stop No 06/03/24 07:22 breathing during sleep? STOP Results Negative 06/03/24 07:22 QUESTION #5 FULL TEXT : Do you snore loudly (louder than talking or can be heard through closed doors)? 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 Specify any problems Hx of Preganancy in last 3 N/A 06/02/24 13:16 Months Nurse Filling Out Transfusion [facility] 06/02/24 13:16 & Questions: Date: 06/02/24 06/02/24 13:16 Time: 13:23 06/02/24 13:16 Patient unable to answer at this time (ie. confused, unrespo /Reproduction History /Reproductive History - showroom sales assistant: /Reproductive Hx- showroom sales assistant Hx Now No 06/03/24 07:22 Gestational Age (in weeks): EDC: Hx Hx Para Hx Section [facility] Medical History Wears glasses Prostate disease Migraine headache Gastric reflux Smoker Leg cramps History of edema History of echocardiogram Hypertension Fatigue COPD (chronic obstructive pulmonary disease) Thrombocytopenia Murmur, cardiac Dyspnea Fatigue COPD exacerbation Generalized headaches Tobacco abuse Encounter for screening for malignant neoplasm of lung in current smoker with 30 pack year history or greater COVID-19 Marijuana abuse Opioid abuse Coronary artery calcification seen on CAT scan Right bundle branch block (RBBB) Thoracic aortic aneurysm (TAA) Nicotine dependence Essential (primary) hypertension Facial abscess Tobacco use Facial cellulitis (04/2020) Elevated liver enzymes Acute hepatitis Cluster headache Home Medications ?Medication ?Instructions ?Recorded ?Last Taken ?Type nebulizers #1 ea 04/04/22 Unknown Rx budesonide-formoterol HFA 160 2 puff inhalation BID #10.2 grams 04/11/22 Unknown Rx mcg-4.5 mcg/actuation aerosol inhaler (Symbicort) blood pressure monitor (Blood #1 ea 05/23/22 Unknown Rx Pressure Kit) albuterol sulfate 90 mcg/actuation 1 - 2 puff inhalation Q6H PRN 12/04/22 Unknown Rx aerosol inhaler (ProAir HFA) shortness of breath or wheezing #8.5 grams omeprazole 40 mg capsule,delayed 40 mg PO QDAY #30 caps 04/29/24 Unknown Rx release sucralfate 1 gram tablet 1 g PO 4X/DAY 04/29/24 Unknown History tamsulosin 0.4 mg capsule 0.4 mg PO QDAY 04/29/24 Unknown History valsartan 160 mg tablet 160 mg PO QDAY 04/29/24 Unknown History Allergy/AdvReac Type Severity Reaction Status Date / Time No Known Allergies Allergy Verified 06/03/24 07:23 Family History Mother Skin cancer Father Hypertension COPD (chronic obstructive pulmonary disease) Surgical History History of surgery on arm History of hemorrhoidectomy Social History Smoking Status: Current every day smoker tobacco type: cigarettes Tobacco: How many years used: 45 Electronic Cigarette Use: not used how long ago did patient quit smoking: has went down to half a pack a day in the last six months second hand exposure: Yes (roommates smoked (3-4yr time period)) quit status: has quit before substance use type: marijuana, opiates and other details: stop opiod use, continues to use marijuana Review of Systems (Anesthesia) ROS Narrative System reviewed and no additional complaints, except as documented.
--- NOTE | 2024-06-03 07:57 | PRE.ANES_ITS ---
ASA Classification* ASA Classification ASA Classification: 2 Assessment & Plan Anesthesia* Anesthesia Assessment Anesthesia Assessment: Discussed sedation and/or anesthesia options, risks, benefits, and alternatives with patient/parents/legal guardian/POA. Questions invited. The patient/parents/legal guardian/POA seems to understand and agrees to proceed with anesthesia plan. Reviewed the physical assessment, medical history, allergy history and patient home medications list prior to surgery/procedure/anesthetic and documented any changes. Performed airway and anesthesia risk assessments. Anesthesia Type Anesthesia Type: MAC Anesthesia Focused Assessment* Temperature: 97.6 F Pulse Rate: 73 Blood Pressure: 176/81 Respiratory Rate: 18 Pulse Ox: 100 Airway Assessment Mouth opens: >3 cm Mallampati Score: II Focused Labs Anesthesia Preop lab: CBC WBC 13.0 K/mm3 (4.4-11.0) H 04/09/22 10:30 2 RBC 5.07 M/mm3 (4.6-6.2) 04/09/22 10:30 04/09/22 Hgb 16.3 g/dL (13.0-16.5) 04/09/22 10:30 04/09/22 Hct 49.0 % (40-54) 04/09/22 10:30 04/09/22 Plt Count 181 K/mm3 (150-450) 04/09/22 10:30 04/09/22 CHEMISTRY Potassium 4.0 mmol/L (3.5-5.1) 04/09/22 10:30 04/09/22 Sodium 135 mmol/L (136-145) L 04/09/22 10:30 04/09/22 BUN 26 mg/dL (7-18) H 04/09/22 10:30 04/09/22 Creatinine 1.11 mg/dL (0.70-1.30) 04/09/22 10:30 04/09/22 Glucose 68 mg/dL (74-106) L 04/09/22 10:30 04/09/22 POC Glucose 124 mg/dL (70-110) H 05/15/19 09:51 05/15/19 TSH 2.71 uIU/mL (0.358-3.74) 04/04/22 15:39 COAG PT 13.2 SECONDS (11.7-14.9) 05/04/20 16:44 Pre-Assessment Diagnosis/Proposed Procedure Planned Operative Procedure(s): EGD Anesthesia History 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 When Was Last Pacemaker Check QUESTION #4 FULL TEXT: You/Your Family Experience fever (hyperthermia) with Anesthesia Last Oral Intake Last Oral intake: Last Oral Intake NPO since 00:00 06/03/24 07:25 Meds taken in AM with sips of No 06/03/24 07:25 water? Meds patient instructed to take am of surgery PONV PONV - supervisor network control operators: PONV - supervisor network control operators Female No 06/02/24 13:16 HX of Motion Sickness No 06/02/24 13:16 HX of N/V After Surgery No 06/02/24 13:16 Non-Smoker No 06/02/24 13:16 Duration of Surgery greater No 06/02/24 13:16 than 60 minutes Number of Risk Factors PONV Score Height & Weight Height & Weight: Anesthesia: Height & Weight Height 6 ft 1 in 06/03/24 07:25 Weight: 65 kg 06/03/24 07:25 Body Mass Index (BMI) 18.8 06/03/24 07:25 Respiratory Assessment Respiratory Assessment - supervisor network control operators: Respiratory Tract Infection Hx - supervisor network control operators Hx Respiratory Tract Infection No 06/03/24 07:22 STOP Sleep Apnea STOP Sleep Apnea - supervisor network control operators: STOP Sleep Apnea - supervisor network control operators Hx Hypertension Yes 06/03/24 07:22 Hx Sleep Apnea No 06/03/24 07:22 CPAP No 06/03/24 07:22 BIPAP No 06/03/24 07:22 Do you snore loudly (louder No 06/03/24 07:22 than talking or can be heard Do you often feel tired/ No 06/03/24 07:22 fatigued/ sleepy during daytime? Has anyone observed you stop No 06/03/24 07:22 breathing during sleep? STOP Results Negative 06/03/24 07:22 QUESTION #5 FULL TEXT : Do you snore loudly (louder than talking or can be heard through closed doors)? 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 Specify any problems Hx of Preganancy in last 3 N/A 06/02/24 13:16 Months Nurse Filling Out Transfusion [facility] 06/02/24 13:16 & Questions: Date: 06/02/24 06/02/24 13:16 Time: 13:23 06/02/24 13:16 Patient unable to answer at this time (ie. confused, unrespo /Reproduction History /Reproductive History - supervisor network control operators: /Reproductive Hx- supervisor network control operators Hx Now No 06/03/24 07:22 Gestational Age (in weeks): EDC: Hx Hx Para Hx Section [facility] Medical History Wears glasses Prostate disease Migraine headache Gastric reflux Smoker Leg cramps History of edema History of echocardiogram Hypertension Fatigue COPD (chronic obstructive pulmonary disease) Thrombocytopenia Murmur, cardiac Dyspnea Fatigue COPD exacerbation Generalized headaches Tobacco abuse Encounter for screening for malignant neoplasm of lung in current smoker with 30 pack year history or greater COVID-19 Marijuana abuse Opioid abuse Coronary artery calcification seen on CAT scan Right bundle branch block (RBBB) Thoracic aortic aneurysm (TAA) Nicotine dependence Essential (primary) hypertension Facial abscess Tobacco use Facial cellulitis (04/2020) Elevated liver enzymes Acute hepatitis Cluster headache Home Medications ?Medication ?Instructions ?Recorded ?Last Taken ?Type nebulizers #1 ea 04/04/22 Unknown Rx budesonide-formoterol HFA 160 2 puff inhalation BID #1 0.2 grams 04/11/22 Unknown Rx mcg-4.5 mcg/actuation aerosol inhaler (Symbicort) blood pressure monitor (Blood #1 ea 05/23/22 Unknown R x Pressure Kit) albuterol sulfate 90 mcg/actuation 1 - 2 puff inhalati on Q6H PRN 12/04/22 Unknown Rx aerosol inhaler (ProAir HFA) shortness of breath or wh eezing #8.5 grams omeprazole 40 mg capsule,delayed 40 mg PO QDAY #30 cap s 04/29/24 Unknown Rx release sucralfate 1 gram tablet 1 g PO 4X/DAY 04/29/24 Unkno wn History tamsulosin 0.4 mg capsule 0.4 mg PO QDAY 04/29/24 Unkn own History valsartan 160 mg tablet 160 mg PO QDAY 04/29/24 Unkn own History Allergy/AdvReac Type Severity Reaction Status Date / Time No Known Allergies Allergy Verified 06/03/24 07:23 Family History Mother Skin cancer Father Hypertension COPD (chronic obstructive pulmonary disease) Surgical History History of surgery on arm History of hemorrhoidectomy Social History Smoking Status: Current every day smoker tobacco type: cigarettes Tobacco: How many years used: 45 Electronic Cigarette Use: not used how long ago did patient quit smoking: has went down to half a pack a day in the last six months second hand exposure: Yes (roommates smoked (3-4yr time period)) quit status: has quit before substance use type: marijuana, opiates and other details: stop opiod use, continues to use marijuana Review of Systems (Anesthesia) ROS Narrative System reviewed and no additional complaints, except as documented.
--- NOTE | 2024-06-03 08:00 | IMM_PTH ---
PATIENT: ISHAN MCCANN LOC: EN U#:[id number] AGE/SX: 64/M ROOM: RE06/03/[address]: Dr. Dania Barone MD : 1960 BED: DIS: 06/03/2024 SPEC #: [id number] RECD: 06/03/24 13:06 STATUS: VARUN HUMBERTO #: [id number] SHEA: 06/03/24 08:[address]: Dania Barone DEPT: IMMUNOHISTOCHEMISTRY RECD BY: Vernon Cantrell ENTERED: 06/03/24 13:06 SP TYPE: IMMUNO OTHR DR: Bob Wiley, [place] Tissues: A - Gastric mucous membrane Procedures: H Pylori (initial) PHYSICIAN & INSTITUTION [place] [id number] SPECIMEN INFORMATION: Tissue Source: A- Gastric antrum biopsy Clinical Info: Epigastric abdominal pain, abnormal CT scan, stomach Specimen Number: [id number] CPT code: 80308 METHODOLOGY: Deparaffinized sections of prefer/formalin-fixed tissue or PAP/DQ stained slides are incubated with monoclonal/polyclonal antibodies/oligonucleotide probes. Localization is made via biotin free immunoperoxidase method. Appropriate controls are performed and reacted as expected. Results on target cell population are indicated in the following table: RESULTS: ANTIBODY / CLONE RESULT Block A H Pylori (polyclonal) negative These tests were developed and their performance characteristics determined by [facility]. They may not have been cleared or approved by the [place]. Food and Drug Administration. The FDA has determined that such clearance or approval is not necessary. The above immunohistochemical/dualISH markers are ordered and reviewed by the Pathologist. INTERPRETATION: A. Gastric antrum, biopsy: Negative for Helicobacter pylori organisms. 06/04/2024
--- NOTE | 2024-06-03 08:47 | OP.EGD_ITS ---
Patient Name: Ellie Vail Procedure Date: 06/03/2024 8:27 AM Date of : 1960 Age: 64 Procedure: Upper GI endoscopy Indications: Epigastric abdominal pain, Abnormal CT of the GI tract Providers: Dania Barone MD Medicines: Monitored Anesthesia Care Patient Profile: This is a 64 year old male. Complications: No immediate complications. Procedure: Pre-Anesthesia Assessment: - Prior to the procedure, a History and Physical was performed, and patient medications and allergies were reviewed. The patient's tolerance of previous anesthesia was also reviewed. The risks and benefits of the procedure and the sedation options and risks were discussed with the patient. All questions were answered, and informed consent was obtained. Prior Anticoagulants: The patient has taken no anticoagulant or antiplatelet agents. ASA Grade Assessment: Per anesthesia. After reviewing the risks and benefits, the patient was deemed in satisfactory condition to undergo the procedure. After obtaining informed consent, the endoscope was passed under direct vision. Throughout the procedure, the patient's blood pressure, pulse, and oxygen saturations were monitored continuously. The gastroscope was introduced through the mouth, and advanced to the second part of duodenum. The upper GI endoscopy was accomplished without difficulty. The patient tolerated the procedure well. Scope In: 8:34:07 AM Scope Out: 8:40:37 AM Total Procedure Duration Time 0 hours 6 minutes 30 seconds Findings: The Z-line was irregular and was found 45 cm from the incisors. Biopsies were taken with a cold forceps for histology. Diffuse moderate inflammation characterized by erythema was found in the gastric antrum. Biopsies were taken with a cold forceps for histology. Biopsies were taken with a cold forceps for Helicobacter pylori cultures. The examined duodenum was normal. Impression: - Z-line irregular, 45 cm from the incisors. Biopsied. - Gastritis. Biopsied. - Normal examined duodenum. Recommendation: - Await pathology results. - Discharge patient to home. - Resume previous diet. - Continue present medications. - Await pathology results. - Recommend taking omeprazole 40 mg daily at least would like you to also take the Carafate even once or twice a day if unable to do 4 times a day x 2 weeks. Procedure Code(s): --- Professional --- 57617, Esophagogastroduodenoscopy, flexible, transoral; with biopsy, single or multiple Diagnosis Code(s): --- Professional --- K22.89, Other specified disease of esophagus K29.70, Gastritis, unspecified, without bleeding R10.13, Epigastric pain R93.3, Abnormal findings on diagnostic imaging of other parts of digestive tract CPT copyright 2021 [employer]. All rights reserved. The codes documented in this report are preliminary and upon safety trainer review may be revised to meet current compliance requirements. MD Dania Ramos MD 06/03/2024 8:46:26 AM This report has been signed electronically. Number of Addenda: 0 Note Initiated On: 06/03/2024 8:27 AM
--- NOTE | 2024-06-03 08:47 | OP.CCLET_ITS ---
[facility] for Ellie [facility] This procedure was performed on Monday, June 03, 2024. My impressions and recommendations are as follows: Impressions : - Z-line irregular, 45 cm from the incisors. Biopsied. - Gastritis. Biopsied. - Normal examined duodenum. Recommendations : - Await pathology results. - Discharge patient to home. - Resume previous diet. - Continue present medications. - Await pathology results. - Recommend taking omeprazole 40 mg daily at least would like you to also take the Carafate even once or twice a day if unable to do 4 times a day x 2 weeks. My findings are described in the full procedure note, which is enclosed. If I can be of further assistance, please feel free to contact me at Doctor phone number(s): , Work: . Sincerely, MD Dania Ramos MD 06/03/2024 8:46:26 AM This report has been signed electronically.
--- NOTE | 2024-06-03 08:53 | PCM.POST.ANE ---
Anesthesia: Postop Eval I Current Vital Signs Temperature: 97 F Pulse Rate: 68 Blood Pressure: 141/122 Respiratory Rate: 12 Pulse Ox: 96 Oxygen Delivery Method: Room Air Assessment Airway patent: Yes Spontaneous unlabored respirations: Yes Mental status: Asleep nausea: No Vomiting: No Anesthesia Complication: No Fluid Hydration Crystalloid volume administer (ml): 30 Total IV fluid infused: 30 Progress Note Anesthesia document: Postop Eval 1 completed: Yes
[2024-06-03] MEDS: Pantoprazole Sodium 40 MG Tablet PO (09:43)
--- NOTE | 2024-06-03 09:57 | PCM.POSTANE2 ---
Anesthesia Postop Eval I Sum Postop Eval Completion status Anesthesia document: Postop Eval 1 completed: Yes Anesthesia Postop Eval I Summary Anesthesia Postop Eval I Summary: Anesthesia Postop Eval I: Assessment Summary Airway patent Yes 06/03/24 08:53 [email or web address] Spontaneous unlabored Yes 06/03/24 08:53 [email or web address] respirations Mental status Asleep 06/03/24 08:53 [email or web address] nausea No 06/03/24 08:53 [email or web address] Vomiting No 06/03/24 08:53 [email or web address] Anesthesia Postop Eval I: Fluid Summary Crystalloid volume administer 30 06/03/24 08:53 [email or web address] (ml) Colloids volume administered ( ml) Blood Product volume administered (ml) Total IV fluid infused 30 06/03/24 08:53 [email or web address] Anesthesia Postop Eval I: Summary Notes Anesthesia Complication No 06/03/24 08:53 [email or web address] Anesthesia Complication Comment: Post-operative progress note Anesthesia: Postop Eval II Evaluation Mental status: Awake Pain Level: 0 nausea: No Vomiting: No
== END 2024-06-03 09:55 | disposition home or self-care (01) ==
LOC: EN 07:01 → AC 07:03
PROVIDERS: PCP Nurse Practitioner Family; Referring Provider Nurse Practitioner Family; Visit Provider Surgery
PROC: 0DJ08ZZ Inspection of Upper Intestinal Tract, Via Natural or Artificial Opening Endoscopic (ICD-10-PCS; CPT 43235; principal; 2024-06-03 07:55)
DX: K29.70 Gastritis, unspecified, without bleeding (principal); J44.9 Chronic obstructive pulmonary disease, unspecified; K21.00 Gastro-esophageal reflux disease with esophagitis, without bleeding; I10 Essential (primary) hypertension; I25.10 Atherosclerotic heart disease of native coronary artery without angina pectoris; F17.210 Nicotine dependence, cigarettes, uncomplicated; Z79.51 Long term (current) use of inhaled steroids; Z79.899 Other long term (current) drug therapy
CPT/HCPCS: 43239; 88305; 88312; 88342; A4216; J2405